=== PATIENT | female | born 1930 | race Caucasian/White ===

== ENCOUNTER 2018-03-14 04:51 | Emergency (ER) | payer OTHER ==
[2018-03-14 05:50] LABS: Absolute Lymphocytes (CBC) 1.5 K/uL (0.7-4.9); Absolute Monocytes 0.6 K/uL (0.1-1.3); Absolute Neutrophil 3.9 K/uL (1.8-8.0); Basophils % 1.1 % (0-1.3); Eosinophils % 6.4 % (0-4.4); Hematocrit 40.2 % (36.0-45.0); Lymphocytes % 23.8 % (15.3-44.8); MPV 7.3 fL (7.6-11.3); Monocytes % 8.5 % (3.3-12.3); RBC Red Blood Cell Count 4.14 M/uL (3.86-4.86)
[2018-03-14] MEDS ORDERED: NA CHLORIDE 0.9% 1,000 ML ONE (05:54)
[2018-03-14 06:04] LABS: Potassium 4.2 mEq/L (3.6-5.0)
[2018-03-14 06:11] LABS: Urine Blood NEGATIVE (NEG); Urine Glucose NEGATIVE (NEG); Urine Protein NEGATIVE (NEG)
[2018-03-14 06:12] LABS: Urine Bacteria LOADED /HPF (<20); Urine Culture Reflex Order NOT NEEDED; Urine RBC NONE SEEN /HPF (NONE SEEN)
--- NOTE | 2018-03-14 06:31 | EDPHYS ---
Physician Documentation [facility] Name: Shanon Han Age: 87 yrs Sex: Female : 1930 Arrival Date: 03/14/2018 Time: 04:54 Bed 18 Private MD: ED Physician Pietro Dillard HPI: 03/14 06:27 This 87 yrs old Female presents to ER via EMS with complaints of AMS, not rn talking. 06:27 The patient presents with decreased responsiveness. Onset: The symptoms/episode rn began/occurred this morning. Possible causes: unknown. Current symptoms: In the emergency department the patient's symptoms have improved. The patient has experienced similar episodes in the past. The patient has not recently seen a physician. Report fine yesterday, this morning not wanting to talk, is following commands, moves everything, just not talking. No fever. NO trauma.. Historical: - Allergies: 05:06 No Known Allergies; ea - Home Meds: 05:06 acetaminophen 500 mg Oral tab 2 tabs every 6 hours [Active]; aspirin 81 mg Oral TbEC 1 ea tab once daily [Active]; bumetanide 0.5 mg Oral tab 1 tab once daily [Active]; carbidopa-levodopa 25-250 mg Oral tab 1 tab 4 times per day [Active]; Durezol 0.05 % ophthalmic drop 1 drop ONCE WEEKLY [Active]; levothyroxine 150 mcg tab 1 tab once daily [Active]; losartan 100 mg Oral tab 1 tab once daily [Active]; meloxicam 7.5 mg Oral tab 1 tab once daily [Active]; midodrine 2.5 mg oral tab 1 tab bid [Active]; paroxetine HCl 20 mg Oral tab 1.5 tab once daily [Active]; Restasis 0.05 % ophthalmic dpet 1 drop 2 times per day [Active]; rivastigmine 9.5 mg/24 hr transdermal pt24 [Active]; venlafaxine 37.5 mg oral tab 1 tab 3 times per day [Active]; meclizine 12.5 mg Oral tab 1 tabs every 12 hours [Active]; - PMHx: 05:06 Anxiety; Depression; Hypertension; Hypothyroidism; Parkinsons; ea - PSHx: 05:06 Tubal ligation; Appendectomy; ea - Immunization history:: Adult Immunizations unknown. - Social history:: Smoking status: unknown. - Ebola Screening: : No symptoms or risks identified at this time. - Family history:: not pertinent. - Hospitalizations: : No recent hospitalization is reported. ROS: 06:27 Unable to obtain ROS due to patient being uncooperative. rn Exam: 06:27 Constitutional: This is a well developed, well nourished patient who is awake, alert, rn and in no acute distress. Head/Face: Normocephalic, atraumatic. Eyes: Pupils equal round and reactive to light, extra-ocular motions intact. Lids and lashes normal. Conjunctiva and sclera are non-icteric and not injected. Cornea within normal limits. Periorbital areas with no swelling, redness, or edema. Neck: Trachea midline, no thyromegaly or masses palpated, and no cervical lymphadenopathy. Supple, full range of motion without nuchal rigidity, or vertebral point tenderness. No Meningismus. Cardiovascular: Regular rate and rhythm with a normal S1 and S2. No gallops, murmurs, or rubs. Normal PMI, no JVD. No pulse deficits. Respiratory: Lungs have equal breath sounds bilaterally, clear to auscultation and percussion. No rales, rhonchi or wheezes noted. No increased work of breathing, no retractions or nasal flaring. Abdomen/GI: Soft, non-tender, with normal bowel sounds. No distension or tympany. No guarding or rebound. No evidence of tenderness throughout. MS/ Extremity: Pulses equal, no cyanosis. Neurovascular intact. Full, normal range of motion. Equal circumference. Neuro: Awake and alert, moves all 4 extremities, answers by shaking head, doesn't want to talk Vital Signs: 04:50 BP 167 / 80; Pulse 70; Resp 18; Temp 97.7; Pulse Ox 99% on R/A; Weight 77.11 kg; Height ea 5 ft. 5 in. (165.10 cm); Pain 0/10; 06:00 BP 180 / 65; Pulse 77; Resp 18; Pulse Ox 99% on R/A; Pain 0/10; ea 04:50 Body Mass Index 28.29 (77.11 kg, 165.10 cm) ea MDM: 04:54 Patient medically screened. rn 06:27 Differential Diagnosis: CVA, electrolyte abnormality, hypoglycemia, pneumonia, UTI, rn volume depletion. Data reviewed: vital signs, nurses notes, lab test result(s), EKG, radiologic studies, CT scan, and as a result, I will discharge patient. Counseling: I had a detailed discussion with the patient and/or guardian regarding: the historical points, exam findings, and any diagnostic results supporting the discharge/admit diagnosis, lab results, radiology results, the need for outpatient follow up, to return to the emergency department if symptoms worsen or persist or if there are any questions or concerns that arise at home. Response to treatment: the patient's condition has returned to base line. Special discussion: I discussed with the patient/guardian in detail that at this point there is no indication for admission to the hospital. It is understood, however, that if the symptoms persist or worsen the patient needs to return immediately for re-evaluation. ED course: Daughter here, states this happens when doesn't eat or has UTI, very comfortable if she goes home with abx for UTI.. 03/14 04:55 Order name: CBC with Diff; Complete Time: 06:23 rn 03/14 04:55 Order name: Basic Metabolic Panel; Complete Time: 06: rn 03/14 04:55 Order name: Urine Microscopic Only; Complete Time: 06:23 rn 03/14 04:55 Order name: Urine Culture rn 03/14 04:55 Order name: Blood Culture Adult (2) rn 03/14 04:55 Order name: Procalcitonin; Complete Time: 06:27 rn 03/14 04:55 Order name: IV Start; Complete Time: 05:57 rn 03/14 04:55 Order name: CT Head Brain wo Cont rn 03/14 04:55 Order name: Urine Dipstick-Ancillary (obtain specimen); Complete Time: 05:57 rn 03/14 04:55 Order name: EKG - Nurse/Tech; Complete Time: 06:29 03/14 04:56 Order name: EKG; Complete Time: 04:56 rn 03/14 05:54 Order name: Urine Dipstick--Ancillary (enter results); Complete Time: 06:23 rg2 Administered Medications: 05:55 Drug: NS 0.9% 500 ml Route: IV; Rate: bolus; Site: right forearm; ea 06:55 Follow up: Response: No adverse reaction; IV Status: Completed infusion ea 06:40 Drug: Rocephin - (cefTRIAXone) 1 grams Route: IVPB; Infused Over: 30 mins; Site: right ea antecubital; 06:55 Follow up: Response: No adverse reaction; IV Status: Completed infusion ea Disposition: 03/14/18 06:31 Discharged to Home. Impression: Urinary tract infection, site not specified, Delirium due to known physiological condition. - Condition is Stable. - Discharge Instructions: Confusion, Urinary Tract Infection. - Prescriptions for cefpodoxime 100 mg Oral Tablet - take 2 tablet by ORAL route every 12 hours for 10 days take with food; 40 tablet. - Medication Reconciliation Form, Thank You Letter, Antibiotic Education, Prescription Opioid Use form. - Follow up: Private Physician; When: As needed; Reason: Recheck today's complaints, Re-evaluation by your physician. - Problem is new. - Symptoms have improved. Signatures: Dispatcher [employer] EDPietro Rouse MD MD rn Antunez, Elena, RN RN ea Corrections: (The following items were deleted from the chart) 07:02 06:31 03/14/2018 06:31 Discharged to Home. Impression: Urinary tract infection, site ea not specified; Delirium due to known physiological condition. Condition is Stable. Forms are Medication Reconciliation Form, Thank You Letter, Antibiotic Education, Prescription Opioid Use. Follow up: Private Physician; When: As needed; Reason: Recheck today's complaints, Re-evaluation by your physician. Problem is new. Symptoms have improved. rn
--- NOTE | 2018-03-14 06:31 | ER ---
Nurse's Notes [facility] Name: Shanon Han Age: 87 yrs Sex: Female : 1930 Arrival Date: 03/14/2018 Time: 04:54 Bed 18 Private MD: Diagnosis: Urinary tract infection, site not specified;Delirium due to known physiological condition Presentation: 03/14 04:50 Presenting complaint: EMS states: Called to [facility], Staff reported pt was ea unresponsive, upon arrival pt was clonic, non verbal and responded to painful stimuli. Transition of care: [facility]. Onset of symptoms was March 14, 2018. Risk Assessment: Do you want to hurt yourself or someone else? Patient reports no desire to harm self or others. Initial Sepsis Screen: Does the patient meet any 2 criteria? No. Patient's initial sepsis screen is negative. Does the patient have a suspected source of infection? No. Patient's initial sepsis screen is negative. Care prior to arrival: None. 04:50 Method Of Arrival: EMS: [facility] ea 04:50 Acuity: HEMANT 3 ea 05:01 Care prior to arrival: BGL 103. ea Triage Assessment: 04:50 General: Appears in no apparent distress. Behavior is calm, cooperative, appropriate ea for age. Pain: Unable to use pain scale. Pt able to follow some commands, pt answers some questions by nodding head. EENT: No deficits noted. Neuro: Level of Consciousness is awake, alert, obeys commands. Cardiovascular: Heart tones S1 S2 present Patient's skin is warm and dry. Respiratory: Airway is patent Respiratory effort is even, unlabored, Respiratory pattern is regular, symmetrical, Breath sounds are clear bilaterally. GI: Abdomen is non-distended, Bowel sounds present X 4 quads. : No signs and/or symptoms were reported regarding the genitourinary system. Derm: Skin is pink, warm \T\ dry. Historical: - Allergies: 05:06 No Known Allergies; ea - Home Meds: 05:06 acetaminophen 500 mg Oral tab 2 tabs every 6 hours [Active]; aspirin 81 mg Oral TbEC 1 ea tab once daily [Active]; bumetanide 0.5 mg Oral tab 1 tab once daily [Active]; carbidopa-levodopa 25-250 mg Oral tab 1 tab 4 times per day [Active]; Durezol 0.05 % ophthalmic drop 1 drop ONCE WEEKLY [Active]; levothyroxine 150 mcg tab 1 tab once daily [Active]; losartan 100 mg Oral tab 1 tab once daily [Active]; meloxicam 7.5 mg Oral tab 1 tab once daily [Active]; midodrine 2.5 mg oral tab 1 tab bid [Active]; paroxetine HCl 20 mg Oral tab 1.5 tab once daily [Active]; Restasis 0.05 % ophthalmic dpet 1 drop 2 times per day [Active]; rivastigmine 9.5 mg/24 hr transdermal pt24 [Active]; venlafaxine 37.5 mg oral tab 1 tab 3 times per day [Active]; meclizine 12.5 mg Oral tab 1 tabs every 12 hours [Active]; - PMHx: 05:06 Anxiety; Depression; Hypertension; Hypothyroidism; Parkinsons; ea - PSHx: 05:06 Tubal ligation; Appendectomy; ea - Immunization history:: Adult Immunizations unknown. - Social history:: Smoking status: unknown. - Ebola Screening: : No symptoms or risks identified at this time. - Family history:: not pertinent. - Hospitalizations: : No recent hospitalization is reported. Screenin:07 Abuse screen: Denies threats or abuse. Nutritional screening: No deficits noted. ea Tuberculosis screening: No symptoms or risk factors identified. Fall Risk Mental Status-. Assessment: 06:14 Reassessment: Patient and/or family updated on plan of care and expected duration. Pain ea level reassessed. Pt verbalized need to daughter, pt alert oriented to self. Respirations even and unlabored chest expansions even and symmetrical. No s/s of pain or discomfort noted at this time. Daughter remains at bedside. 06:40 Reassessment: Patient and/or family updated on plan of care and expected duration. Pain ea level reassessed. Patient is alert, oriented x 3, equal unlabored respirations, skin warm/dry/pink. Pts daughter at bedside. 06:45 Reassessment: Patient and/or family updated on plan of care and expected duration. Pain ea level reassessed. Patient is alert, oriented x 3, equal unlabored respirations, skin warm/dry/pink. Discharge instructions given to patient, verbalized the understanding of instruction. Vital Signs: 04:50 BP 167 / 80; Pulse 70; Resp 18; Temp 97.7; Pulse Ox 99% on R/A; Weight 77.11 kg; Height ea 5 ft. 5 in. (165.10 cm); Pain 0/10; 06:00 BP 180 / 65; Pulse 77; Resp 18; Pulse Ox 99% on R/A; Pain 0/10; ea 04:50 Body Mass Index 28.29 (77.11 kg, 165.10 cm) ea ED Course: 04:54 Patient arrived in ED. rn 04:57 Pietro Dillard MD is Attending Physician. rn 05:00 Triage completed. ea 05:13 Iesha Ruth, SAÚL is Primary Nurse. ea 05:13 Arm band placed on right wrist. ea 05:13 Patient has correct armband on for positive identification. Bed in low position. Call ea light in reach. Side rails up X2. Adult w/ patient. 05:59 CT Head Brain wo Cont In Process Unspecified. EDMS 06:07 CT completed. Patient tolerated procedure well. Patient moved to CT via stretcher. Patient moved back from CT. 06:25 Inserted saline lock: 22 gauge in right forearm, using aseptic technique. Blood ea collected. 06:43 No provider procedures requiring assistance completed. ea 06:59 IV discontinued, intact, bleeding controlled, No redness/swelling at site. Pressure ea dressing applied. Administered Medications: 05:55 Drug: NS 0.9% 500 ml Route: IV; Rate: bolus; Site: right forearm; ea 06:55 Follow up: Response: No adverse reaction; IV Status: Completed infusion ea 06:40 Drug: Rocephin - (cefTRIAXone) 1 grams Route: IVPB; Infused Over: 30 mins; Site: right ea antecubital; 06:55 Follow up: Response: No adverse reaction; IV Status: Completed infusion ea Outcome: 06:31 Discharge ordered by . rn 06:58 Discharged to home ambulatory. ea 06:58 Condition: improved 06:58 Discharge instructions given to patient, Instructed on discharge instructions, follow up and referral plans. medication usage, Demonstrated understanding of instructions, follow-up care, medications, Prescriptions given X 1. 07:02 Patient left the ED. ea Addendum: 03/17/2018 09:48 Addendum: Culture Results: Bacteria is resistant to, has intermediate sensitivity, or i w is not tested against prescribed antibiotics. Report given to ESAU for further evaluation and then to online content editor for follow up with patient. Phone call Attempt #1 pt requests that culture report be faxed to Dr. Guidry in [place], faxed to [phone]. 20:55 Addendum: Other Daughter Maricarmen Hurtado [phone] called to state that the patient f c did not understand her phone call from this am. I explained results and she is requesting that rx be called to [facility] in [place]. This was done. Maricarmen also understand that pt must follow up with Dr Guidry in 2 weeks for f/u urine. Signatures: Dispatcher [employer] Yovany Finnegan Felicia, RN Tammy Shaffer RN RN iw Nieto, Roman, MD MD rn Antunez, Elena, RN RN ea
[2018-03-14] MEDS ORDERED: CEFTRIAXONE/SWI 1gm 1 GM/10 ML SYR ONE (06:34)
[2018-03-14 07:08] VITALS: BP 180/65; O2SAT 99
--- NOTE | 2018-03-14 09:09 | EKG ---
Test Date: 2018-03-14 Test Time: 06:25:26 [employer]: THERESA MEASUREMENT RESULTS: Intervals: Rate: 86 SC: 162 QRSD: 74 QT: 380 QTc: 454 [place]: P: 70 SC: 162 QRS: 22 T: 74 INTERPRETIVE STATEMENTS: Sinus rhythm with premature atrial complexes with aberrant conduction Possible Left atrial enlargement Nonspecific T wave abnormality Abnormal ECG Compared to ECG 07/23/2017 17:35:53 Atrial premature complex(es) now present Aberrant conduction of supraventricular beat(s) now present T-wave abnormality now present Left ventricular hypertrophy no longer present Electronically Signed On 03-14-18 09:08:22 CDT by Mohit Sue
--- NOTE | 2018-03-14 11:34 | RAD REPORT ---
EXAM DESCRIPTION: CT - Head Brain Wo Cont - 03/14/2018 7:09 am CLINICAL HISTORY: Alteration of consciousness/ unresponsive COMPARISON: October 2017 TECHNIQUE: Computed axial tomography of the head was obtained. IV contrast was not requested.A preli minary report was generated by [facility] and reviewed prior to this dictation All CT scans are performed using dose optimization technique as appropriate and may include automated exposure control or mA/KV adjustment according to patient size. FINDINGS: An intracranial bleed is not seen . The ventricles are normal in caliber. No extra-axial fluid collection is noted. Fluid within the sinuses/ mastoids is not seen. IMPRESSION: No acute intracranial abnormality is seen. If patient's symptoms persist MRI of the bra in would be recommended.
== END 2018-03-14 07:02 | disposition home or self-care (01) ==
LOC: ER 04:51
DX: N39.0 Urinary tract infection, site not specified (principal); I10 Essential (primary) hypertension; E03.9 Hypothyroidism, unspecified; G20 Parkinson's disease
CPT/HCPCS: 36415; 70450; 80048; 84145; 85025; 87040; 87077; 87086; 87088; 87186; 93005; 96361; 96374; 99284; J0696; J7030; 81003; 81015

== ENCOUNTER 2018-07-29 12:13 | Emergency (ER) | payer OTHER ==
--- NOTE | 2018-07-29 12:41 | RAD REPORT ---
EXAM DESCRIPTION: CT - Head Brain Wo Cont - 07/29/2018 12:29 pm CLINICAL HISTORY: TRAUMA Head injury. COMPARISON: Head Brain Wo Cont dated 03/14/2018; Head Brain Wo Cont dated 10/07/2017 TECHNIQUE: All CT scans are performed using dose optimization technique as appropriate and may inclu de automated exposure control or mA/KV adjustment according to patient size. FINDINGS: No intracranial hemorrhage, hydrocephalus or extra-axial fluid collection.No areas of brai n edema or evidence of midline shift. The paranasal sinuses and mastoids are clear. The calvarium is intact. IMPRESSION: No acute intracranial abnormality.
--- NOTE | 2018-07-29 13:44 | ER ---
Nurse's Notes [facility] Name: Shanon Han Age: 87 yrs Sex: Female : 1930 Arrival Date: 07/29/2018 Time: 12:14 Bed 14 Private MD: Diagnosis: Superficial injury of head Presentation: 07/29 12:09 Mechanism of Injury: Fall from standing position. Trauma event details: Injury occurred tw2 in the [facility]. 12:15 Presenting complaint: EMS states: pt had an unwitnessed fall , lives at [facility], she tw2 has some bruising and swelling noted to the left eyebrow and on the left occiptal area , hx parkinsons and depression. Transition of care: patient was received from another setting of care (long-term care facility), [facility]. Onset of symptoms was July 29, 2018. Risk Assessment: Do you want to hurt yourself or someone else? Patient reports no desire to harm self or others. Initial Sepsis Screen: Does the patient meet any 2 criteria? No. Patient's initial sepsis screen is negative. Does the patient have a suspected source of infection? No. Patient's initial sepsis screen is negative. Care prior to arrival: None. 12:15 Method Of Arrival: EMS: [facility] tw2 12:15 Acuity: HEMANT 3 tw2 Trauma Activation: Alert Physician: ED Physician; Name: ; Notified At: ; Arrived At: Physician: General Surgeon; Name: ; Notified At: ; Arrived At: Physician: Radiology; Name: ; Notified At: ; Arrived At: Physician: Respiratory; Name: ; Notified At: ; Arrived At: Physician: Lab; Name: ; Notified At: ; Arrived At: Historical: - Allergies: 12:24 No Known Allergies; ph - Home Meds: 12:24 aspirin 81 mg Oral TbEC 1 tab once daily [Active]; bumetanide 0.5 mg Oral tab 1 tab ph once daily [Active]; carbidopa-levodopa 25-250 mg Oral tab 1 tab 4 times per day [Active]; 13:37 acetaminophen 500 mg Oral tab 2 tabs every 6 hours [Active]; Durezol 0.05 % ophthalmic ph drop 1 drop ONCE WEEKLY [Active]; levothyroxine 150 mcg tab 1 tab once daily [Active]; losartan 100 mg Oral tab 1 tab once daily [Active]; meclizine 12.5 mg Oral tab 1 tabs every 12 hours [Active]; meloxicam 7.5 mg Oral tab 1 tab once daily [Active]; midodrine 2.5 mg Oral tab 1 tab BID [Active]; paroxetine HCl 20 mg Oral tab 1.5 tab once daily [Active]; Restasis 0.05 % ophthalmic dpet 1 drop 2 times per day [Active]; rivastigmine 9.5 mg/24 hr transdermal pt24 [Active]; venlafaxine 37.5 mg Oral tab 1 tab 3 times per day [Active]; - PMHx: 13:37 Anxiety; Depression; Hypertension; Hypothyroidism; Parkinsons; ph - PSHx: 13:37 Tubal ligation; Appendectomy; ph - Immunization history:: Adult Immunizations up to date. - Immunization history: Last tetanus immunization: unknown. - Family history:: not pertinent. - Social history:: Smoking status: Patient/guardian denies using tobacco. - Ebola Screening: : No symptoms or risks identified at this time. - Hospitalizations: : No recent hospitalization is reported. Screenin:22 Abuse screen: Denies threats or abuse. Denies injuries from another. Nutritional ph screening: No deficits noted. Tuberculosis screening: No symptoms or risk factors identified. Fall Risk Fall in past 12 months (25 points). No secondary diagnosis (0 pts). No IV (0 pts). Ambulatory Aid- None/Bed Rest/Nurse Assist (0 pts). Gait- Weak (10 pts.). Mental Status- Oriented to own ability (0 pts). Total Lafleur Fall Scale indicates Low Risk Score (25-44 pts). Fall prevention measures have been instituted. Side Rails Up X 2 Placed close to Nursing Station Frequent Obs/Assesments occuring As available Patient and Family Educated on Fall Prevention Program and strategies. Primary Survey: 12:15 A: Airway: patent, No supplemental oxygen in use on arrival. Oral cavity: clear, ph Trachea midline. Breathing/Chest: Respiratory pattern: regular, Respiratory effort: spontaneous, unlabored, Breath sounds: clear, bilaterally. Chest inspection: symmetrical rise and fall of the chest. Circulation: Skin color: pink, Skin temperature: warm, dry. Disability Alert. 13:25 Reassessment Breathing/Chest Respiratory pattern Regular Respiratory effort Spontaneous ph Unlabored Circulation Color [place] Temperature Warm Dry Disability Alert. Assessment: 12:15 General: Appears in no apparent distress. comfortable, Behavior is calm, cooperative, ph appropriate for age. Pain: Complains of pain in left rastafarian. Neuro: Level of Consciousness is awake, alert, obeys commands, Oriented to person, place, situation. Cardiovascular: Denies chest pain, nausea, vomiting. Respiratory: Airway is patent Trachea midline Respiratory effort is even, unlabored, Respiratory pattern is regular, symmetrical. Derm: Skin is intact, is healthy with good turgor, Skin is pink, warm \T\ dry. Bruising that is dark purple, on outer aspect of left eyebrow. Musculoskeletal: Circulation, motion, and sensation intact. Range of motion: limited in all extremities. 13:00 Reassessment: Patient appears in no apparent distress at this time. Patient and/or ph family updated on plan of care and expected duration. Pain level reassessed. Pt d/c home w/ son-in-law. 13:12 Reassessment: Report called to [facility]. ph Vital Signs: 12:16 BP 170 / 71; Pulse 76; Resp 17; Pulse Ox 95% on R/A; Pain 0/10; tw2 13:15 BP 164 / 68; Pulse 74; Resp 18; Temp 97.8; Pulse Ox 96% on R/A; ph Ahmet Coma Score: 12:20 Eye Response: spontaneous(4). Verbal Response: oriented(5). Motor Response: obeys ph commands(6). Total: 15. 13:15 Eye Response: spontaneous(4). Verbal Response: oriented(5). Motor Response: obeys ph commands(6). Total: 15. Trauma Score (Adult): 12:20 Eye Response: spontaneous(1); Verbal Response: oriented(1); Motor Response: obeys ph commands(2); Systolic BP: > 89 mm Hg(4); Respiratory Rate: 10 to 29 per min(4); Ahmet Score: 15; Trauma Score: 12 13:15 Eye Response: spontaneous(1); Verbal Response: oriented(1); Motor Response: obeys ph commands(2); Systolic BP: > 89 mm Hg(4); Respiratory Rate: 10 to 29 per min(4); Ahmet Score: 15; Trauma Score: 12 ED Course: 12:14 Patient arrived in ED. tw2 12:15 Patient maintains SpO2 saturation greater than 95% on room air. Thermoregulation: warm ph blanket given to patient. 12:16 Triage completed. tw2 12:16 Pietro Dillard MD is Attending Physician. rn 12:16 Arm band placed on. tw2 12:19 Celeste Mark, RN is Primary Nurse. ph 12:29 Head Brain Wo Cont In Process Unspecified. EDMS 12:30 Patient has correct armband on for positive identification. Bed in low position. Call ph light in reach. Side rails up X 1. Pulse ox on. NIBP on. Warm blanket given. 12:53 EKG done, by electro mechanical technician. reviewed by Pietro Dillard MD. at1 13:31 No provider procedures requiring assistance completed. Patient did not have IV access ph during this emergency room visit. Administered Medications: No medications were administered Intake: 12:20 PO: 0ml; Total: 0ml. ph 13:15 PO: 0ml; Total: 0ml. ph Output: 12:20 Urine: 0ml; Total: 0ml. ph 13:15 Urine: 0ml; Total: 0ml. ph Outcome: 12:57 Discharge ordered by . rn 13:32 Discharged to [facility]. Report called to [facility] Pt d/c to [facility] w/ ph son-in-law 13:32 Condition: good 13:32 Discharge instructions given to patient, family, Instructed on discharge instructions, follow up and referral plans. Demonstrated understanding of instructions, follow-up care. 13:35 Patient's length of stay was not longer than 2 hours. ph 13:39 Patient left the ED. ph Signatures: Dispatcher [employer] EDMS Pietro Dillard MD MD rn Sil Yeung, bobbin trucker EKG Tat1 Celeste Mark, RN RN Citlali Farrell RN RN tw2 Corrections: (The following items were deleted from the chart) 13:38 12:20 BP 164 / 68; Pulse 74bpm; Resp 18bpm; Pulse Ox 96% RA; Temp 97.8F; ph ph 13:38 12:20 [place] Score=15, Trauma Score=12, ph ph 13:38 12:20 GCS: 15, ph ph 13:38 12:20 PO 0, Urine 0, ph ph
--- NOTE | 2018-07-29 13:44 | EDPHYS ---
Physician Documentation [facility] Name: Shanon Han Age: 87 yrs Sex: Female : 1930 Arrival Date: 07/29/2018 Time: 12:14 Bed 14 Private MD: ED Physician Pietro Dillard HPI: 07/29 12:43 This 87 yrs old Female presents to ER via EMS with complaints of Fall Injury. rn 12:43 Details of fall: The patient fell from an upright position, while standing. Onset: The rn symptoms/episode began/occurred just prior to arrival. Associated injuries: The patient sustained injury to the head. Severity of symptoms: At their worst the symptoms were mild, in the emergency department the symptoms are unchanged. The patient has experienced similar episodes in the past. Reports fall, unknown if passed out but reports frequent syncope and falls due to parkinsons, hit head, denies pain but sent because has bump to head, not on blood thinners. Does not want anything other than ct head head. Refuses blood work or other studies. . Historical: - Allergies: 12:24 No Known Allergies; ph - Home Meds: 12:24 aspirin 81 mg Oral TbEC 1 tab once daily [Active]; bumetanide 0.5 mg Oral tab 1 tab ph once daily [Active]; carbidopa-levodopa 25-250 mg Oral tab 1 tab 4 times per day [Active]; 13:37 acetaminophen 500 mg Oral tab 2 tabs every 6 hours [Active]; Durezol 0.05 % ophthalmic ph drop 1 drop ONCE WEEKLY [Active]; levothyroxine 150 mcg tab 1 tab once daily [Active]; losartan 100 mg Oral tab 1 tab once daily [Active]; meclizine 12.5 mg Oral tab 1 tabs every 12 hours [Active]; meloxicam 7.5 mg Oral tab 1 tab once daily [Active]; midodrine 2.5 mg Oral tab 1 tab BID [Active]; paroxetine HCl 20 mg Oral tab 1.5 tab once daily [Active]; Restasis 0.05 % ophthalmic dpet 1 drop 2 times per day [Active]; rivastigmine 9.5 mg/24 hr transdermal pt24 [Active]; venlafaxine 37.5 mg Oral tab 1 tab 3 times per day [Active]; - PMHx: 13:37 Anxiety; Depression; Hypertension; Hypothyroidism; Parkinsons; ph - PSHx: 13:37 Tubal ligation; Appendectomy; ph - Immunization history:: Adult Immunizations up to date. - Immunization history: Last tetanus immunization: unknown. - Family history:: not pertinent. - Social history:: Smoking status: Patient/guardian denies using tobacco. - Ebola Screening: : No symptoms or risks identified at this time. - Hospitalizations: : No recent hospitalization is reported. ROS: 12:43 Constitutional: Negative for fever, chills, and weight loss, Eyes: Negative for injury, rn pain, redness, and discharge, Neck: Negative for injury, pain, and swelling, Cardiovascular: Negative for chest pain, palpitations, and edema, Respiratory: Negative for shortness of breath, cough, wheezing, and pleuritic chest pain, Abdomen/GI: Negative for abdominal pain, nausea, vomiting, diarrhea, and constipation, MS/Extremity: Negative for injury and deformity, Skin: Negative for injury, rash, and discoloration, Neuro: Negative for headache, weakness, numbness, tingling, and seizure. Exam: 12:43 Constitutional: This is a well developed, well nourished patient who is awake, alert, rn and in no acute distress. Head/Face: Normocephalic, small abrasion over right eyebrow, + small hematoma left parietal region, no depression, no crepitus Eyes: Lids and lashes normal. Conjunctiva and sclera are non-icteric and not injected. Cornea within normal limits. ENT: No oral trauma Neck: NO midline tenderness Cardiovascular: Regular rate and rhythm with a normal S1 and S2. No pulse deficits. Respiratory: Lungs have equal breath sounds bilaterally, clear to auscultation Abdomen/GI: soft, non-tender MS/ Extremity: Pulses equal, no cyanosis. Neurovascular intact. Full, normal range of motion. Equal circumference. Neuro: Awake and alert, GCS 15, oriented to person, place, time, and situation. Cranial nerves II-XII grossly intact. Motor strength 5/5 in all extremities. Sensory grossly intact. Cerebellar exam normal. Vital Signs: 12:16 BP 170 / 71; Pulse 76; Resp 17; Pulse Ox 95% on R/A; Pain 0/10; tw2 13:15 BP 164 / 68; Pulse 74; Resp 18; Temp 97.8; Pulse Ox 96% on R/A; ph Ahmet Coma Score: 12:20 Eye Response: spontaneous(4). Verbal Response: oriented(5). Motor Response: obeys ph commands(6). Total: 15. 13:15 Eye Response: spontaneous(4). Verbal Response: oriented(5). Motor Response: obeys ph commands(6). Total: 15. Trauma Score (Adult): 12:20 Eye Response: spontaneous(1); Verbal Response: oriented(1); Motor Response: obeys ph commands(2); Systolic BP: > 89 mm Hg(4); Respiratory Rate: 10 to 29 per min(4); Chemult Score: 15; Trauma Score: 12 13:15 Eye Response: spontaneous(1); Verbal Response: oriented(1); Motor Response: obeys ph commands(2); Systolic BP: > 89 mm Hg(4); Respiratory Rate: 10 to 29 per min(4); Ahmet Score: 15; Trauma Score: 12 MDM: 12:16 Patient medically screened. rn 12:55 Differential diagnosis: abrasion, closed head injury, contusion, fracture. Data rn reviewed: vital signs, nurses notes, radiologic studies, CT scan, and as a result, I will discharge patient. Counseling: I had a detailed discussion with the patient and/or guardian regarding: the historical points, exam findings, and any diagnostic results supporting the discharge/admit diagnosis, radiology results, the need for outpatient follow up, to return to the emergency department if symptoms worsen or persist or if there are any questions or concerns that arise at home. Special discussion: Based on the patient's history, exam and DX evaluation, there is no indication for emergent intervention or inpatient TX. It is understood by the patient/guardian that if the SXs persist or worsen they need to return immediately for re-evaluation. I discussed with the patient/guardian in detail that at this point there is no indication for admission to the hospital. It is understood, however, that if the symptoms persist or worsen the patient needs to return immediately for re-evaluation. 07/29 12:27 Order name: Head Brain Wo Cont; Complete Time: 12:55 EDMS 07/29 12:16 Order name: EKG; Complete Time: 13:37 rn 07/29 12:16 Order name: EKG - Nurse/Tech; Complete Time: 13:02 rn Administered Medications: No medications were administered Disposition: 07/29/18 12:57 Discharged to Home. Impression: Superficial injury of head. - Condition is Stable. - Discharge Instructions: Head Injury, Adult, Hematoma. - Medication Reconciliation Form, Thank You Letter, Antibiotic Education, Prescription Opioid Use form. - Follow up: Private Physician; When: As needed; Reason: Recheck today's complaints, Re-evaluation by your physician. - Problem is new. - Symptoms have improved. Signatures: Dispatcher [employer] EDMS Pietro Dillard MD MD rn Celeste Mark RN RN ph Corrections: (The following items were deleted from the chart) 13:39 12:57 07/29/2018 12:57 Discharged to Home. Impression: Superficial injury of head. ph Condition is Stable. Forms are Medication Reconciliation Form, Thank You Letter, Antibiotic Education, Prescription Opioid Use. Follow up: Private Physician; When: As needed; Reason: Recheck today's complaints, Re-evaluation by your physician. Problem is new. Symptoms have improved. rn
[2018-07-29 14:28] VITALS: BP 164/68; TEMP 97.8; O2SAT 96
--- NOTE | 2018-07-30 07:31 | EKG ---
Test Date: 2018-07-29 Test Time: 12:50:51 Flying Shear Operator: MANDEEP MEASUREMENT RESULTS: Intervals: Rate: 77 CA: 166 QRSD: 82 QT: 398 QTc: 450 [place]: P: 79 CA: 166 QRS: 43 T: 74 INTERPRETIVE STATEMENTS: Normal sinus rhythm Possible Left atrial enlargement Nonspecific ST and T wave abnormality Abnormal ECG Compared to ECG 03/14/2018 06:25:26 ST (T wave) deviation now present Atrial premature complex(es) no longer present Aberrant conduction of supraventricular beat(s) no longer present T-wave abnormality no longer present Electronically Signed On 07-30-18 07:27:54 CDT by Mohit Sue
== END 2018-07-29 13:39 | disposition home or self-care (01) ==
LOC: ER 12:13
DX: S00.90XA Unspecified superficial injury of unspecified part of head, initial encounter (principal); W18.39XA Other fall on same level, initial encounter; Y93.89 Activity, other specified; Y92.9 Unspecified place or not applicable; Z79.82 Long term (current) use of aspirin; I10 Essential (primary) hypertension; E03.9 Hypothyroidism, unspecified; G20 Parkinson's disease; F32.9 Major depressive disorder, single episode, unspecified; F41.9 Anxiety disorder, unspecified
CPT/HCPCS: 70450; 93005; 99284

== ENCOUNTER 2018-08-01 11:39 | Emergency (ER) | payer OTHER ==
[2018-08-01 12:14] LABS: Absolute Lymphocytes (CBC) 0.9 K/uL (0.7-4.9); Absolute Monocytes 0.5 K/uL (0.1-1.3); Absolute Neutrophil 4.1 K/uL (1.8-8.0); Basophils % 0.7 % (0-1.3); Eosinophils % 5.3 % (0-4.4); Hematocrit 32.2 % (36.0-45.0); MCH 29.4 pg (27.0-35.0); MCV 90.2 fL (80-100); MPV 7.7 fL (7.6-11.3); Monocytes % 7.8 % (3.3-12.3); RBC Red Blood Cell Count 3.57 M/uL (3.86-4.86)
[2018-08-01 12:20] LABS: Protime INR 1.08
[2018-08-01 12:30] LABS: ALT/SGPT 11 U/L (12-78); AST/SGOT 13 U/L (15-37); Albumin 3.5 g/dL (3.4-5.0); Alkaline Phosphatase 101 U/L (45-117); BUN Blood Urea Nitrogen 25 mg/dL (7-18); Bicarbonate 26 mmol/L (21-32); Bilirubin Direct 0.1 mg/dL (0-0.2); Bilirubin Total 0.3 mg/dL (0.2-1.0); Glucose Level 92 mg/dL (74-106); NT PRO-BNP 311 pg/mL (<450); Potassium 4.5 mmol/L (3.5-5.1); Protein, Total 7.4 g/dL (6.4-8.2); Sodium Level 139 mmol/L (136-145); Troponin (Emerg Dept Use Only) < 0.02 ng/mL (0.0-0.045)
--- NOTE | 2018-08-01 12:59 | RAD REPORT ---
EXAM DESCRIPTION: RAD - Chest Single View - 08/01/2018 12:07 pm CLINICAL HISTORY: Altered mental status, shortness of breath COMPARISON: July 2017, November 2016 TECHNIQUE: AP portable chest image was obtained 1154 hour . FINDINGS: Interstitial lung disease is evident similar in appearance to prior imaging. No focal mass or consolidation. Failure and volume overload are not suspected. No measurable pleural effusion and no pneumothorax. No acute bone findings seen. Progressive degenerative change present at the right sh oulder joint. No acute aortic findings suspected. IMPRESSION: Chronic interstitial lung disease similar to comparison. No acute cardiopulmonary finding.
--- NOTE | 2018-08-01 13:03 | RAD REPORT ---
EXAM DESCRIPTION: CT - CTHCSPWOC - 08/01/2018 12:46 pm CLINICAL HISTORY: Head and neck injury, headache, neck pain COMPARISON: CT imaging July 2017 TECHNIQUE: Axial 5 mm thick images of the head were obtained. Axial 2 mm thick images of the cervic al spine were obtained with sagittal and coronal reconstruction images generated and reviewed. All CT scans are performed using dose optimization technique as appropriate and may include automated exposure control or mA/KV adjustment according to patient size. FINDINGS: No intracranial hemorrhage, mass, edema or acute intracranial finding. No suspicion for acute infarct ion. Moderate atrophy and chronic ischemic changes are present. Ventricular size is in proportion to volume loss. Arterial and physiologic calcifications are present. Mastoid air cells and paranasal sin uses are clear. No globe or orbit abnormality seen. Intracranial findings are similar to comparison. Cervical body height and alignment are normal. C4-5, C5-6 and C6-7 disc space narrowing present simil ar to comparison. Endplate spurring changes are present. Bony foraminal encroachment at C6-7. No frac ture or acute bony abnormality. No pathologic bone process. Normal variant left cervical rib. No sign ificant change from July 2017. No paraspinal mass or hematoma. IMPRESSION: Negative CT head examination for acute or significant finding. Stable moderate severity atrophy and chronic ischemic changes are present. Negative CT cervical spine examination for acute finding. Degenerative changes detailed above are si milar to July 2017.
[2018-08-01 13:25] LABS: Urine Blood NEGATIVE (NEG); Urine Glucose NEGATIVE (NEG); Urine Protein NEGATIVE (NEG); Urine pH 5.5 (5.0-7.0)
[2018-08-01 13:40] LABS: Urine Bacteria LOADED /HPF (<20); Urine Culture Reflex Order REFLEXED; Urine RBC NONE SEEN /HPF (NONE SEEN)
[2018-08-01] MEDS ORDERED: CEFTRIAXONE/SWI 1gm 1 GM/10 ML SYR ONE (13:57)
--- NOTE | 2018-08-01 14:22 | EDPHYS ---
Physician Documentation [facility] Name: Shanon Han Age: 87 yrs Sex: Female : 1930 Arrival Date: 08/01/2018 Time: 11:46 Bed 5 Private MD: ED Physician Prabhu Hunter HPI: 08/01 14:10 This 87 yrs old Female presents to ER via EMS with complaints of Altered gs Mental Status. 14:10 The patient presents with confusion. Onset: The symptoms/episode began/occurred gs acutely, just prior to arrival. Possible causes: unknown. Associated signs and symptoms: Pertinent negatives: chest pain, combativeness. Current symptoms: In the emergency department the patient's symptoms have resolved. The patient has experienced similar episodes in the past, several times. Historical: - Allergies: 11:49 No Known Allergies; la1 - PMHx: 11:49 Anxiety; Depression; Hypertension; Hypothyroidism; Parkinsons; la1 - Immunization history:: Adult Immunizations up to date. - Social history:: Smoking status: Patient/guardian denies using tobacco. - Ebola Screening: : No symptoms or risks identified at this time. ROS: 14:10 All other systems are negative. gs Exam: 14:10 Head/Face: Normocephalic, atraumatic. Eyes: Pupils equal round and reactive to light, gs extra-ocular motions intact. Lids and lashes normal. Conjunctiva and sclera are non-icteric and not injected. Cornea within normal limits. Periorbital areas with no swelling, redness, or edema. ENT: Nares patent. No nasal discharge, no septal abnormalities noted. Tympanic membranes are normal and external auditory canals are clear. Oropharynx with no redness, swelling, or masses, exudates, or evidence of obstruction, uvula midline. Mucous membranes moist. Neck: Trachea midline, no thyromegaly or masses palpated, and no cervical lymphadenopathy. Supple, full range of motion without nuchal rigidity, or vertebral point tenderness. No Meningismus. Chest/axilla: Normal chest wall appearance and motion. Nontender with no deformity. No lesions are appreciated. Cardiovascular: Regular rate and rhythm with a normal S1 and S2. No gallops, murmurs, or rubs. Normal PMI, no JVD. No pulse deficits. Respiratory: Lungs have equal breath sounds bilaterally, clear to auscultation and percussion. No rales, rhonchi or wheezes noted. No increased work of breathing, no retractions or nasal flaring. Abdomen/GI: Soft, non-tender, with normal bowel sounds. No distension or tympany. No guarding or rebound. No evidence of tenderness throughout. Back: No spinal tenderness. No costovertebral tenderness. Full range of motion. Skin: Warm, dry with normal turgor. Normal color with no rashes, no lesions, and no evidence of cellulitis. MS/ Extremity: Pulses equal, no cyanosis. Neurovascular intact. Full, normal range of motion. 14:10 Constitutional: The patient appears alert, awake. 14:10 Neuro: Exam negative for acute changes, Motor: moves all fours, Sensation: no obvious gross deficits, no acute changes. 14:10 Head/face: Noted is contusion, that is superficial, of the left sikhism. Vital Signs: 11:49 BP 159 / 69; Pulse 78; Resp 16; Temp 97.2; Pulse Ox 100% on R/A; la1 13:25 BP 165 / 79; Pulse 74; Resp 16; Pulse Ox 98% on R/A; la1 14:48 BP 166 / 74; Pulse 74; Resp 16; Temp 98.2; Pulse Ox 98% on R/A; la1 MDM: 11:51 Patient medically screened. 14:10 Differential Diagnosis: CVA, intracranial bleed, UTI. Data reviewed: vital signs, nurses notes. Counseling: I had a detailed discussion with the patient and/or guardian regarding: the historical points, exam findings, and any diagnostic results supporting the discharge/admit diagnosis, lab results, radiology results. Response to treatment: the patient's symptoms have markedly improved after treatment, and as a result, I will discharge patient. 08/01 11:52 Order name: Basic Metabolic Panel; Complete Time: 13: 08/01 11:52 Order name: CBC with Diff; Complete Time: 13: 08/01 11:52 Order name: LFT's; Complete Time: 13: 08/01 11:52 Order name: NT PRO-BNP; Complete Time: 13: 08/01 11:52 Order name: PT-INR; Complete Time: 13: 08/01 11:52 Order name: Troponin (emerg Dept Use Only); Complete Time: 13:07 08/01 11:52 Order name: XRAY Chest (1 view); Complete Time: 13:07 08/01 11:52 Order name: EKG; Complete Time: 11:52 08/01 11:52 Order name: Cardiac monitoring; Complete Time: 11:59 08/01 11:52 Order name: Urine Microscopic Only 08/01 12:20 Order name: CT Head C Spine; Complete Time: 13:07 08/01 13:20 Order name: Urine Dipstick--Ancillary (enter results) 08/01 13:41 Order name: Urine Culture [facility] 08/01 11:52 Order name: EKG - Nurse/Tech; Complete Time: 11:59 08/01 11:52 Order name: IV Saline Lock; Complete Time: 11:59 08/01 11:52 Order name: Labs collected and sent; Complete Time: 11:59 08/01 11:52 Order name: O2 Per Protocol; Complete Time: 11:59 08/01 11:52 Order name: O2 Sat Monitoring; Complete Time: 11:59 08/01 11:52 Order name: Urine Dipstick-Ancillary (obtain specimen); Complete Time: 13:16 gs Administered Medications: 13:55 Drug: Rocephin 1 grams Route: IV; Rate: calculated rate; Site: right antecubital; la1 14:48 Follow up: IV Status: Completed infusion la1 Disposition: 08/01/18 14:21 Discharged to Home. Impression: Cystitis. - Condition is Stable. - Discharge Instructions: Urinary Tract Infection, Adult. - Prescriptions for Cipro 500 mg Oral Tablet - take 1 tablet by ORAL route every 12 hours for 7 days; 14 tablet. - Medication Reconciliation Form, Thank You Letter, Antibiotic Education, Prescription Opioid Use form. - Follow up: Private Physician; When: 1 - 2 days; Reason: Re-evaluation by your physician. Signatures: Dispatcher [employer] EDAbdriashid Iyer RN RN la1 Prabhu Hunter MD MD gs Corrections: (The following items were deleted from the chart) 14:49 14:21 08/01/2018 14:21 Discharged to Home. Impression: Cystitis. Condition is Stable. la1 Forms are Medication Reconciliation Form, Thank You Letter, Antibiotic Education, Prescription Opioid Use. Follow up: Private Physician; When: 1 - 2 days; Reason: Re-evaluation by your physician. gs
--- NOTE | 2018-08-01 14:22 | ER ---
Nurse's Notes [facility] Name: Shanon Han Age: 87 yrs Sex: Female : 1930 Arrival Date: 08/01/2018 Time: 11:46 Bed 5 Private MD: Diagnosis: Cystitis Presentation: 08/01 11:46 Presenting complaint: EMS states: PT was at [facility] and walked in to the lobby and la1 claimed she wanted to leave. Pt then sat in a chair and would no longer speak to anyone. Pt eyes are closed and will not respond verbally until painful stimulus is applied, pt then responds appropriately. Pt does not present with any acute neurological deficits. Transition of care: patient was not received from another setting of care. Onset of symptoms was August 01, 2018 at 11:00. Risk Assessment: Do you want to hurt yourself or someone else? Patient reports no desire to harm self or others. Initial Sepsis Screen: Does the patient meet any 2 criteria? Altered Mental Status. Does the patient have a suspected source of infection? No. Patient's initial sepsis screen is negative. Care prior to arrival: None. 11:46 Method Of Arrival: EMS: [facility] la1 11:46 Acuity: HEMANT 2 la1 Historical: - Allergies: 11:49 No Known Allergies; la1 - PMHx: 11:49 Anxiety; Depression; Hypertension; Hypothyroidism; Parkinsons; la1 - Immunization history:: Adult Immunizations up to date. - Social history:: Smoking status: Patient/guardian denies using tobacco. - Ebola Screening: : No symptoms or risks identified at this time. Screenin:07 Abuse screen: Denies threats or abuse. Nutritional screening: No deficits noted. la1 Tuberculosis screening: No symptoms or risk factors identified. Fall Risk Fall in past 12 months (25 points). Secondary diagnosis (15 points) IV access (20 points). Gait- Weak (10 pts.). Mental Status- Overestimates/Forgets Limitations (15 pts.). Total Lafleur Fall Scale indicates High Risk Score (45 or more points). Side Rails Up X 2 Family Present and informed to notify staff if the need to leave the bedside As available patient and family educated on Fall Prevention Program and Strategies. Assessment: 11:50 General: Appears well groomed, Behavior is calm, cooperative. Pain: Denies pain. Neuro: la1 Level of Consciousness is Pt is laying in bed with eyes closed, will not respond to verbal stimulus unless painful stimulus is applied but then will answer appropriately. Pt able to sit up in stretcher and hole herself up without assistance.. Cardiovascular: Heart tones S1 S2 present. Respiratory: Airway is patent Respiratory effort is even, unlabored, Respiratory pattern is regular, symmetrical, Breath sounds are clear bilaterally. GI: No signs and/or symptoms were reported involving the gastrointestinal system. : No signs and/or symptoms were reported regarding the genitourinary system. 12:48 Reassessment: Patient states symptoms have improved. Pt now back at baseline per la1 daughter, awake, asking for food and drink. 13:45 Reassessment: Patient appears in no apparent distress at this time. No changes from la1 previously documented assessment. Patient and/or family updated on plan of care and expected duration. Pain level reassessed. Patient is alert, oriented x 3, equal unlabored respirations, skin warm/dry/pink. Vital Signs: 11:49 BP 159 / 69; Pulse 78; Resp 16; Temp 97.2; Pulse Ox 100% on R/A; la1 13:25 BP 165 / 79; Pulse 74; Resp 16; Pulse Ox 98% on R/A; la1 14:48 BP 166 / 74; Pulse 74; Resp 16; Temp 98.2; Pulse Ox 98% on R/A; la1 ED Course: 11:46 Patient arrived in ED. la1 11:46 Prabhu Hunter MD is Attending Physician. gs 11:48 Triage completed. la1 11:50 Arm band placed on right wrist. la1 11:50 EKG done, by ED staff, reviewed by Prabhu Hunter MD. jb1 11:59 Initial lab(s) drawn, by id, sent to lab. Inserted saline lock: 22 gauge in right jb1 antecubital area, using aseptic technique. Blood collected. 12:03 Abdirashid Pryor, SAÚL is Primary Nurse. la1 12:05 X-ray completed. Portable x-ray completed in exam room. Patient tolerated procedure ag1 well. 12:06 XRAY Chest (1 view) In Process Unspecified. EDMS 12:08 Bed in low position. Call light in reach. la1 12:45 CT completed. Patient moved to CT via stretcher. Patient moved back from CT. cw1 12:46 CT Head C Spine In Process Unspecified. EDMS 13:16 Urine collected: straight cath specimen, cloudy, radha colored. jb1 14:48 No provider procedures requiring assistance completed. IV discontinued, intact, la1 bleeding controlled, No redness/swelling at site. Pressure dressing applied. Administered Medications: 13:55 Drug: Rocephin 1 grams Route: IV; Rate: calculated rate; Site: right antecubital; la1 14:48 Follow up: IV Status: Completed infusion la1 Outcome: 14:21 Discharge ordered by . gs 14:48 Discharged to [facility]. la1 14:48 Condition: stable 14:48 Discharge instructions given to family, Instructed on discharge instructions, follow up and referral plans. medication usage, Demonstrated understanding of instructions, follow-up care, medications, Prescriptions given X 1. 14:49 Patient left the ED. la1 Addendum: 08/04/2018 07:13 Addendum: Culture Results: Positive urine culture. No further action required. Bacteria i w sensitive to prescribed antibiotic. Signatures: Dispatcher [employer] EDMS Reid Maynard jb1 Tammy Shi, RN Trish Snell cw1 Abdirashid Pryor RN RN la1 Gallaway, Ashley agPrabhu Jacinto MD MD
[2018-08-01 14:58] VITALS: O2SAT 98
[2018-08-01 14:59] VITALS: BP 166/74; TEMP 98.2
--- NOTE | 2018-08-02 07:04 | EKG ---
Test Date: 2018-08-01 Test Time: 11:49:53 Barge Worker: DAVID MEASUREMENT RESULTS: Intervals: Rate: 84 AK: 154 QRSD: 76 QT: 384 QTc: 453 [place]: P: 57 AK: 154 QRS: -2 T: 20 INTERPRETIVE STATEMENTS: Sinus rhythm with occasional premature ventricular complexes Minimal voltage criteria for LVH, may be normal variant Nonspecific T wave abnormality Abnormal ECG Compared to ECG 07/29/2018 12:50:51 Ventricular premature complex(es) now present Left ventricular hypertrophy now present T-wave abnormality now present ST (T wave) deviation no longer present Electronically Signed On 08-02-18 07:04:10 CDT by Gilbert Stokes
== END 2018-08-01 14:49 | disposition home or self-care (01) ==
LOC: ER 11:39
DX: N30.90 Cystitis, unspecified without hematuria (principal); I10 Essential (primary) hypertension; G20 Parkinson's disease
CPT/HCPCS: 36415; 70450; 71045; 72125; 80048; 80076; 83880; 84484; 85025; 85610; 87077; 87086; 87088; 87186; 93005; 96365; 99284; J0696; 81003; 81015

== ENCOUNTER 2018-08-17 20:35 | Emergency (ER) | payer OTHER ==
--- NOTE | 2018-08-17 21:24 | RAD REPORT ---
EXAM DESCRIPTION: CT - CTHCSPWOC - 08/17/2018 9:08 pm CLINICAL HISTORY: Trauma, head and neck injury. SWELLING COMPARISON: Head C Spine Mpr Wo Con dated 08/01/2018; Head C Spine Mpr Wo Con dated 08/03/2017; Head C Spine Mpr Wo Con dated 07/23/2017; Head C Spine Mpr Wo Con dated 11/18/2016 TECHNIQUE: Axial 5 mm thick images of the head were obtained. Axial 2 mm thick images of the cervical spine were obtained with sagittal and coronal reconstruction images generated and reviewed. All CT scans are performed using dose optimization technique as appropriate and may include automated exposure control or mA/KV adjustment according to patient size. FINDINGS: CT HEAD WITHOUT CONTRAST: No acute hemorrhage, hydrocephalus or extra-axial collection is identified.Mild generalized brain atr ophy is present with mild periventricular and deep white matter chronic microvascular ischemic change s.No areas of brain edema or midline shift. The paranasal sinuses and mastoids are clear.The calvarium is intact. CT CERVICAL SPINE WITHOUT CONTRAST: No fracture or subluxation.Mild lower cervical degenerative changes are present. A left cervical rib is seen. No prevertebral soft tissues swelling is identified. 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 IMPRESSION: No acute intracranial or cervical spine findings.
--- NOTE | 2018-08-17 21:32 | ER ---
Nurse's Notes [facility] Name: Shanon Han Age: 87 yrs Sex: Female : 1930 Arrival Date: 08/17/2018 Time: 20:37 Bed 24 Private MD: Diagnosis: Contusion of other part of head Presentation: 08/17 20:45 Presenting complaint: EMS states: "SHE IS AT THE DOOR OF THE BATHROOM. SHE WAS TRYING rv TO REACH SOMETHING ON THE FLOOR AND BEND OVER THEN FELL AT AROUND 2000H. NO LOSS OF CONSCIOUSNESS AND PATIENT IS NOT ON BLOOD THINNERS.". Transition of care: patient was not received from another setting of care. Onset of symptoms was August 17, 2018 at 20:00. Risk Assessment: Do you want to hurt yourself or someone else? Patient reports no desire to harm self or others. Initial Sepsis Screen: Does the patient meet any 2 criteria? No. Patient's initial sepsis screen is negative. Does the patient have a suspected source of infection? No. Patient's initial sepsis screen is negative. Care prior to arrival: None. 20:45 Method Of Arrival: EMS: [facility] rv 20:45 Acuity: HEMANT 3 rv Historical: - Allergies: 20:49 No Known Allergies; rv - Home Meds: 20:49 acetaminophen 500 mg Oral tab 2 tabs every 6 hours [Active]; aspirin 81 mg Oral TbEC 1 rv tab once daily [Active]; bumetanide 0.5 mg Oral tab 1 tab once daily [Active]; carbidopa-levodopa 25-250 mg Oral tab 1 tab 4 times per day [Active]; Durezol 0.05 % ophthalmic drop 1 drop ONCE WEEKLY [Active]; levothyroxine 150 mcg tab 1 tab once daily [Active]; losartan 100 mg Oral tab 1 tab once daily [Active]; meclizine 12.5 mg Oral tab 1 tabs every 12 hours [Active]; meloxicam 7.5 mg Oral tab 1 tab once daily [Active]; midodrine 2.5 mg Oral tab 1 tab BID [Active]; paroxetine HCl 20 mg Oral tab 1.5 tab once daily [Active]; Restasis 0.05 % ophthalmic dpet 1 drop 2 times per day [Active]; rivastigmine 9.5 mg/24 hr transdermal pt24 [Active]; venlafaxine 37.5 mg Oral tab 1 tab 3 times per day [Active]; - PMHx: 20:49 Anxiety; Depression; Hypertension; Hypothyroidism; Parkinsons; rv - PSHx: 20:49 Unable to obtain; rv - Immunization history:: Adult Immunizations up to date. - Social history:: Smoking status: unknown. - Ebola Screening: : Patient negative for fever greater than or equal to 101.5 degrees Fahrenheit, and additional compatible Ebola Virus Disease symptoms Patient denies exposure to infectious person Patient denies travel to an Ebola-affected area in the 21 days before illness onset. Screenin:52 Abuse screen: Denies threats or abuse. Denies injuries from another. Nutritional rv screening: No deficits noted. Tuberculosis screening: No symptoms or risk factors identified. Fall Risk Fall in past 12 months (25 points). Secondary diagnosis (15 points) PARKIINSON'S DISEASE. No IV (0 pts). Ambulatory Aid- None/Bed Rest/Nurse Assist (0 pts). Gait- Impaired (20 pts.). Mental Status- Oriented to own ability (0 pts). Total Lafleur Fall Scale indicates High Risk Score (45 or more points). Fall prevention measures have been instituted. Side Rails Up X 2 Placed Close to Nursing Station Frequent Obs/Assessments Occuring. Assessment: 20:52 General: Appears in no apparent distress. comfortable, Behavior is calm, cooperative. rv Pain: Denies pain. Neuro: Level of Consciousness is awake, alert, obeys commands, Oriented to person, place, time, situation. Cardiovascular: Capillary refill < 3 seconds. Respiratory: Airway is patent. GI: No signs and/or symptoms were reported involving the gastrointestinal system. : No signs and/or symptoms were reported regarding the genitourinary system. EENT: No signs and/or symptoms were reported regarding the EENT system. Derm: Skin is intact. Musculoskeletal: Swelling present in HEAD. 22:03 Reassessment: Patient appears in no apparent distress at this time. Patient and/or rv family updated on plan of care and expected duration. Pain level reassessed. Patient is alert, oriented x 3, equal unlabored respirations, skin warm/dry/pink. 22:53 Reassessment: Patient appears in no apparent distress at this time. Patient and/or rv family updated on plan of care and expected duration. Pain level reassessed. Patient is alert, oriented x 3, equal unlabored respirations, skin warm/dry/pink. awaiting transport from [facility]. Vital Signs: 20:55 BP 148 / 58; Pulse 83; Resp 17; Temp 98.2; Pulse Ox 99% on R/A; rv 22:52 BP 149 / 67; Pulse 83; Resp 18; Pulse Ox 99% on R/A; rv 23:43 BP 157 / 73; Pulse 84; Resp 18; Pulse Ox 99% on R/A; rv Ahmet Coma Score: 21:26 Eye Response: spontaneous(4). Verbal Response: oriented(5). Motor Response: obeys gs commands(6). Total: 15. ED Course: 20:37 Patient arrived in ED. al2 20:46 Triage completed. rv 20:46 Prabhu Hunter MD is Attending Physician. gs 20:55 Arm band placed on right wrist. rv 20:55 Patient has correct armband on for positive identification. Bed in low position. Call rv light in reach. Side rails up X2. Pulse ox on. NIBP on. 20:[address] vr 21:10 CT Head C Spine In Process Unspecified. EDMS 23:44 No provider procedures requiring assistance completed. Patient did not have IV access rv during this emergency room visit. Administered Medications: No medications were administered Outcome: 21:31 Discharge ordered by . 23:[address] Report called to [facility] Transfer form completed. Valuables rv list done. 23:44 Condition: good 23:44 Discharge instructions given to jail, Instructed on discharge instructions, follow up and referral plans. Demonstrated understanding of instructions, follow-up care. 23:45 Patient left the ED. rv Signatures: Dispatcher [employer] EDAZ Misty Ortiz vr Prabhu Hunter MD MD gs Love, Angelica al Stephen Mora RN RN rv
--- NOTE | 2018-08-17 21:32 | EDPHYS ---
Physician Documentation [facility] Name: Shanon Han Age: 87 yrs Sex: Female : 1930 Arrival Date: 08/17/2018 Time: 20:37 Bed 24 Private MD: ED Physician Prabhu Hunter HPI: 08/17 21:26 This 87 yrs old Female presents to ER via EMS with unknown complaint. gs 21:26 The patient or guardian reports injury, pain, swelling, tenderness. The complaints gs affect the right occipital area. Context of injury: The problem was sustained at home, resulted from a fall, from a standing position. Onset: The symptoms/episode began/occurred acutely, just prior to arrival. Associated signs and symptoms: Pertinent positives: headache. Severity of symptoms: At their worst the symptoms were moderate, in the emergency department the symptoms are unchanged. It is unknown whether or not the patient has had similar symptoms in the past. Historical: - Allergies: 20:49 No Known Allergies; rv - Home Meds: 20:49 acetaminophen 500 mg Oral tab 2 tabs every 6 hours [Active]; aspirin 81 mg Oral TbEC 1 rv tab once daily [Active]; bumetanide 0.5 mg Oral tab 1 tab once daily [Active]; carbidopa-levodopa 25-250 mg Oral tab 1 tab 4 times per day [Active]; Durezol 0.05 % ophthalmic drop 1 drop ONCE WEEKLY [Active]; levothyroxine 150 mcg tab 1 tab once daily [Active]; losartan 100 mg Oral tab 1 tab once daily [Active]; meclizine 12.5 mg Oral tab 1 tabs every 12 hours [Active]; meloxicam 7.5 mg Oral tab 1 tab once daily [Active]; midodrine 2.5 mg Oral tab 1 tab BID [Active]; paroxetine HCl 20 mg Oral tab 1.5 tab once daily [Active]; Restasis 0.05 % ophthalmic dpet 1 drop 2 times per day [Active]; rivastigmine 9.5 mg/24 hr transdermal pt24 [Active]; venlafaxine 37.5 mg Oral tab 1 tab 3 times per day [Active]; - PMHx: 20:49 Anxiety; Depression; Hypertension; Hypothyroidism; Parkinsons; rv - PSHx: 20:49 Unable to obtain; rv - Immunization history:: Adult Immunizations up to date. - Social history:: Smoking status: unknown. - Ebola Screening: : Patient negative for fever greater than or equal to 101.5 degrees Fahrenheit, and additional compatible Ebola Virus Disease symptoms Patient denies exposure to infectious person Patient denies travel to an Ebola-affected area in the 21 days before illness onset. ROS: 21:26 All other systems are negative. gs Exam: 21:26 Eyes: Pupils equal round and reactive to light, extra-ocular motions intact. Lids and gs lashes normal. Conjunctiva and sclera are non-icteric and not injected. Cornea within normal limits. Periorbital areas with no swelling, redness, or edema. ENT: Nares patent. No nasal discharge, no septal abnormalities noted. Tympanic membranes are normal and external auditory canals are clear. Oropharynx with no redness, swelling, or masses, exudates, or evidence of obstruction, uvula midline. Mucous membranes moist. Neck: Trachea midline, no thyromegaly or masses palpated, and no cervical lymphadenopathy. Supple, full range of motion without nuchal rigidity, or vertebral point tenderness. No Meningismus. Chest/axilla: Normal chest wall appearance and motion. Nontender with no deformity. No lesions are appreciated. Cardiovascular: Regular rate and rhythm with a normal S1 and S2. No gallops, murmurs, or rubs. Normal PMI, no JVD. No pulse deficits. Respiratory: Lungs have equal breath sounds bilaterally, clear to auscultation and percussion. No rales, rhonchi or wheezes noted. No increased work of breathing, no retractions or nasal flaring. Abdomen/GI: Soft, non-tender, with normal bowel sounds. No distension or tympany. No guarding or rebound. No evidence of tenderness throughout. Back: No spinal tenderness. No costovertebral tenderness. Full range of motion. Skin: Warm, dry with normal turgor. Normal color with no rashes, no lesions, and no evidence of cellulitis. MS/ Extremity: Pulses equal, no cyanosis. Neurovascular intact. Full, normal range of motion. Neuro: Awake and alert, GCS 15, oriented to person, place, time, and situation. Cranial nerves II-XII grossly intact. Motor strength 5/5 in all extremities. Sensory grossly intact. Cerebellar exam normal. Normal gait. 21:26 Constitutional: The patient appears alert, awake. 21:26 Head/face: Noted is contusion, that is superficial, of the right occipital area. 21:26 ECG was reviewed by the Attending Physician. Vital Signs: 20:55 BP 148 / 58; Pulse 83; Resp 17; Temp 98.2; Pulse Ox 99% on R/A; rv 22:52 BP 149 / 67; Pulse 83; Resp 18; Pulse Ox 99% on R/A; rv 23:43 BP 157 / 73; Pulse 84; Resp 18; Pulse Ox 99% on R/A; rv [place] Coma Score: 21:26 Eye Response: spontaneous(4). Verbal Response: oriented(5). Motor Response: obeys commands(6). Total: 15. MDM: 20:51 Patient medically screened. 21:26 Differential diagnosis: Hematoma on Intracranial bleed- Concussion. Data reviewed: vital signs, nurses notes. Counseling: I had a detailed discussion with the patient and/or guardian regarding: the historical points, exam findings, and any diagnostic results supporting the discharge/admit diagnosis, radiology results. 21:26 ED course: pt is in no distress only complains of bump on head. 08/17 20:54 Order name: CT Head C Spine; Complete Time: 21:26 08/17 20:54 Order name: EKG; Complete Time: 20:55 08/17 20:54 Order name: EKG - Nurse/Tech; Complete Time: 22:55 EC:26 Rate is 84 beats/min. Rhythm is regular. QRS [place] is Normal. TN interval is normal. T gs waves are Flattened. Clinical impression: NSR w/ Non-specific ST/T Changes. Interpreted by me. Administered Medications: No medications were administered Disposition: 08/17/18 21:31 Discharged to Home. Impression: Contusion of other part of head. - Condition is Stable. - Discharge Instructions: Head Injury, Adult. - Medication Reconciliation Form, Thank You Letter, Antibiotic Education, Prescription Opioid Use form. - Follow up: Private Physician; When: 2 - 3 days; Reason: Re-evaluation by your physician. Signatures: Dispatcher [employer] EDMS Prabhu Hunter MD MD Stephen Mora RN RN rv Corrections: (The following items were deleted from the chart) 23:45 21:31 08/17/2018 21:31 Discharged to Home. Impression: Contusion of other part of head. rv Condition is Stable. Forms are Medication Reconciliation Form, Thank You Letter, Antibiotic Education, Prescription Opioid Use. Follow up: Private Physician; When: 2 - 3 days; Reason: Re-evaluation by your physician. gs
[2018-08-18 01:59] VITALS: TEMP 98.2; O2SAT 99
[2018-08-18 02:01] VITALS: BP 157/73
--- NOTE | 2018-08-18 10:09 | EKG ---
Test Date: 2018-08-17 Test Time: 21:20:21 Cargo Supervisor: MEASUREMENT RESULTS: Intervals: Rate: 84 MI: 164 QRSD: 84 QT: 394 QTc: 465 [place]: P: 78 MI: 164 QRS: 49 T: 84 INTERPRETIVE STATEMENTS: Normal sinus rhythm Possible Left atrial enlargement Left ventricular hypertrophy with repolarization abnormality Abnormal ECG Compared to ECG 08/01/2018 11:49:53 Early repolarization now present Ventricular premature complex(es) no longer present T-wave abnormality no longer present Electronically Signed On 08-18-18 10:09:01 CHAINSTITCH SEWING MACHINE OPERATOR by Gilbert Stokes
== END 2018-08-17 23:45 | disposition home or self-care (01) ==
LOC: ER 20:35
DX: S00.83XA Contusion of other part of head, initial encounter (principal); W18.39XA Other fall on same level, initial encounter; Y92.009 Unspecified place in unspecified non-institutional (private) residence as the place of occurrence of the external cause; I51.7 Cardiomegaly; R94.31 Abnormal electrocardiogram [ECG] [EKG]; E03.9 Hypothyroidism, unspecified; G20 Parkinson's disease; I10 Essential (primary) hypertension; F32.9 Major depressive disorder, single episode, unspecified; F41.9 Anxiety disorder, unspecified; Z79.82 Long term (current) use of aspirin; Z79.1 Long term (current) use of non-steroidal anti-inflammatories (NSAID); Z79.899 Other long term (current) drug therapy
CPT/HCPCS: 70450; 72125; 93005; 99284

== ENCOUNTER 2018-08-30 20:43 | Inpatient (IN) | payer OTHER ==
--- NOTE | 2018-08-30 21:18 | RAD REPORT ---
EXAM DESCRIPTION: CT - [id number] - 08/30/2018 9:05 pm CLINICAL HISTORY: Fall, head neck injury COMPARISON: CT head and cervical August 17 TECHNIQUE: Axial 5 mm thick images of the head were obtained. Axial 2 mm thick images of the cervic al spine were obtained with sagittal and coronal reconstruction images generated and reviewed. All CT scans are performed using dose optimization technique as appropriate and may include automated exposure control or mA/KV adjustment according to patient size. FINDINGS: No intracranial hemorrhage, mass, edema or acute intracranial finding. No suspicion for ac [place] infarction. Atrophy chronic ischemic change match prior study. Mastoid air cells and paranasal si nuses are clear. No globe or orbit abnormality seen. Cervical body height and alignment are normal. C4-5 and C6-7 disc space narrowing again noted. Bony f oraminal encroachment changes are present at these levels as well as on the left at C5-6. No fracture or acute bony abnormality. No paraspinal mass or hematoma. Patient does have a large fluid bolus in the upper most cervical esophagus with a small amount of homer d material along the posterior lower pharynx near the valleculae and pyriform sinuses. This is in natasha se proximity to the airway and considered aspiration risk. IMPRESSION: No hemorrhage or acute intracranial finding. No changes since August 17. Stable cervical spine degenerative change. No acute finding. Large fluid bolus is present in the upper most cervical esophagus with food along the posterior phary ngeal wall at the valleculae and pyriform sinuses. This is an aspiration risk.
[2018-08-30 21:58] LABS: Absolute Lymphocytes (CBC) 0.8 K/uL (0.7-4.9); Absolute Monocytes 0.5 K/uL (0.1-1.3); Basophils % 0.5 % (0-1.3); Eosinophils % 3.9 % (0-4.4); Hematocrit 30.2 % (36.0-45.0); Lymphocytes % 11.6 % (15.3-44.8); MCH 29.1 pg (27.0-35.0); MCV 88.9 fL (80-100); Monocytes % 7.9 % (3.3-12.3); RBC Red Blood Cell Count 3.39 M/uL (3.86-4.86)
[2018-08-30 21:59] LABS: Protime INR 1.08
[2018-08-30 22:08] LABS: Potassium 4.2 mmol/L (3.5-5.1)
--- NOTE | 2018-08-30 22:08 | RAD REPORT ---
EXAM DESCRIPTION: RAD - Hip Left 2 View - 08/30/2018 9:41 pm CLINICAL HISTORY: Fall, hip pain COMPARISON: None. FINDINGS: AP and cross-table lateral views were obtained. Comminuted intertrochanteric fracture is p resent. Fracture extends into the lesser tuberosity. Pathologic etiology is not suspected. Lateral ma rgin of the fracture is at the neck greater trochanteric junction. No dislocation of the femoral head . No focal femoral head abnormality. No significant soft tissue mass or hematoma seen. IMPRESSION: Left femur intertrochanteric fracture as detailed.
--- NOTE | 2018-08-30 22:09 | RAD REPORT ---
EXAM DESCRIPTION: RAD - Chest Single View - 08/30/2018 9:41 pm CLINICAL HISTORY: Preop chest, hip fracture COMPARISON: August 01 TECHNIQUE: AP portable chest image was obtained 2109 hours . FINDINGS: Prominent interstitial pattern matches prior imaging. No focal infiltrate, mass or failure . Heart and vasculature are normal. No measurable pleural effusion and no pneumothorax. No acute bony abnormality seen. No acute aortic findings suspected. IMPRESSION: Chronic interstitial lung disease similar to comparison. No acute findings seen.
--- NOTE | 2018-08-30 22:11 | ER ---
Nurse's Notes [facility] Name: Shanon Han Age: 87 yrs Sex: Female : 1930 Arrival Date: 08/30/2018 Time: 20:47 Bed 3 Private MD: Diagnosis: Displaced intertrochanteric fracture of left femur Presentation: 08/30 20:56 Presenting complaint: EMS states: Pt reports falling from standing, fell backwards and tl2 landed on left hip. Did not hit head, denies LOC. Shortening and rotation of left leg noted. Pt denies pain at this time. Transition of care: patient was received from another setting of care (long-term care [facility]. Onset of symptoms was August 30, 2018 at 20:00. Risk Assessment: Do you want to hurt yourself or someone else? Patient reports no desire to harm self or others. Initial Sepsis Screen: Does the patient meet any 2 criteria? No. Patient's initial sepsis screen is negative. Does the patient have a suspected source of infection? No. Patient's initial sepsis screen is negative. Care prior to arrival: Placed on backboard. 20:56 Method Of Arrival: EMS: [facility] tl2 20:56 Acuity: HEMANT 3 tl2 20:56 Care prior to arrival: Glucose check: 111. tl2 Triage Assessment: 21:02 General: Appears in no apparent distress. comfortable, Behavior is calm, cooperative, tl2 appropriate for age. Pain: Denies pain. Neuro: Level of Consciousness is awake, alert, obeys commands, Oriented to person, place, time, situation. Cardiovascular: Denies chest pain. Respiratory: Airway is patent Respiratory effort is even, unlabored, Respiratory pattern is regular, symmetrical. GI: No signs and/or symptoms were reported involving the gastrointestinal system. : No signs and/or symptoms were reported regarding the genitourinary system. Derm: Skin is pink, warm \T\ dry. Musculoskeletal: Circulation, motion, and sensation intact. Range of motion: limited in left hip shortening and rotation of left leg noted. Historical: - Allergies: 21:02 No Known Allergies; tl2 - Home Meds: 21:02 acetaminophen 500 mg Oral tab 2 tabs every 6 hours [Active]; aspirin 81 mg Oral TbEC 1 tl2 tab once daily [Active]; bumetanide 0.5 mg Oral tab 1 tab once daily [Active]; carbidopa-levodopa 25-250 mg Oral tab 1 tab 4 times per day [Active]; cetirizine 10 mg oral tab 1 tab once daily [Active]; Durezol 0.05 % ophthalmic drop 1 drop ONCE WEEKLY [Active]; levothyroxine 150 mcg tab 1 tab once daily [Active]; losartan 100 mg Oral tab 1 tab once daily [Active]; meloxicam 7.5 mg Oral tab 1 tab once daily [Active]; midodrine 2.5 mg Oral tab 1 tab BID [Active]; paroxetine HCl 20 mg Oral tab 1.5 tab once daily [Active]; Restasis 0.05 % ophthalmic dpet 1 drop 2 times per day [Active]; rivastigmine 9.5 mg/24 hr transdermal pt24 [Active]; venlafaxine 37.5 mg Oral tab 1 tab 3 times per day [Active]; topiramate 25 mg oral CSpX 1 cap once daily [Active]; - PMHx: 21:02 Anxiety; Depression; Hypertension; Hypothyroidism; Parkinsons; tl2 - Immunization history:: Adult Immunizations up to date. - Social history:: Smoking status: Patient/guardian denies using tobacco. - Ebola Screening: : No symptoms or risks identified at this time. Screenin:04 Abuse screen: Denies threats or abuse. Nutritional screening: No deficits noted. tl2 Tuberculosis screening: No symptoms or risk factors identified. Fall Risk Fall in past 12 months (25 points). Gait- Impaired (20 pts.). Assessment: 21:02 General: see triage assessment. tl2 21:56 Reassessment: Patient appears in no apparent distress at this time. Patient and/or tl2 family updated on plan of care and expected duration. Pain level reassessed. Patient is alert, oriented x 3, equal unlabored respirations, skin warm/dry/pink. Pt resting comfortably. Pt denied pain medication at this time. MD at bedside discussing plan of care. 23:10 Reassessment: Patient appears in no apparent distress at this time. Patient and/or tl2 family updated on plan of care and expected duration. Pain level reassessed. Inserted patrick per hospitalist orders, See charting in [facility]. 08/31 00:12 Reassessment: Pt stable and ready for transport to floor. tl2 Vital Signs: 08/30 21:02 BP 155 / 72; Pulse 88; Resp 18; Temp 98.8(O); Pulse Ox 98% on R/A; Weight 81.65 kg; tl2 Height 5 ft. 4 in. (162.56 cm); Pain 0/10; 21:56 BP 154 / 60; Pulse 87; Resp 13; Pulse Ox 96% on R/A; tl2 22:37 BP 161 / 69; Pulse 88; Resp 11; Pulse Ox 90% on R/A; tl2 08/31 00:12 BP 133 / 67; Pulse 87; Resp 18; Pulse Ox 95% on R/A; tl2 08/30 21:02 Body Mass Index 30.90 (81.65 kg, 162.56 cm) tl2 ED Course: 08/30 20:47 Patient arrived in ED. em1 20:47 Prabhu Hunter MD is Attending Physician. gs 20:58 Triage completed. tl2 21:02 Arm band placed on right wrist. tl2 21:04 Patient has correct armband on for positive identification. Bed in low position. Call tl2 light in reach. Side rails up X2. Adult w/ patient. 21:07 CT Head C Spine In Process Unspecified. EDMS 21:41 XRAY Chest (1 view) In Process Unspecified. EDMS 21:41 Hip Left 2 View XRAY In Process Unspecified. EDMS 22:09 Flavio Ventura MD is Hospitalizing Provider. gs 23:12 No provider procedures requiring assistance completed. Patient admitted, IV remains in tl2 place. 08/31 00:11 Vernell Ortiz RN is Primary Nurse. tl2 Administered Medications: 08/30 22:32 Drug: fentaNYL (PF) 50 mcg Route: IVP; Site: left antecubital; tl2 23:00 Follow up: Response: No adverse reaction; Pain is decreased tl2 Outcome: 22:10 Decision to Hospitalize by Provider. gs 23:12 Admitted to Med/surg accompanied by tech, family with patient, via stretcher, room 201, tl2 with chart, Report called to SAÚL Godinez 23:12 Condition: stable 23:12 Discharge instructions given to family, Instructed on the need for admit. 08/31 00:14 Patient left the ED. tl2 Signatures: Dispatcher [employer] Praveen Morrison em1 Vernell Ortiz, RN RN tl2 Prabhu Hunter MD MD gs
--- NOTE | 2018-08-30 22:11 | EDPHYS ---
Physician Documentation [facility] Name: Shanon Han Age: 87 yrs Sex: Female : 1930 Arrival Date: 08/30/2018 Time: 20:47 Bed 3 Private MD: ED Physician Prabhu Hunter HPI: 08/30 21:56 This 87 yrs old Female presents to ER via EMS with complaints of Hip Injury. gs 21:56 The patient or guardian reports an injury, pain. that occurred at home, sustained from gs a fall, the left lower extremity is shortened, left leg is externally rotated, The patient is not able to ambulate. Patient is not able to bear weight. The complaints affect the left hip. Onset: The symptoms/episode began/occurred acutely, just prior to arrival. Modifying factors: The symptoms are alleviated by nothing, the symptoms are aggravated by any movement. Associated signs and symptoms: Pertinent negatives: incontinence. Severity of symptoms: At their worst the symptoms were severe, in the emergency department the symptoms are unchanged. The patient has not experienced similar symptoms in the past. The patient has not recently seen a physician. Historical: - Allergies: 21:02 No Known Allergies; tl2 - Home Meds: 21:02 acetaminophen 500 mg Oral tab 2 tabs every 6 hours [Active]; aspirin 81 mg Oral TbEC 1 tl2 tab once daily [Active]; bumetanide 0.5 mg Oral tab 1 tab once daily [Active]; carbidopa-levodopa 25-250 mg Oral tab 1 tab 4 times per day [Active]; cetirizine 10 mg oral tab 1 tab once daily [Active]; Durezol 0.05 % ophthalmic drop 1 drop ONCE WEEKLY [Active]; levothyroxine 150 mcg tab 1 tab once daily [Active]; losartan 100 mg Oral tab 1 tab once daily [Active]; meloxicam 7.5 mg Oral tab 1 tab once daily [Active]; midodrine 2.5 mg Oral tab 1 tab BID [Active]; paroxetine HCl 20 mg Oral tab 1.5 tab once daily [Active]; Restasis 0.05 % ophthalmic dpet 1 drop 2 times per day [Active]; rivastigmine 9.5 mg/24 hr transdermal pt24 [Active]; venlafaxine 37.5 mg Oral tab 1 tab 3 times per day [Active]; topiramate 25 mg oral CSpX 1 cap once daily [Active]; - PMHx: 21:02 Anxiety; Depression; Hypertension; Hypothyroidism; Parkinsons; tl2 - Immunization history:: Adult Immunizations up to date. - Social history:: Smoking status: Patient/guardian denies using tobacco. - Ebola Screening: : No symptoms or risks identified at this time. ROS: 21:56 All other systems are negative. gs Exam: 21:56 Head/Face: Normocephalic, atraumatic. Eyes: Pupils equal round and reactive to light, gs extra-ocular motions intact. Lids and lashes normal. Conjunctiva and sclera are non-icteric and not injected. Cornea within normal limits. Periorbital areas with no swelling, redness, or edema. ENT: Nares patent. No nasal discharge, no septal abnormalities noted. Tympanic membranes are normal and external auditory canals are clear. Oropharynx with no redness, swelling, or masses, exudates, or evidence of obstruction, uvula midline. Mucous membranes moist. Neck: Trachea midline, no thyromegaly or masses palpated, and no cervical lymphadenopathy. Supple, full range of motion without nuchal rigidity, or vertebral point tenderness. No Meningismus. Chest/axilla: Normal chest wall appearance and motion. Nontender with no deformity. No lesions are appreciated. Cardiovascular: Regular rate and rhythm with a normal S1 and S2. No gallops, murmurs, or rubs. Normal PMI, no JVD. No pulse deficits. Respiratory: Lungs have equal breath sounds bilaterally, clear to auscultation and percussion. No rales, rhonchi or wheezes noted. No increased work of breathing, no retractions or nasal flaring. Abdomen/GI: Soft, non-tender, with normal bowel sounds. No distension or tympany. No guarding or rebound. No evidence of tenderness throughout. Back: No spinal tenderness. No costovertebral tenderness. Full range of motion. Skin: Warm, dry with normal turgor. Normal color with no rashes, no lesions, and no evidence of cellulitis. 21:56 Constitutional: The patient appears alert, awake. 21:56 Musculoskeletal/extremity: Circulation is intact in all extremities. Joints: the left hip displays deformity, limited range of motion, pain at rest, painful range of motion, tenderness. 21:56 Neuro: Exam negative for acute changes. Vital Signs: 21:02 BP 155 / 72; Pulse 88; Resp 18; Temp 98.8(O); Pulse Ox 98% on R/A; Weight 81.65 kg; tl2 Height 5 ft. 4 in. (162.56 cm); Pain 0/10; 21:56 BP 154 / 60; Pulse 87; Resp 13; Pulse Ox 96% on R/A; tl2 22:37 BP 161 / 69; Pulse 88; Resp 11; Pulse Ox 90% on R/A; tl2 08/31 00:12 BP 133 / 67; Pulse 87; Resp 18; Pulse Ox 95% on R/A; tl2 08/30 21:02 Body Mass Index 30.90 (81.65 kg, 162.56 cm) tl2 MDM: 08/30 20:47 Patient medically screened. 21:56 Differential diagnosis: hip fracture, intertrochanteric fracture, femoral neck gs fracture, femoral shaft fracture. Differential diagnosis: head c spine injury. Data reviewed: vital signs, nurses notes. Counseling: I had a detailed discussion with the patient and/or guardian regarding: the historical points, exam findings, and any diagnostic results supporting the discharge/admit diagnosis, the need for further work-up and treatment in the hospital. Response to treatment: the patient's symptoms have mildly improved after treatment, and as a result, I will admit patient. 08/30 20:49 Order name: Basic Metabolic Panel; Complete Time: 22:12 08/30 20:49 Order name: CBC with Diff; Complete Time: 22:12 08/30 20:49 Order name: PT-INR; Complete Time: 22:12 08/30 20:49 Order name: XRAY Chest (1 view); Complete Time: 22:12 08/30 21:40 Order name: Type And Screen; Complete Time: 22:27 tl2 08/30 22:22 Order name: ABO/RH no charge; Complete Time: 22:27 EDMS 08/30 20:49 Order name: EKG; Complete Time: 20:49 08/30 20:49 Order name: Cardiac monitoring; Complete Time: 21:54 08/30 20:49 Order name: EKG - Nurse/Tech; Complete Time: 21:54 08/30 20:49 Order name: IV Saline Lock; Complete Time: 21:54 08/30 20:49 Order name: CT Head C Spine; Complete Time: 22:12 08/30 20:49 Order name: Hip Left 2 View XRAY; Complete Time: 22:12 08/30 23:41 Order name: CONS Physician Consult [facility] 08/30 20:49 Order name: Labs collected and sent; Complete Time: 21:54 08/30 20:49 Order name: O2 Per Protocol; Complete Time: 21:54 08/30 20:49 Order name: O2 Sat Monitoring; Complete Time: 21:54 Administered Medications: 22:32 Drug: fentaNYL (PF) 50 mcg Route: IVP; Site: left antecubital; tl2 23:00 Follow up: Response: No adverse reaction; Pain is decreased tl2 Disposition: 08/30/18 22:10 Hospitalization ordered by Flavio Ventura for Inpatient Admission. Preliminary diagnosis is Displaced intertrochanteric fracture of left femur. - Bed requested for Telemetry/MedSurg (Inpatient). - Status is Inpatient Admission. tl2 - Condition is Stable. - Problem is new. - Symptoms are unchanged. UTI on Admission? No Signatures: Dispatcher [employer] EDTN Praveen Goldberg em1 Debbie Alston RN RN cg Vernell Ortiz RN RN tl2 Prabhu Hunter MD MD Corrections: (The following items were deleted from the chart) 22:25 22:10 Hospitalization Ordered by Flavio Ventura MD for Inpatient Admission. Preliminary cg diagnosis is Displaced intertrochanteric fracture of left femur. Bed requested for Telemetry/MedSurg (Inpatient). Status is Inpatient Admission. Condition is Stable. Problem is new. Symptoms are unchanged. UTI on Admission? No. gs 23:18 22:25 08/30/2018 22:10 Hospitalization Ordered by Flavio Ventura MD for Inpatient em1 Admission. Preliminary diagnosis is Displaced intertrochanteric fracture of left femur. Bed requested for Telemetry/MedSurg (Inpatient). Status is Inpatient Admission. Condition is Stable. Problem is new. Symptoms are unchanged. UTI on Admission? No. cg 08/31 00:14 08/30 23:18 08/30/2018 22:10 Hospitalization Ordered by Flavio Ventura MD for Inpatient tl2 Admission. Preliminary diagnosis is Displaced intertrochanteric fracture of left femur. Bed requested for Telemetry/MedSurg (Inpatient). Status is Inpatient Admission. Condition is Stable. Problem is new. Symptoms are unchanged. UTI on Admission? No. em1
--- NOTE | 2018-08-30 22:30 | P.HP ---
Certification for Inpatient Patient admitted to: Inpatient With expected LOS: >2 Midnights Practitioner: I am a practitioner with admitting privileges, knowledge of patient current condition, hospital course, and medical plan of care. Services: Services provided to patient in accordance with Admission requirements found in Title 42 Section 412.3 of the Code of Federal Regulations Patient History Date of Service: 08/30/18 Reason for admission: hip fracture History of Present Illness: Ms Han is an 87 yeas old woman with history of Parkinson's disease, ambulatory with a walker, Anxiety, depression, Dementia, who lives in an assisted living facility. Today while she was walking, fell to the floor, landing over her left side. Immediately she was complaining of left hip pain, and was not able to bear weight on her left leg. The patient does not know how she fell. There is no obvious head injury, CT head/cervical neck showed no acute abnormalities. Left hip XR consistent with a comminuted intertrochanteric femoral fracture. Allergies No Known Allergies Allergy (Verified 07/11/15 22:28) Home medications list reviewed: Yes Home Medications: Acetaminophen [Pain Relief] 1 tab PO PRN PRN 07/11/15 Bumetanide 0.5 tab PO DAILY 07/11/15 Carbidopa/Levodopa [Carbidopa-Levodopa 25-100 Tab] 1 tab PO TID 07/11/15 Fludrocortisone [Florinef *] 1 tab PO M,W,F 07/11/15 Levothyroxine Sodium 1 tab PO DAILY 07/11/15 Losartan Potassium 1 tab PO DAILY 07/11/15 Meloxicam 1 tab PO DAILY 07/11/15 Multivitamin [Daily Multiple Vitamin] 1 tab PO DAILY 07/11/15 Paroxetine HCl 1.5 tab PO DAILY 07/11/15 Difluprednate [Durezol] 1 drop LEFT EYE EVERY 7TH DAY 07/15/15 Aspirin Chewable [Aspirin Chewable*] 81 mg PO DAILY #30 tab.chew 07/24/15 - Past Medical/Surgical History Diabetic: No -: HTN -: PARKINSONS -: ORTHOSTATIC HYPOTENSION -: DEPRESSION -: HYPOTHYROIDISM -: PERIPHERAL EDEMA -: PARKINSON'S DISEASE - Family History Father -: Other (see notes) Notes: dementia Mother -: Hypertension, Cancer Notes: breast cancer Brother -: Heart disease Notes: heart attact Sister -: Cancer Notes: kidney cancer - Social History Alcohol use: No CD- Drugs: No Caffeine use: Yes Place of Residence: [facility] Review of Systems 10-point ROS is otherwise unremarkable Physical Examination - Physical Exam General: Alert, In no apparent distress, Confused HEENT: Atraumatic, PERRLA, Mucous membr. moist/pink, EOMI, Sclerae nonicteric Neck: Supple, 2+ carotid pulse no bruit, No LAD, Without JVD or thyroid abnormality Respiratory: Clear to auscultation bilaterally, Normal air movement Cardiovascular: Normal S1 S2, No gallops Gastrointestinal: Normal bowel sounds, No tenderness Musculoskeletal: Tenderness (left hip) Integumentary: No rashes Neurological: Normal speech, Normal tone, Normal affect Lymphatics: No axilla or inguinal lymphadenopathy - Studies Laboratory Data (last 24 hrs) 08/30/18 21:40: PT 12.7 H, INR 1.08 08/30/18 21:40: WBC 6.6, Hgb 9.9 L, Hct 30.2 L, Plt Count 267 08/30/18 21:40: Sodium 139, Potassium 4.2, BUN 32 H, Creatinine 1.10, Glucose 122 H Assessment and Plan - Problems (Diagnosis) (1) Hip fracture Current Visit: Yes Status: Acute Qualifiers: Encounter type: initial encounter Fracture type: closed Laterality: left Qualified Code(s): S72.002A - Fracture of unspecified part of neck of left femur, initial encounter for closed fracture (2) Hypertension Onset Date: 07/17/15 Current Visit: No Status: Acute Qualifiers: Hypertension type: essential hypertension Qualified Code(s): I10 - Essential (primary) hypertension (3) Hypothyroidism Onset Date: 07/17/15 Current Visit: No Status: Acute Qualifiers: Hypothyroidism type: unspecified Qualified Code(s): E03.9 - Hypothyroidism , unspecified (4) Parkinsons Onset Date: 07/12/15 Current Visit: No Status: Acute - Plan The patient will be admitted to the hospital due to left hip fracture. Will order symptomatic medication. Keep her NPO for potential ORIF in the morning if family is agree. Will consult Dr Agarwal for evaluation and recommendations. - Advance Directives Does patient have a Living Will: Yes Does patient have a Durable POA for Healthcare: Yes - Code Status/Comfort Care Code Status Assessed: Yes Code Status: Full Code
[2018-08-30] MEDS ORDERED: FENTANYL CITR 100 MCG/2 ML ONE (22:37)
[2018-08-31] MEDS ORDERED: ONDANSETRON 4 MG/2 ML VIAL IV PRN (00:17)
[2018-08-31] MEDS ORDERED: ACETAMINOPHEN 500 MG TAB PO PRN (00:17)
[2018-08-31] MEDS: NA CHLORIDE 0.9% 1,000 ML IV SCH ×5 (00:43→18:29)
[2018-08-31 00:46] VITALS: BMI 27.6
[2018-08-31 01:52] LABS: Urine Appearance CLEAR; Urine Bilirubin NEGATIVE (NEG); Urine Blood NEGATIVE (NEG); Urine Color YELLOW; Urine Glucose NEGATIVE (NEG); Urine Protein NEGATIVE (NEG); Urine Specific Gravity 1.015 (1.005-1.030); Urine Urobilinogen 0.2 mg/dL (0.2-1.0)
[2018-08-31 01:56] LABS: Urine Microscopic Reflex ORDER UMIC
[2018-08-31 02:09] LABS: Urine Bacteria <20 /HPF (<20); Urine Culture Reflex Order REFLEXED; Urine RBC NONE SEEN /HPF (NONE SEEN)
[2018-08-31 05:58] LABS: Absolute Lymphocytes (CBC) 0.5 K/uL (0.7-4.9); Absolute Monocytes 0.6 K/uL (0.1-1.3); Absolute Neutrophil 8.6 K/uL (1.8-8.0); Basophils % 0.3 % (0-1.3); Eosinophils % 1.6 % (0-4.4); Hematocrit 27.9 % (36.0-45.0); Lymphocytes % 4.6 % (15.3-44.8); MCH 29.5 pg (27.0-35.0); MCV 87.3 fL (80-100); MPV 7.9 fL (7.6-11.3); Monocytes % 5.8 % (3.3-12.3); RBC Red Blood Cell Count 3.19 M/uL (3.86-4.86)
[2018-08-31 06:19] LABS: Magnesium 2.3 mg/dL (1.8-2.4); Potassium 3.8 mmol/L (3.5-5.1)
[2018-08-31] MEDS ORDERED: KCL 20 MEQ/100 mL IVPB 20 MEQ/100 ML BAG IV SCH (07:00)
[2018-08-31] MEDS ORDERED: SODIUM CHLORIDE 0.9% 10ML INJ IV PRN (07:51)
[2018-08-31] MEDS ORDERED: HYDRALAZINE HCL 20 MG/ML VIAL IV PRN (07:51)
[2018-08-31 08:49] LABS: Urine White Blood Cell Casts DIFF
[2018-08-31 08:50] LABS: Blood Morphology Comment NOT SEEN (NOT SEEN); Platelet Estimate ADEQ; Toxic Granulation 2+
[2018-08-31 08:58] LABS: Ferritin 12.4 ng/mL (8-388)
[2018-08-31] MEDS: VENLAFAXINE HCL XR 75 MG CAP PO SCH (09:00)
[2018-08-31] MEDS: CARBIDOPA/LEVODOPA 25/250 TAB PO SCH ×4 (09:00→21:00)
[2018-08-31] MEDS ORDERED: CEFTRIAXONE 1 GM/NS 50 ML 1 GM/50 ML BAG IV SCH (09:00)
[2018-08-31] MEDS: BUMETANIDE 1 MG TABLET PO SCH (09:00)
[2018-08-31] MEDS: PARoxetine HCl 10 MG TAB PO SCH (09:00)
[2018-08-31] MEDS: HOME MED 1 EA UNK (Cyclosporine [Restasis] 1 DROP) EACH EYE SCH ×2 (09:00→21:00)
[2018-08-31] MEDS: ASPIRIN 81 MG CHEWABLE TABLET PO SCH (09:00)
[2018-08-31] MEDS ORDERED: CEFTRIAXONE/SWI 1gm 1 GM/10 ML SYR IV SCH (09:00)
[2018-08-31] MEDS ORDERED: DIFLUPREDNATE OPHTHALMIC 5 ML BOT LEFT EYE SCH (09:00)
[2018-08-31] MEDS: PANTOPRAZOLE 40 MG INJ IVP SCH (09:22)
[2018-08-31] MEDS: RIVASTIGMINE 9.5 MG/24 HR PATCH TD SCH (09:22)
--- NOTE | 2018-08-31 12:11 | EKG ---
Test Date: 2018-08-30 Test Time: 21:49:34 [place]: SULY MEASUREMENT RESULTS: Intervals: Rate: 89 FL: 164 QRSD: 80 QT: 354 QTc: 430 [place]: P: 66 FL: 164 QRS: 22 T: 47 INTERPRETIVE STATEMENTS: Normal sinus rhythm Possible Left atrial enlargement Nonspecific T wave abnormality Abnormal ECG Compared to ECG 08/17/2018 21:20:21 T-wave abnormality now present Left ventricular hypertrophy no longer present Early repolarization no longer present Electronically Signed On 08-31-18 12:09:10 [employer] by Mohit Sue
[2018-08-31] MEDS ORDERED: TRANEXAMIC ACID 1,000 MG in NA CHLORIDE 0.9% 50 ML IV ONE (13:00)
[2018-08-31] MEDS ORDERED: CEFAZOLIN/SWI 1gm 1 GM/10 ML SYR ONE (13:03)
[2018-08-31] MEDS ORDERED: FENTANYL CITR 100 MCG/2 ML ONE (13:05)
[2018-08-31] MEDS ORDERED: LIDOCAINE 2% MPF 5 ML VIAL ONE (13:05)
[2018-08-31] MEDS ORDERED: PROPOFOL 200 MG/20 ML VIAL IV ONE (13:05)
[2018-08-31] MEDS: BUPIVACA 0.5%/EPI 0.0005%/PF 30 ML VIAL ONE ×2 (13:51→14:40)
--- NOTE | 2018-08-31 15:05 | P.PN ---
Subjective Date of Service: 08/31/18 Primary Care Provider: Dr. Guidry; Cardiology-Dr. Russell; Neurology-Dr. Lim Chief Complaint: hip fracture Subjective: Other (Patient doing well this time. Pain controlled.) Physical Examination - Vital Signs Temperature: 98.7 F Blood Pressure: 143/75 Pulse: 93 Respirations: 18 Pulse Ox (%): 91 - Physical Exam General: Alert, In no apparent distress, Cooperative, Demented (Patient appropriate dementia mild) HEENT: Atraumatic Neck: Supple Respiratory: Clear to auscultation bilaterally, Normal air movement Cardiovascular: Normal pulses, Regular rate/rhythm Gastrointestinal: Normal bowel sounds, Soft and benign, Non-distended Musculoskeletal: No erythema, No tenderness, No warmth Integumentary: No tenderness/swelling, No erythema, No warmth, No cyanosis Neurological: Normal speech, Normal strength at 5/5 x4 extr, Normal tone, Normal affect - Studies Laboratory Data (last 24 hrs) 08/30/18 21:40: PT 12.7 H, INR 1.08 08/30/18 21:40: WBC 6.6, Hgb 9.9 L, Hct 30.2 L, Plt Count 267 08/30/18 21:40: Sodium 139, Potassium 4.2, BUN 32 H, Creatinine 1.10, Glucose 122 H Medications List Reviewed: Yes Assessment & Plan Discharge Plan: Other (Skilled facility) Plan to discharge in: 72 Hours - Code Status/Comfort Care Code Status Assessed: Yes (Patient full code) Physician Review Additional Text: Impression: Fall leading to left intertrochanteric femur fracture Parkinson's with mild dementia Hypothyroidism Hypertension Depression Dysphagia GERD Anemia likely of chronic disease and malnutrition Acute renal insufficiency likely from dehydration Plan: Fall leading to left intertrochanteric femur fracture: Patient low risk for surgery. Case discussed with orthopedics. Patient is to be taken to the OR today for repair. Patient likely a candidate for skilled placement due to her Parkinson's with dementia. Will start DVT prophylaxis tomorrow. Will reassess tomorrow. Parkinson's with mild dementia: Will restart her medication. Will consult her neurologist to monitor her care. Patient with recent dysphagia. Will have modified barium swallow and speech evaluation done for the patient while in the hospital. Aspiration precaution in place.. Hypothyroidism: Will continue with her medication. Hypertension: Will review home medication. Will provide IV medication at this time since the patient is NPO in preparation for surgery. Depression: Will review and restart home medication. Dysphagia: Patient has had increase dysphagia with poor intake. Will have speech evaluate patient. Patient will likely require modified barium swallow to further assess. Aspiration precaution in place. If significantly abnormal patient may require PEG tube. Case discussed at length with patient and family. GERD: Will continue the PPI. Anemia likely of chronic disease and malnutrition: Will check iron and B12 studies. Patient with recent dysphagia likely affecting her anemia. Acute renal sufficiency likely from dehydration: Will continue with IV for Time Spent Managing Pts Care (In Minutes): 55
--- NOTE | 2018-08-31 15:14 | P.BOP ---
Preoperative diagnosis: LEFT INTERTROCH.PROX.FEMUR FRACTURE Postoperative diagnosis: LEFT INTERTROCH.PROX.FEMUR FRACTURE Primary procedure: IM NAIL FIXATION LEFT INTERTROCH.PROX.FEMUR FRACTURE Management Supervisor: Sundar Agarwal Estimated blood loss: 150 mL Specimen: NONE Anesthesia: General Complications: None Implants: AFFIXUS HIP NAIL 125*[id number];[id number];AR [id number]; [id number] Fluids & blood products: INJ 30 mL 0.25%MARCAINE IN INCISIONS Transferred to: Recovery Room Condition: Good
[2018-08-31] MEDS ORDERED: HYDROCODONE/APAP 7.5/325 MG TAB PO PRN (15:34)
[2018-08-31 15:47] LABS: Hematocrit 30.1 % (36.0-45.0)
[2018-08-31] MEDS: ENOXAPARIN 40 MG/0.4 ML SQ SCH (17:00)
[2018-08-31] MEDS: CEFAZOLIN/SWI 1gm 1 GM/10 ML SYR IVP SCH ×2 (18:29→23:36)
[2018-08-31] MEDS: QUETIAPINE 25 MG TAB PO SCH (21:00)
[2018-08-31] MEDS: TOPIRAMATE 25 MG TAB PO SCH (21:00)
--- NOTE | 2018-09-01 00:22 | CON ---
Reason For Consultation: The patient is seen at request of Dr. Flavio Gonzalez, hospitalist, caterina kennedy left hip fracture. History Of Present Illness: Shanon Han is an 87-year-old woman who has advanced Parkinson disea se, anxiety, depression, and dementia, living in an assisted living facility. She has been brought t o the hospital for fall-related injuries 4 times in the last 35 days. Just today, she was brought af ter falling at home with impact on her left lower extremity. She was not able to bear weight on her left leg after the fall. X-ray in the emergency department had shown a comminuted and angulated inte rtrochanteric proximal femoral fracture. Medications: Home medications were reviewed during consultation at 12:15, 08/31/2018. The patient h as been taking aspirin 81 mg tablets daily and meloxicam daily. Other medications related to treatme nts for hypertension, parkinsonism, orthostatic hypotension, depression, hypothyroidism, and peripher al edema. Family History: Noncontributory. Review of Systems: A 10-point review is otherwise unremarkable. Physical Examination: General: This patient was moderately sedated, in no distress. She would venture verbal communicatio n, but was unintelligible. She is in the holding area prior to surgery. HEENT: Atraumatic. Neck: Supple, nontender. Chest: Clear to auscultation. Heart: Has a regular rate and rhythm. Abdomen: Soft and nontender. Active bowel sounds are present. Genital and Rectal: Examinations are deferred. Extremities: On examination of the extremities, the left lower extremity has external rotation and s hortening deformity. Capillary refill is 3 seconds. Imaging Data: X-rays show a comminuted and varus angulation involving an intertrochanteric fracture. She has been cleared for surgery by Dr. Murrieta. Dr. Jorden Mcleod was asked to see the patient [facility] scan of the head, neck, chest, and pelvis revealed a bolus of food and fluid in the upper esoph cee that was considered possibly a risk for aspiration. The hemoglobin of 9.4 was also discussed, a nd Dr. Mcleod felt it was appropriate to go ahead and sleep the patient. After discussing risks and be nefits with the patient and family, the patient's son signed the consent for intramedullary nail fixa tion for this left hip intertrochanteric fracture that is markedly displaced and comminuted. MICKI/BHARATH Voice ID: [id number] Report ID: [id number]
--- NOTE | 2018-09-01 00:34 | CON ---
Date of Consultation: 08/31/2018 Reason For Consultation: Parkinson's, dysphagia. History Of Present Illness: An 87-year-old lady with a history of bradykinetic dominant Parkinson di christopher with gait dysfunction as well as dementia, who fell at the senior care, complained of left hip pain, brought to the emergency department, found to have a fracture to the left hip that has been re paired surgically today. As part of the workup, she had a CT head and cervical spine demonstrating n o evidence of hemorrhage or acute stroke. She does have known cervical spondylosis. There is a larg e amount of food in the upper cervical esophagus noted on scan. She is normally a patient in the off ice. Given all the aforementioned, neurologic consult was requested. There is no evidence of facial weakness or focal arm or leg weakness to suggest acute infarct as cause of the fall proper. Past Medical History: Parkinson's, hypothyroidism, headaches, and dementia. Allergies: NONE. Social History: The patient is normally in assisted living. Requires assistance with activities of daily living. Family History: Hypertension, dementia. Review of Systems: Not properly obtainable. The patient is postoperative as of this afternoon and is confused; but as n oted, there is no evidence of focal weakness or a seizure to generate the fall. There is left hip pa in and chronic confusion. Physical Examination: Vital Signs: Temperature 97.2, heart rate 96, respiratory rate 17, and blood pressure 153/65. General: Elderly lady, lying in bed, in no distress, awake, knows she is in the hospital, knows her name, is somewhat tangential with regard to the remainder of the history. HEENT: Pupils reactive. Ocular motion full. Blinks to threat. Face symmetric. Neck: Supple. Extremities: Greater than 4+ throughout. Left lower extremity limited secondary to pain. Bilateral cogwheeling and generalized bradykinesia, especially at the wrists and elbows. Sensation intact. R eflexes 1/4. Toes are neutral. Cannot test gait or cerebellar function. Pertinent Laboratory Data: White count 9.8, hemoglobin 9.7, and platelets 297. Electrolytes normal. Glucose 109. Iron 37, low. B12 normal at 253. Impression: Parkinson disease with dysphagia and dementia. Plan: I agree with Speech Therapy evaluation. Continue present antiparkinsonian medications. We wi ll re-evaluate tomorrow once the patient is a little more lucid. Thank you for the consult. We will continue to follow with you. ANGUS Voice ID: [id number] Report ID: [id number]
[2018-09-01] MEDS: MORPHINE 2 MG/ML SYR IV PRN (02:56)
[2018-09-01] MEDS: NA CHLORIDE 0.9% 1,000 ML IV SCH (05:24)
--- NOTE | 2018-09-01 05:35 | OP ---
Date of Procedure: 08/31/2018 Surgeon: Sundar Agarwal MD Preoperative Diagnosis: Left intertrochanteric proximal femur fracture, displaced and comminuted. Postoperative Diagnosis: Left intertrochanteric proximal femur fracture, displaced and comminuted. Procedure: Intramedullary nail fixation, left intertrochanteric proximal femur fracture. Indications: This 87-year-old female has had frequent falls bringing her to the operating room for t he fourth time in just barely over a month. She, with this fall suffered an intertrochanteric fractu re with displacement. She has been cleared medically and is being taken to surgery for intramedullar y nail fixation. All risks and benefits were discussed with the patient's family, her son has signed the permit and Dr. Tank Mcleod is the anesthesiologist who has evaluated the patient and deemed her suitable for anesthesia. Description Of Procedure: The patient was taken to the operating room. She was given a general anes thesia. She was placed on the fracture table with feet placed in the traction boot with appropriate wrap control using foam padding and Velcro straps. Traction was applied to the left lower extremity and the C-arm was moved into position for the reduction. The multiple adjustments were made to enhan ce the reduction of the left hip intertrochanteric fracture because of its comminution. Once the red uction was acceptable, the prepping and draping was carried out using a vertical isolation drape. A time-out was called and all pertinent facts were discussed and it was decided to proceed with the ope ration as planned. The incision was made 2 cm in length above the greater trochanter. Then [place] sci ssors were used to create a path to the greater trochanter, which was approached with a cannulated aw l and that was used to open the greater trochanter access into the intertrochanteric region of the pr oximal left femur. The trochanteric reamer was then utilized after a guidewire was passed through th e cannulated awl into the intramedullary canal down to the knee. The size 13 mm x 180 mm AFFIXUS hip nail with a 125 degree neck angle was passed and tapped into place with C-arm verification of approp riate position. The outrigger was in place and the approach to insert the lag screw was made with a longitudinal incision 2 cm in length. This allowed the guide to be placed up against the lateral re e of the femur and then drilling a guidewire required adjustments several times to appropriately posi tion the guidewire in the midportion of the femoral head, then reaming and insertion of the lag screw which was 10.5 mm x 95 mm. It was rotated into position, verified by C-arm to be appropriately thro ugh the intramedullary nail and calcar and centered basically in the femoral head. An anti-rotationa l screw 75 mm in length was placed just superior and parallel to the lag screw. Attention was then t urned to making the distal interlocking screw approach from the lateral aspect of the outrigger guide . The incision was 1 cm in length and this allowed the guide to be pressed against the lateral nithya x of the femoral shaft. Drilling and insertion of a 38 mm x 5 mm distal interlocking screw was accom plished. All fixation components were evaluated with the C-arm and felt to be appropriately position ed to secure this fracture. The wounds were irrigated profusely with normal saline and then closed w ith #1 Vicryl for fascial layers, 2-0 Vicryl for subcutaneous layers, and skin matt for skin. The incisions were covered with Aquacel bandages after 30 mL of 0.25% Marcaine with epinephrine was inje cted into these incisions. The patient was then taken from the fracture table and transferred to the recovery room having tolerated this procedure well. Estimated blood loss was 150 mL. MICKI/BHARATH Voice ID: [id number] Report ID: [id number]
[2018-09-01 06:14] LABS: Magnesium 2.3 mg/dL (1.8-2.4); Potassium 3.9 mmol/L (3.5-5.1)
[2018-09-01 06:15] LABS: Absolute Lymphocytes (CBC) 0.5 K/uL (0.7-4.9); Absolute Monocytes 0.7 K/uL (0.1-1.3); Absolute Neutrophil 5.7 K/uL (1.8-8.0); Basophils % 0.5 % (0-1.3); Eosinophils % 2.8 % (0-4.4); Hematocrit 21.9 % (36.0-45.0); Lymphocytes % 7.3 % (15.3-44.8); MCH 29.2 pg (27.0-35.0); MPV 7.7 fL (7.6-11.3); Monocytes % 9.4 % (3.3-12.3); RBC Red Blood Cell Count 2.49 M/uL (3.86-4.86)
[2018-09-01] MEDS: LEVOTHYROXINE SOD 0.075 MG TAB PO SCH (06:30)
[2018-09-01] MEDS ORDERED: KCL 20 MEQ/100 mL IVPB 20 MEQ/100 ML BAG IV SCH (07:00)
[2018-09-01] MEDS: PARoxetine HCl 10 MG TAB PO SCH (09:00)
[2018-09-01] MEDS: HOME MED 1 EA UNK (Cyclosporine [Restasis] 1 DROP) EACH EYE SCH ×2 (09:00→21:00)
[2018-09-01] MEDS: BUMETANIDE 1 MG TABLET PO SCH (09:00)
[2018-09-01] MEDS: VENLAFAXINE HCL XR 75 MG CAP PO SCH (09:00)
[2018-09-01] MEDS: CARBIDOPA/LEVODOPA 25/250 TAB PO SCH ×4 (09:00→21:00)
[2018-09-01] MEDS: PANTOPRAZOLE 40 MG INJ IVP SCH (09:00)
[2018-09-01] MEDS: ASPIRIN 81 MG CHEWABLE TABLET PO SCH (09:00)
[2018-09-01] MEDS: RIVASTIGMINE 9.5 MG/24 HR PATCH TD SCH (09:40)
[2018-09-01] MEDS: MIDODRINE HCL 5 MG TABLET PO SCH ×2 (10:30→21:00)
[2018-09-01] MEDS: LOSARTAN POTASSIUM 50 MG TABLET PO SCH (10:30)
--- NOTE | 2018-09-01 10:30 | RAD REPORT ---
EXAM DESCRIPTION: RAD - Hip In Or - 08/31/2018 9:39 pm FINDINGS: There were 8 portable C-arm views obtained during fluoroscopic assisted placement of fract ure fixation hardware. Images show no suspicious or unexpected finding. Fluoro time was 1.4 minutes.
[2018-09-01 12:31] LABS: Hematocrit 24.9 % (36.0-45.0)
--- NOTE | 2018-09-01 12:36 | RAD REPORT ---
EXAM DESCRIPTION: RAD - Barium Swallow Modified - 09/01/2018 11:06 am CLINICAL HISTORY: Difficulty swallowing, coughing and choking COMPARISON: CT head and cervical August 30 TECHNIQUE: The patient was given liquid, semi-solid and solid forms of barium. Lateral view fluorosc opic imaging was performed in conjunction with speech pathology service. Delete select FINDINGS: Aspiration with a triggered cough reflex noted on thin, nectar, honey and cure aid forms o f barium. There was significant residual contrast in the valleculae and piriform sinuses. Esophageal stasis observed. In the lower neck there was a 3 centimeter pouch like collection of contrast. This is the correlate t o the finding on the August 30 CT head and cervical imaging. At the time of the CT, this is thought to be stasis within the cervical esophagus. 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 Full as sessment of this region is limited when utilizing only modified barium exam and noncontrast CT imagin g. There were 30 cine loop acquisitions obtained. Fluoro time was 6 minutes 36 seconds. IMPRESSION: Multiple episodes of aspiration on varying forms of contrast. 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 Findings are detailed above and on speech pathology report.
--- NOTE | 2018-09-01 15:03 | P.PN ---
Subjective Date of Service: 09/01/18 Primary Care Provider: Dr. Guidry; Cardiology-Dr. Russell; Neurology-Dr. Lim Chief Complaint: hip fracture Subjective: Demented, Other (follow up commands) Physical Examination - Vital Signs Temperature: 97.0 F Blood Pressure: 125/58 Pulse: 92 Respirations: 18 Pulse Ox (%): 95 - Physical Exam General: Alert, In no apparent distress, Demented HEENT: Atraumatic Neck: Supple Respiratory: Clear to auscultation bilaterally, Normal air movement Cardiovascular: Normal pulses, Regular rate/rhythm Gastrointestinal: Normal bowel sounds, Soft and benign, Non-distended, No tenderness, No masses, No rebound, No guarding Musculoskeletal: No erythema, No tenderness, No warmth Integumentary: No tenderness/swelling, No erythema, No warmth, No cyanosis Neurological: Normal speech, Normal strength at 5/5 x4 extr, Normal tone, Normal affect - Studies Medications List Reviewed: Yes Assessment & Plan Discharge Plan: Longterm Plan to discharge in: Greater than 2 days Physician Review Additional Text: Impression: Fall leading to left intertrochanteric femur fracture status post IM nail fixation POD #1 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 Will have PT evaluate patient for SNF placement. Will start DVT prophylaxis. Will continue with pain control. Patient with Parkinsons/dementia so will likely only qualify for SNF instead of inpatient rehab.complicated with encephalopathy status post surgery Parkinson's disease with mild dementia : Will continue with her home medication. Will monitor for changes. Fall precautions in place. Neurology consult to monitor and address. Hypothyroidism: Will continue with her medication. Hypertension: Will provide medication. Will need to review her home medication and reconcile. Depression: Will continue with home medication. 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 Spoke to Surgery for consultation for PEG tube. Will need to discuss with family and concerning dobhoff placement to start nutrition and to discuss the need for PEG tube. Will keep NPO after midnight as she may have PEG tube placed tomorrow if family and agree. GERD: Will continue PPI. Anemia likely of chronic disease and moderate malnutrition with Iron/B12 deficiency: Will start IV iron and IM B12. Will need to monitor H/H. May need transfusion if Hemoglobin less than 7.0 Acute renal sufficiency likely from dehydration: Will adjust IV fluids. Time Spent Managing Pts Care (In Minutes): 55
[2018-09-01] MEDS: CYANOCOBALAMIN 1000MCG/ML INJ IM SCH ×2 (15:30→16:49)
[2018-09-01] MEDS: D5 0.45 NS 1,000 ML IV SCH (16:49)
[2018-09-01] MEDS: ENOXAPARIN 40 MG/0.4 ML SQ SCH (16:50)
--- NOTE | 2018-09-01 18:21 | P.PN ---
Date of Service: 09/01/18 (POD#1) S: THE PATIENT WAS ABLE TO WORK WITH PHYSICAL THERAPY THIS MORNING MOVING 12' WITH A ROLLING WALKER, BUT CITED HAVING GLOBAL WEAKNESS AND INABILITY TO FOLLOW INSTRUCTIONS. THIS AFTERNOON SHE WAS ASLEEP AND WOULD NOT AWAKEN WITH VERBAL STIMULATION. O: AFEBRILE, VSS, HGB 7.3 THIS AM DOWN FROM POST-OP 9.4. DISCUSSED LIKELY NEED FOR TRANSFUSION WITH THE FAMILY YESTERDAY HER LOW INITIAL HEMOGLOBIN COMBINED WITH DEHYDRATION USUALLY PRESENT AFTER HIP FRACTURE WITH DELAY OF TRANSFER TO THE HOSPITAL AND ED PROCESSING USUALLY DROPS WITH REHYDRATION. HGB 8.3 12:15 PM. BANDAGE CLEAN DRY AND INTACT. MORPHINE 2 MG GIVEN IV ONLY ONCE JUST BEFORE 3 AM. PAIN RECORD INDICATES 2/10 THE USUAL WHEN PATIENT ABLE TO RESPOND. A: POOR PROGNOSIS WITH PARKINSONISM, DEMENTIA, AND DYSPHAGIA. THE PATIENT HAS BEEN EXPERIENCING FREQUENT FALLS WITH FOR TRIPS TO THE EMERGENCY ROOM IN THE PAST MONTH DESPITE ALL PRECAUTIONS TAKEN AT HER FACILITY. P: PROCEED WITH MOBILIZATION POSSIBLE AND TOLERATED. DR. BAILEY DISCUSSING OPTIONS WITH FAMILY WHO WERE NOT PRESENT DURING MY VISIT.
[2018-09-01] MEDS: QUETIAPINE 25 MG TAB PO SCH (21:00)
[2018-09-01] MEDS: TOPIRAMATE 25 MG TAB PO SCH (21:00)
--- NOTE | 2018-09-02 02:56 | PN ---
Date of Progress Note: 09/01/2018 Time: 2100. Reason: Parkinson's, dysphagia. Interval History: The patient is not doing well. She has a postoperative delirium and then further complicating that is the results of her modified barium swallow demonstrating what appears to be a Ze nker's diverticula 3 mm with aspiration. Speech Pathology recommends n.p.o. and GI consult. Review of notes from Dietary, Speech, as well as Case Management reveal that the options given wore G-tube v ersus hospice. I think probably prudent to have opinions from ENT and GI. The patient's sensorium i s actually quite a bit clearer now than it was last night and so repeat modified barium swallow was a pparently scheduled for tomorrow as well as a GI consult. We will request an opinion from ENT as glenys bonds. The patient may require higher level of care as family whom I have known for years as the patient has been a long-term clinic patient is really not comfortable with either hospice or G-tube placemen t. Physical Examination: General: The patient is awake, alert, conversant, slightly tangential, and greatly improved from las t night. Ocular motion full. [place] full. Moderate generalized bradykinesia of parkinsonism is not excessively worse. Reflexes are symmetric. Extremities: Examination of the left lower extremity is limited secondary to the recent hip surgery. Impression: Parkinson's, dysphagia. Plan: GI and ENT evaluation regarding the dysphagia and apparent Zenker's diverticula. We will cont inue to follow with you. Time, 1 hour. ANGUS Voice ID: [id number] Report ID: [id number]
[2018-09-02] MEDS: LEVOTHYROXINE SOD 0.075 MG TAB PO SCH (05:54)
[2018-09-02] MEDS: D5 0.45 NS 1,000 ML IV SCH ×2 (05:59→17:40)
[2018-09-02 07:21] LABS: BUN Blood Urea Nitrogen 9 mg/dL (7-18); Bicarbonate 21 mmol/L (21-32); Glucose Level 130 mg/dL (74-106); Magnesium 2.1 mg/dL (1.8-2.4); Sodium Level 142 mmol/L (136-145)
[2018-09-02 08:02] LABS: Absolute Lymphocytes (CBC) 0.6 K/uL (0.7-4.9); Absolute Monocytes 0.8 K/uL (0.1-1.3); Absolute Neutrophil 6.3 K/uL (1.8-8.0); Basophils % 0.6 % (0-1.3); Hematocrit 20.5 % (36.0-45.0); MCH 29.8 pg (27.0-35.0); MCV 87.4 fL (80-100); MPV 8.3 fL (7.6-11.3); Monocytes % 9.5 % (3.3-12.3); RBC Red Blood Cell Count 2.35 M/uL (3.86-4.86)
[2018-09-02] MEDS: BUMETANIDE 1 MG TABLET PO SCH (09:00)
[2018-09-02] MEDS: ASPIRIN 81 MG CHEWABLE TABLET PO SCH (09:00)
[2018-09-02] MEDS: LOSARTAN POTASSIUM 50 MG TABLET PO SCH (09:00)
[2018-09-02] MEDS: HOME MED 1 EA UNK (Cyclosporine [Restasis] 1 DROP) EACH EYE SCH ×2 (09:00→21:00)
[2018-09-02] MEDS: MIDODRINE HCL 5 MG TABLET PO SCH ×2 (09:00→21:00)
[2018-09-02] MEDS: VENLAFAXINE HCL XR 75 MG CAP PO SCH (09:00)
[2018-09-02] MEDS: PARoxetine HCl 10 MG TAB PO SCH (09:00)
[2018-09-02] MEDS: CARBIDOPA/LEVODOPA 25/250 TAB PO SCH ×4 (09:00→21:00)
[2018-09-02] MEDS: SOD FERRIC GLUC COMPLX/SUCROSE 125 MG in NA CHLORIDE 0.9% 100 ML IV SCH (09:35)
[2018-09-02] MEDS: PANTOPRAZOLE 40 MG INJ IVP SCH (09:36)
[2018-09-02] MEDS: RIVASTIGMINE 9.5 MG/24 HR PATCH TD SCH (09:37)
[2018-09-02] MEDS: VANCOMYCIN 1.25 GM in NA CHLORIDE 0.9% 250 ML IVPB SCH (10:55)
[2018-09-02] MEDS ORDERED: NA CHLORIDE 0.9% 250 ML ONE (13:26)
--- NOTE | 2018-09-02 16:17 | P.PN ---
Subjective Date of Service: 09/02/18 Primary Care Provider: Dr. Guidry; Cardiology-Dr. Russell; Neurology-Dr. Lim Chief Complaint: hip fracture Subjective: Demented, Other (Patient was doing well this morning. She had some delirium towards the end of the day.) Physical Examination - Vital Signs Temperature: 98.3 F Blood Pressure: 140/63 Pulse: 91 Respirations: 17 Pulse Ox (%): 95 - Physical Exam General: Alert, In no apparent distress, Demented HEENT: Atraumatic Neck: Supple Respiratory: Clear to auscultation bilaterally, Normal air movement Cardiovascular: Normal pulses, Regular rate/rhythm Gastrointestinal: Normal bowel sounds, Soft and benign, Non-distended, No tenderness, No masses, No rebound, No guarding Musculoskeletal: No erythema, No tenderness, No warmth Integumentary: No tenderness/swelling, No erythema, No warmth, No cyanosis Neurological: Normal speech, Normal strength at 5/5 x4 extr, Normal tone, Dementia - Studies Medications List Reviewed: Yes Assessment & Plan Discharge Plan: Transfer Plan to discharge in: 24 Hours Physician Review Additional Text: Impression: Fall leading to left intertrochanteric femur fracture status post IM nail fixation POD #2 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 Postop delirium noted. Will continue physical therapy. Patient on DVT prophylaxis. Encourage incentive spirometer. Complications stated below. 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 Will continue monitor changes. Her encephalopathy has improved. Will discuss further with Neurology UTI with culture positive for methicillin-resistant Staph aureus: Patient found to have methicillin-resistant UTI. Will start vancomycin. Patient will need a course of 7 day treatment. PICC line will be placed. Will consult infectious disease for further recommendation. Acute on chronic Anemia likely of chronic disease and moderate malnutrition with Iron/B12 deficiency: Hemoglobin near 7. Will transfuse 2 units. Will need to continue with iron and B12 supplementation thereafter. Will need to monitor hemoglobin closely. 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 Case discussed at length with speech pathology. ENT/GI recommended. Case discussed with ENT. ENT will review films. Patient may require transfer to higher level of care center to further treat her diverticulum. Patient still may require PEG tube in the future. Will discuss with Neurology as well as he has seen the patient for a long time. Will hold off on placing dobhoff due to her diverticulum. Will start TPN. Dietary consulted to help with this. PICC line has been ordered. Hypothyroidism: Will continue with her medication. Hypertension: Will provide medication. Depression: Will continue with home medication. GERD: Will continue PPI. Acute renal sufficiency likely from dehydration: Will adjust IV fluids. Case discussed at length with family. Await further recommendations from ENT, infectious disease. Case discussed with surgery and GI as well. Time Spent Managing Pts Care (In Minutes): 55
[2018-09-02] MEDS: ENOXAPARIN 40 MG/0.4 ML SQ SCH (17:44)
[2018-09-02] MEDS: QUETIAPINE 25 MG TAB PO SCH (21:00)
--- NOTE | 2018-09-02 21:00 | CON ---
INFECTIOUS DISEASE CONSULT History Of Present Illness: This is an 87-year-old female. I was consulted for MRSA urinary tract i nfection. The patient is here for left hip fracture; for which, she had open ORIF done on 08/31. Th e patient denies any headache, nausea, vomiting, chest pain, abdominal pain, constipation, or diarrhe a. Somewhat confused as the patient is not able to answer properly. Most of the history was obtaine d through medical staff and medical records and family is by the bedside. Past Medical History: Includes hypertension, Parkinson's, orthostatic hypotension, depression, hypot hyroidism, and peripheral edema. Social History: Nonsmoker, nondrinker. Family History: Noncontributory. Medications: Vancomycin. See MARs for other medication. Allergies: NO KNOWN DRUG ALLERGIES. Review of Systems: A 10-point review was performed. Physical Examination: General: This is an 87-year-old female, lying in bed, not in any acute cardiopulmonary distress. Vital Signs: Temperature 98.3, pulse 91, respirations 17, and blood pressure 140/63. HEENT: Unremarkable. Neck: Supple. Lungs: Basal crackles. Heart: S1, S2. Regular. Abdomen: Soft, nontender. Bowel sounds positive. Extremities: Trace edema. Laboratory Data: Shows WBC 8, hemoglobin 7.1, platelets are 236. Chemistry shows sodium 142, potass ium 4, chloride 115, bicarb 21, BUN 9, creatinine 0.6, and glucose 130. Micro data shows the patient has MRSA in the urine, currently treated with vancomycin. Assessment And Plan: An 87-year-old female with recent left hip fracture, status post ORIF, now with MRSA urinary tract infection, Norman catheter in place. Continue vancomycin, total course of 10 days . Can be switched to oral replacement if the patient being discharged. We will follow the patient c sandovally. Thank you Dr. Murrieta for consult. NF/MODL Voice ID: [id number] Report ID: [id number]
[2018-09-02] MEDS: FUROSEMIDE 20 MG/ 2ML VIAL IV PRN (23:25)
--- NOTE | 2018-09-03 02:31 | PN ---
Date of Progress Note: 09/02/2018 Reason: Parkinson's. Interval History: The patient is generally stable, seen by the ENT, was able to discuss that with Dr Bruno Rees and that appreciated going to be transferred, to be evaluated for possible surgical interve ntion for the Zenker diverticulum. The patient less delirious than she was yesterday. Knows she is in the hospital, still slightly inappropriate at times. Physical Examination: Neurologic: She is awake, alert, conversant, follows commands. Pupils reactive. Ocular motion full . Diplopia on left gaze, resolves on far right gaze. Face symmetric. Bilateral cogwheeling and rig idity mild. Sensation intact. Reflexes symmetric. Impression: Parkinson disease, dysphagia, Zenker diverticulum. Plan: We will stop the topiramate. She has been taking that for chronic headaches. Decrease the Si nemet to 3 times daily on her DEC when they restart her medications, which may be up in [place]. She has primarily bradykinetic gait failure dominant type Parkinson's and she is not really ambulating. Significant dose of Sinemet may contribute to delirium if she restarts that dose after being off for several days. We will continue to follow with you. ANGUS Voice ID: [id number] Report ID: [id number]
[2018-09-03] MEDS: FUROSEMIDE 20 MG/ 2ML VIAL IV PRN (03:06)
[2018-09-03 04:56] LABS: Absolute Lymphocytes (CBC) 0.8 K/uL (0.7-4.9); Absolute Monocytes 0.8 K/uL (0.1-1.3); Absolute Neutrophil 6.6 K/uL (1.8-8.0); Basophils % 0.6 % (0-1.3); Eosinophils % 2.8 % (0-4.4); Hematocrit 30.2 % (36.0-45.0); Lymphocytes % 9.4 % (15.3-44.8); MCH 30.6 pg (27.0-35.0); MCV 88.2 fL (80-100); MPV 8.6 fL (7.6-11.3); Monocytes % 9.2 % (3.3-12.3); RBC Red Blood Cell Count 3.43 M/uL (3.86-4.86)
[2018-09-03 05:06] LABS: BUN Blood Urea Nitrogen 9 mg/dL (7-18); Bicarbonate 24 mmol/L (21-32); Glucose Level 105 mg/dL (74-106); Magnesium 1.9 mg/dL (1.8-2.4); Potassium 3.2 mmol/L (3.5-5.1); Sodium Level 142 mmol/L (136-145)
[2018-09-03] MEDS: LEVOTHYROXINE SOD 0.075 MG TAB PO SCH (05:22)
[2018-09-03] MEDS: D5 0.45 NS 1,000 ML IV SCH ×3 (05:54→20:12)
[2018-09-03] MEDS: KCL 20 MEQ/100 mL IVPB 20 MEQ/100 ML BAG IV SCH ×2 (07:52→09:33)
[2018-09-03] MEDS: ASPIRIN 81 MG CHEWABLE TABLET PO SCH (08:51)
[2018-09-03] MEDS: BUMETANIDE 1 MG TABLET PO SCH (08:51)
[2018-09-03] MEDS: VENLAFAXINE HCL XR 75 MG CAP PO SCH (08:53)
[2018-09-03] MEDS: HOME MED 1 EA UNK (Cyclosporine [Restasis] 1 DROP) EACH EYE SCH ×2 (08:53→20:13)
[2018-09-03] MEDS: LOSARTAN POTASSIUM 50 MG TABLET PO SCH (08:53)
[2018-09-03] MEDS: PARoxetine HCl 10 MG TAB PO SCH (08:54)
[2018-09-03] MEDS: MIDODRINE HCL 5 MG TABLET PO SCH ×2 (08:55→20:07)
[2018-09-03] MEDS: CARBIDOPA/LEVODOPA 25/250 TAB PO SCH ×3 (08:55→20:08)
[2018-09-03] MEDS ORDERED: VANCOMYCIN 1 GM in NA CHLORIDE 0.9% 500 ML IVPB SCH (09:00)
--- NOTE | 2018-09-03 09:15 | RAD REPORT ---
EXAM DESCRIPTION: RAD - Chest Single View - 09/03/2018 4:20 am CLINICAL HISTORY: Device placement PICC line placement COMPARISON: August 30, 2018 FINDINGS: A PICC line has been inserted with its tip in the caval atrium junction The lungs appear clear of acute infiltrate. The heart is borderline enlarged
[2018-09-03] MEDS: RIVASTIGMINE 9.5 MG/24 HR PATCH TD SCH (09:32)
[2018-09-03] MEDS: SOD FERRIC GLUC COMPLX/SUCROSE 125 MG in NA CHLORIDE 0.9% 100 ML IV SCH (09:32)
[2018-09-03] MEDS: PANTOPRAZOLE 40 MG INJ IVP SCH (09:33)
[2018-09-03] MEDS: VANCOMYCIN 1.25 GM in NA CHLORIDE 0.9% 250 ML IVPB SCH (09:33)
--- NOTE | 2018-09-03 09:57 | P.PN ---
Subjective Date of Service: 09/03/18 Primary Care Provider: Dr. Guidry; Cardiology-Dr. Russell; Neurology-Dr. Lim Chief Complaint: hip fracture Subjective: Demented, Other (Patient with mild delirium) Physical Examination - Vital Signs Temperature: 98.6 F Blood Pressure: 152/94 Pulse: 90 Respirations: 18 Pulse Ox (%): 99 - Physical Exam General: Alert, In no apparent distress, Demented, Other (Delirium noted) HEENT: Atraumatic Neck: Supple Respiratory: Clear to auscultation bilaterally, Normal air movement Cardiovascular: Normal pulses, Regular rate/rhythm Gastrointestinal: Normal bowel sounds, Soft and benign, Non-distended Musculoskeletal: No erythema, No tenderness, No warmth Integumentary: No erythema, No warmth, No cyanosis Neurological: Normal speech, Normal strength at 5/5 x4 extr, Normal tone, Dementia - Studies Medications List Reviewed: Yes Assessment & Plan Discharge Plan: Transfer Physician Review Additional Text: Impression: Fall leading to left intertrochanteric femur fracture status post IM nail fixation POD #3 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 Continue with physical therapy. Will continue with postoperative care. Continue with orthopedic recommendations. Patient on DVT prophylaxis. Encourage incentive spirometer. 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 Neurology has adjusted her medication. Topamax discontinued. Parkinson's medication has been decreased. UTI with culture positive for methicillin-resistant Staph aureus: Patient found to have methicillin-resistant UTI. Patient started on vancomycin. Patient will need a course of 7 day treatment. PICC line now in place. Will consult infectious disease for further recommendation. Acute on Chronic Anemia likely of chronic disease and moderate malnutrition with Iron/B12 deficiency: Patient received 2 units of blood. Anemia improved. Will continue monitor closely. Will continue with iron and B12 supplementation thereafter. Will need to monitor hemoglobin closely. 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 Case discussed at length with speech pathology and ENT yesterday. After long discussion with family and ENT, patient will be transferred to a specialist at [facility]-Dr. Adán Smith to further evaluate and treat the Zenker's diverticulum. Patient will likely have PEG tube placed at that time as well. Patient be transferred to [facility]. Currently awaiting bed. Patient has PICC line in place. Will start TPN. Aspiration precaution in place. Hypothyroidism: Will continue with her medication. Hypertension: Will provide medication. Depression: Will continue with home medication. GERD: Will continue PPI. Acute renal sufficiency likely from dehydration: Will adjust IV fluids. Time Spent Managing Pts Care (In Minutes): 55
[2018-09-03] MEDS: ENOXAPARIN 40 MG/0.4 ML SQ SCH (17:46)
[2018-09-03] MEDS: QUETIAPINE 25 MG TAB PO SCH (20:07)
--- NOTE | 2018-09-04 03:29 | P.PN ---
Date of Service: 09/02/18 S: SAW PATIENT~1 PM. WROTE NOTE, SOMEHOW NOT SAVED. RECREATING NOTE. PATIENT WAS TRYING TO REMOVE DOSS CATHETER. O: AFEBRILE, VSS, HGB 7.0, VERIFIED. TRANSFUSION TWO UNITS PLANNED. BANDAGE CLEAN DRY AND INTACT. PATIENT STILL NOT NEEDING PAIN MEDS. PT LIMITED BY DROP IN HGB, PATIENT WILLING TO MAKE EFFORT. . A: POOR PROGNOSIS WITH PARKINSONISM, DEMENTIA, AND DYSPHAGIA, ANEMIA, ZENKERS DIVERTICULUM. TRANSFER TO HIGHER LEVEL IN PLAY. P: PROCEED WITH MOBILIZATION POSSIBLE AND TOLERATED.
--- NOTE | 2018-09-04 03:37 | P.PN ---
Date of Service: 09/03/18 (POD#4) S: SAW PATIENT~7:30 AM. PATIENT RESPONDS TO QUERIES WITH SOME DELIRIUM. ADVISED SHE REMOVED BANDAGE LAST NIGHT AND IT WAS REPLACED. UTI WITH MRSA IS A CONCERN FOR CONTAMINATION. SOMEHOW NOT SAVED. RECREATING NOTE. PATIENT WAS TRYING TO REMOVE DOSS CATHETER. O: AFEBRILE, VSS, HGB 10.5 with 2 UNITS PRBCs. PATIENT ABLE TO WORK WITH PT, 15 WITH RW. BANDAGE CLEAN DRY AND INTACT. A: POOR PROGNOSIS WITH PARKINSONISM, DEMENTIA, AND DYSPHAGIA, ANEMIA, ZENKERS DIVERTICULUM. TRANSFER TO HIGHER LEVEL WHEN BED AVAILABLE. P: PROCEED WITH MOBILIZATION POSSIBLE AND TOLERATED.
[2018-09-04] MEDS: LEVOTHYROXINE SOD 0.075 MG TAB PO SCH (05:30)
[2018-09-04 05:40] LABS: BUN Blood Urea Nitrogen 10 mg/dL (7-18); Bicarbonate 25 mmol/L (21-32); Glucose Level 107 mg/dL (74-106); Sodium Level 142 mmol/L (136-145)
[2018-09-04] MEDS: KCL 20 MEQ/100 mL IVPB 20 MEQ/100 ML BAG IV SCH ×2 (07:44→09:53)
[2018-09-04] MEDS: ASPIRIN 81 MG CHEWABLE TABLET PO SCH (09:00)
[2018-09-04] MEDS: CARBIDOPA/LEVODOPA 25/250 TAB PO SCH ×3 (09:00→20:11)
[2018-09-04] MEDS: MIDODRINE HCL 5 MG TABLET PO SCH ×2 (09:00→21:00)
[2018-09-04] MEDS: VENLAFAXINE HCL XR 75 MG CAP PO SCH (09:00)
[2018-09-04] MEDS: BUMETANIDE 1 MG TABLET PO SCH (09:00)
[2018-09-04] MEDS: HOME MED 1 EA UNK (Cyclosporine [Restasis] 1 DROP) EACH EYE SCH ×2 (09:00→20:11)
[2018-09-04] MEDS: PARoxetine HCl 10 MG TAB PO SCH (09:00)
[2018-09-04] MEDS: RIVASTIGMINE 9.5 MG/24 HR PATCH TD SCH (09:00)
[2018-09-04] MEDS: LOSARTAN POTASSIUM 50 MG TABLET PO SCH (09:00)
[2018-09-04] MEDS: D5 0.45 NS 1,000 ML IV SCH (09:40)
[2018-09-04] MEDS: PANTOPRAZOLE 40 MG INJ IVP SCH (09:49)
[2018-09-04] MEDS: SOD FERRIC GLUC COMPLX/SUCROSE 125 MG in NA CHLORIDE 0.9% 100 ML IV SCH (09:49)
[2018-09-04] MEDS ORDERED: D50W 25 GM/50 ML SYRINGE IV PRN (10:06)
[2018-09-04] MEDS ORDERED: GLUCAGON 1 MG/VIAL IM PRN (10:06)
[2018-09-04] MEDS: VANCOMYCIN 1.25 GM in NA CHLORIDE 0.9% 250 ML IVPB SCH (10:57)
[2018-09-04] MEDS ORDERED: DEXTROSE 10%-WATER 500 ML IV SCH (11:00)
--- NOTE | 2018-09-04 11:17 | P.PN ---
Date of Service: 09/04/18 (POD#4(SAT.)) S: HAD OPPORTUNITY TO SEE PATIENT WORK WITH THERAPY. WAS LOOKING FORWARD TO REPORTS OF [facility] PARTICIPATION, BUT PATIENT TODAY WITH EYES REMAINING CLOSED THROUGHOUT ENCOUNTER WAS TOO SLEEPY TO BE LEFT SITTING. SHE DID STAND AND MOVE FORWARD A FEW STEPS, BUT WOULD NOT DO MORE. O: AFEBRILE, VSS, HGB 9.4. BANDAGE CLEAN DRY AND INTACT. STILL NO PAIN MEDS REQUIRED. A: POOR PROGNOSIS. TRANSFER PENDING TO HIGHER LEVEL WHEN BED AVAILABLE. P: PROCEED WITH MOBILIZATION POSSIBLE AND TOLERATED.
--- NOTE | 2018-09-04 11:17 | CON ---
Date of consultation: Sep 02, 2018 Reason For Consultation: aspiration and dysphagia. Chief Complaint: Difficulty swallowing. History Of Present Illness: Ms. Han is an 87-year-old woman with a history of Parkinson's, anxiety, depression, and dementia with multiple urinary infections and falls. She was admitted to the hospital on Thursday following a fall resulting in left hip pain and inability to bear weight on the left leg. She was found to have a comminuted intertrochanteric femoral fracture and was admitted to the hospital. She underwent surgery by Dr. Agarwal on August 31 including an IM nail fixation of her left hip. During her initial convalescence , she was also noted to have difficulty swallowing. In detailed discussion with the patient's daughters who were at the bedside, the patient had slowly progressive weight loss and complains of difficulty swallowing over the last year. The patient complained of the food at her assisted living starting approximately 6-7 months ago. The daughters have noted that while eating, the patient will occasionally cough into napkin and discretely put the napkin to the side, raising suspicion for coughing up of undigested foods. The patient is currently experiencing some degree of postoperative delirium, but is better oriented today according to the family, but it is difficult to obtain information directly from the patient at this time. The patient recently underwent a modified barium swallow during this hospitalization, which demonstrated a 3 cm Zenker's diverticulum as well as aspiration triggering the cough noted with thin nectar and honey and pureed forms of barium with significant residual within the vallecula and pyriform sinus as well as esophageal stasis. The family is concerned about the patient's weight loss, ability to tolerate oral diet, maintain her nutritional status, but are also mildly opposed to the patient being n.p.o. and getting a feeding tube. The nurses last night attempted to place a Dobbhoff tube as a temporizing measure, but likely due to the Zenker's were unable to pass the tube into the stomach. In addition with the patient's confusion, she did not tolerate the tube in the nose and removed it. Past Medical History: Parkinson's with dementia, hypothyroidism, peripheral edema, hypertension, depression. Family History: Dementia in her father. Breast cancer and hypertension in her mother. Brother with myocardial infarction. Sister with kidney cancer. Social History: No alcohol, tobacco, or drugs. The patient resides in a prison currently. Physical Examination: General: The patient is alert but mildly confused. She is not overly fidgety at the time of my exam. She is oriented to person and is able to identify her 2 daughters with mild amount of prompting. HEENT: Her head and Face are atraumatic. Her pupils are equal, round, and reactive. Her nares are patent. Her oral cavity is unremarkable. Imaging Data: Including her modified barium swallow is reviewed and confirms what appears to be a Zenker's diverticulum. A non-contrasted CT scan of the neck is also reviewed. There is a some abnormality on the left aspect posterior to the larynx, which is ill-defined without contrast, but would be consistent with a large Zenker's diverticulum with retained food particle or debris. A similar imaging from 2016 indicates similar finding though the pocket was slightly smaller at that time, approximately 17 x 26 mm. Assessment: Zenker's diverticulum and aspiration of all consistencies on modified barium swallow with a high risk for development of aspiration pneumonia with p.o. intake in the setting of an 87-year-old woman with recently repaired hip fracture and Parkinson's disease. I underwent a detailed discussion with the patient's daughters regarding her history, clinical findings , radiographic findings and treatment options. We discussed the need for nutritional support, particularly in light of her weight loss over the last year and her recent injury. She is a high risk for Dobbhoff tube placement due to the size of the Zenker's diverticulum and is unlikely to tolerate the Dobbhoff tube due to her confusion and resolving, but still present, delirium in the setting of existing dementia. We discussed the option of hospice, which is not of interest at this time. We discussed details of repair of a Zenker's diverticulum in conjunction with PEG tube placement. The rationale for this would be to repair the Zenker's and allow feeding access during the healing process with the potential to remove the PEG tube in 4-6 weeks once the Zenker' s is well healed and if the patient's repeat swallow study reveals no leakage and no aspiration or minimal aspiration controllable with dietary modifications. We discussed that the patient's underlying Parkinson's puts her at risk for dysphagia, swallowing problems including aspiration, even if the Zenker's is repaired. The family understands that if the patient is still aspirating after repair of Zenker's, then the feeding tube would be in place to allow continued nutritional support. The daughters are in favor of this approach. We discussed that the equipment necessary for endoscopic Zenker's repair is not available at this local [facility]. I spoke with Dr. Adán David at [facility] in the [facility] regarding the details of this patient's case. He is in agreement with the proposed plan for transfer to [facility] with ENT consultation for repair of the Zenker's and concurrent PEG tube placement. I spoke with the family as well as Dr. Murrieta and Dr. Lim regarding the proposed plan and all are in favor. All told, I spent more than 75 minutes with the patient and her family in direct discussion and in coordination of care and documentation. I am happy to assist in an additional way in the care of this patient and remain available on an as-needed basis. PERRY Voice ID: [id number] Report ID: [id number] BRITTON
[2018-09-04] MEDS: INSULIN -REGULAR HUMAN 50 UNIT/0.5 ML ML SQ SCH ×2 (12:00→18:00)
--- NOTE | 2018-09-04 12:43 | P.PN ---
Subjective Date of Service: 09/04/18 Primary Care Provider: Dr. Guidry; Cardiology-Dr. Russell; Neurology-Dr. Lim Chief Complaint: hip fracture Subjective: Demented (Patient still with mild delirium. Currently stable this time.) Physical Examination - Vital Signs Temperature: 97.6 F Blood Pressure: 189/85 Pulse: 78 Respirations: 18 Pulse Ox (%): 93 - Physical Exam General: Alert, In no apparent distress, Demented (Mild delirium noted) HEENT: Atraumatic Neck: Supple Respiratory: Clear to auscultation bilaterally, Normal air movement Cardiovascular: Normal pulses, Regular rate/rhythm Gastrointestinal: Normal bowel sounds, Soft and benign, Non-distended, No tenderness, No masses, No rebound, No guarding Musculoskeletal: No erythema, No tenderness, No warmth Integumentary: No tenderness/swelling, No erythema, No warmth, No cyanosis Neurological: Normal speech, Normal strength at 5/5 x4 extr, Normal tone, Dementia - Studies Medications List Reviewed: Yes Assessment & Plan Discharge Plan: Transfer Plan to discharge in: 24 Hours Physician Review Additional Text: Impression: Fall leading to left intertrochanteric femur fracture status post IM nail fixation POD #4 Parkinson's disease with mild dementia complicated with encephalopathy likely postsurgical delirium UTI with culture positive for methicillin-resistant Staph aureus Dysphagia with failed modified barium swallow showing possible large Zenker's diverticulum with high risk for aspiration Acute on chronic Anemia likely of chronic disease and moderate malnutrition with Iron/B12 deficiency Hypothyroidism Hypertension Depression GERD Acute renal insufficiency likely from dehydration Plan: Fall leading to left intertrochanteric femur fracture status post IM nail fixation POD #4: Patient stable from orthopedic standpoint. Will continue with physical therapy. Continue with orthopedic recommendations and follow up. Patient on DVT prophylaxis. Encourage it incentive spirometer. Currently awaiting bed to high-level of care facility to address dysphagia/large Zenker's diverticulum. 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 Mild delirium still noted. Neurology has adjusted her medication. Topamax discontinued. Parkinson' s medication has been decreased. UTI with culture positive for methicillin-resistant Staph aureus: Patient found to have methicillin-resistant UTI. Patient started on vancomycin. Patient will continue with 7 day treatment. PICC line now in place. Infectious disease consulted for further recommendation. Acute on Chronic Anemia likely of chronic disease and moderate malnutrition with Iron/B12 deficiency: Patient has received 2 units of blood. Anemia improved and stable. Will continue monitor closely. Will continue with iron and B12 supplementation thereafter. Will need to monitor hemoglobin closely. 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 Case discussed at length with speech pathology and ENT. Currently awaiting transfer to [facility]-Dr. Adán Smith to further evaluate and treat the Zenker's diverticulum. Patient will likely have PEG tube placed at that time as well. Patient to be transferred to [facility] when bed available. Patient to be started on TPN today. Case discussed with pharmacy to adjust medications and TPN. Hypothyroidism: Will continue with her medication. Hypertension: Will provide medication. Will provide IV medication as tolerated. Depression: Will continue with home medication. GERD: Will continue PPI. Acute renal sufficiency likely from dehydration: Will adjust IV fluids. Time Spent Managing Pts Care (In Minutes): 55
[2018-09-04] MEDS: ENOXAPARIN 40 MG/0.4 ML SQ SCH (17:20)
[2018-09-04] MEDS: AA 5%/D20W/ELECTROLYTES-TPN 2,000 ML, Lipids 20% 250 ML with MULTIVITAMINS INJ 10 ML IV SCH ×3 (17:20)
[2018-09-04] MEDS: QUETIAPINE 25 MG TAB PO SCH (20:11)
--- NOTE | 2018-09-05 01:18 | PN ---
Date of Progress Note: 09/04/2018 Time Seen: 15:00. Reason: Parkinson, dysphagia. Interval History: The patient is little drowsy today. She has not been sleeping well. She has not had any significant nutrition in several days, on IV vancomycin. Plan is for her to start TPN around this afternoon. Physical Examination: General: Patient is drowsy but arousable. HEENT: Pupils reactive and regular post surgical. Ocular motion full. Blinks to treat. Face symmetric. Extremities: Strength 4/5 left lower extremity. Evaluation limited secondary to recent fracture. Impression: Parkinson disease, dysphagia. Plan: Continue supportive care. We will continue to follow with you. ANGUS Voice ID: [id number] Report ID: [id number] BRITTON
[2018-09-05] MEDS: INSULIN -REGULAR HUMAN 50 UNIT/0.5 ML ML SQ SCH ×4 (05:29→18:00)
[2018-09-05] MEDS: LEVOTHYROXINE SOD 0.075 MG TAB PO SCH (05:29)
[2018-09-05] MEDS ORDERED: KCL 20 MEQ/100 mL IVPB 20 MEQ/100 ML BAG IV SCH (08:00)
[2018-09-05] MEDS: PANTOPRAZOLE 40 MG INJ IVP SCH (08:14)
[2018-09-05] MEDS: SOD FERRIC GLUC COMPLX/SUCROSE 125 MG in NA CHLORIDE 0.9% 100 ML IV SCH (08:14)
[2018-09-05] MEDS: VENLAFAXINE HCL XR 75 MG CAP PO SCH (09:00)
[2018-09-05] MEDS: LOSARTAN POTASSIUM 50 MG TABLET PO SCH (09:00)
[2018-09-05] MEDS: RIVASTIGMINE 9.5 MG/24 HR PATCH TD SCH (09:00)
[2018-09-05] MEDS: ASPIRIN 81 MG CHEWABLE TABLET PO SCH (09:00)
[2018-09-05] MEDS ORDERED: POTASSIUM CL SA 10 MEQ TAB PO ONE (09:00)
[2018-09-05] MEDS: PARoxetine HCl 10 MG TAB PO SCH (09:00)
[2018-09-05] MEDS: BUMETANIDE 1 MG TABLET PO SCH (09:00)
[2018-09-05] MEDS: HOME MED 1 EA UNK (Cyclosporine [Restasis] 1 DROP) EACH EYE SCH ×2 (09:00→20:13)
[2018-09-05] MEDS: CARBIDOPA/LEVODOPA 25/250 TAB PO SCH ×3 (09:00→20:14)
[2018-09-05 09:21] LABS: Absolute Lymphocytes (CBC) 0.8 K/uL (0.7-4.9); Absolute Monocytes 0.7 K/uL (0.1-1.3); Absolute Neutrophil 8.1 K/uL (1.8-8.0); Basophils % 0.5 % (0-1.3); Eosinophils % 5.1 % (0-4.4); Hematocrit 32.2 % (36.0-45.0); MCH 30.1 pg (27.0-35.0); MCV 88.6 fL (80-100); MPV 7.6 fL (7.6-11.3); Monocytes % 6.5 % (3.3-12.3); RBC Red Blood Cell Count 3.63 M/uL (3.86-4.86)
[2018-09-05 09:41] LABS: ALT/SGPT 11 U/L (12-78); AST/SGOT 11 U/L (15-37); Albumin 2.3 g/dL (3.4-5.0); Alkaline Phosphatase 80 U/L (45-117); BUN Blood Urea Nitrogen 10 mg/dL (7-18); Bicarbonate 26 mmol/L (21-32); Bilirubin Total 0.9 mg/dL (0.2-1.0); Glucose Level 116 mg/dL (74-106); Potassium 3.7 mmol/L (3.5-5.1); Protein, Total 6.3 g/dL (6.4-8.2); Sodium Level 143 mmol/L (136-145)
[2018-09-05] MEDS: VANCOMYCIN 1.25 GM in NA CHLORIDE 0.9% 250 ML IVPB SCH (10:00)
--- NOTE | 2018-09-05 10:20 | RAD REPORT ---
EXAM DESCRIPTION: RAD - Chest Single View - 09/05/2018 9:42 am CLINICAL HISTORY: Congestion, wheezing, cough COMPARISON: September 03 TECHNIQUE: AP portable chest image was obtained 0927 hours . FINDINGS: Chronic interstitial lung disease is evident. Interstitial pattern is slightly reduced fro m the comparison. No new infiltrate or mass. No vascular engorgement. Heart size is normal for portab le imaging appear left costophrenic angle blunting remains. Patient likely has a minimal left pleural effusion. No pneumothorax. No acute bony abnormality seen. No acute aortic findings suspected. Right upper extremity PICC line is in place in good position. IMPRESSION: Chronic interstitial lung disease is present. Interstitial pattern has diminished in pro minence.
[2018-09-05] MEDS: VANCOMYCIN 1.5 GM in NA CHLORIDE 0.9% 500 ML IVPB SCH (11:59)
--- NOTE | 2018-09-05 14:12 | P.PN ---
Subjective Date of Service: 09/05/18 Primary Care Provider: Dr. Guidry; Cardiology-Dr. Russell; Neurology-Dr. Lim Chief Complaint: hip fracture Subjective: Doing well, Demented Physical Examination - Vital Signs Temperature: 97.9 F Blood Pressure: 124/57 Pulse: 89 Respirations: 18 Pulse Ox (%): 94 - Physical Exam General: Alert, Cooperative, Demented HEENT: Atraumatic Neck: Supple Respiratory: Crackles/rales Cardiovascular: Normal pulses, Regular rate/rhythm Gastrointestinal: Normal bowel sounds, Soft and benign, Non-distended, No masses , No rebound, No guarding Musculoskeletal: No erythema, No tenderness, No warmth Integumentary: No tenderness/swelling, No erythema, No warmth, No cyanosis Neurological: Normal speech, Normal strength at 5/5 x4 extr, Normal tone, Dementia - Studies Medications List Reviewed: Yes Assessment & Plan Discharge Plan: Transfer Plan to discharge in: 24 Hours Physician Review Additional Text: Impression: Fall leading to left intertrochanteric femur fracture status post IM nail fixation POD #5 Parkinson's disease with mild dementia complicated with encephalopathy likely postsurgical delirium UTI with culture positive for methicillin-resistant Staph aureus Dysphagia with failed modified barium swallow showing possible large Zenker's diverticulum with high risk for aspiration Acute on chronic Anemia likely of chronic disease and moderate malnutrition with Iron/B12 deficiency Chronic interstitial lung disease Hypothyroidism Hypertension Depression GERD Acute renal insufficiency likely from dehydration Plan: Fall leading to left intertrochanteric femur fracture status post IM nail fixation POD #5: Patient stable from orthopedic standpoint. Will continue with physical therapy. Continue with orthopedic recommendations and follow up. Patient on DVT prophylaxis. Encourage incentive spirometer. Currently awaiting bed to high-level of care facility to address dysphagia/large Zenker's diverticulum. 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 Mild delirium still noted but mild an appropriate. Neurology has adjusted her medication. Topamax discontinued. Parkinson's medication has been decreased. UTI with culture positive for methicillin-resistant Staph aureus: Patient found to have methicillin-resistant UTI. Patient started on vancomycin. Patient will continue with 7 day treatment. PICC line now in place. Patient on TPN. Infectious disease consulted for further recommendation. Acute on Chronic Anemia likely of chronic disease and moderate malnutrition with Iron/B12 deficiency: Patient has received 2 units of blood. Anemia improved and stable. Will continue monitor closely. Will continue with iron and B12 supplementation thereafter. Will need to monitor hemoglobin closely. 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 Case discussed at length with speech pathology and ENT recently. ENT help arrange transfer to [facility]. Currently awaiting transfer to [facility]-Dr. Adán Smith to further evaluate and treat the Zenker's diverticulum. Patient will likely have PEG tube placed at that time as well. Patient to be transferred to [facility] when bed available. Continue with TPN. Dietary and pharmacy to adjust. Chronic interstitial lung disease: X-ray reviewed. Encourage incentive spirometer. Hypothyroidism: Will continue with her medication. Hypertension: Will provide medication. Will provide IV medication as tolerated. Depression: Will continue with home medication. GERD: Will continue PPI. Acute renal sufficiency likely from dehydration: Overall stable. Dc IV fluids. Time Spent Managing Pts Care (In Minutes): 55
--- NOTE | 2018-09-05 14:22 | P.PN ---
Date of Service: 09/05/18 S: PATIENT AWAKE, ALERT ASKING QUESTIONS ABOUT PENDING TRANSFER. ASKED ABOUT TODAYS DATE Sep.07 will be ANNIVERSARY. O: AFEBRILE, VSS, HGB UP AT 10.9; BANDAGE CLEAN DRY AND INTACT; NO COMPLAINTS OF PAIN. A: TRANSFER PENDING TO HIGHER LEVEL WHEN BED AVAILABLE. PATIENT AWARE OPERATION FOR THROAT PLANNED, HAS BEEN COUNTING DAYS WITHOUT FOOD. DISCUSSED TPN BAG HANGING. P: CONTINUE WITH MOBILIZATION POSSIBLE AND TOLERATED.
[2018-09-05] MEDS: MORPHINE 2 MG/ML SYR IV PRN (15:44)
[2018-09-05] MEDS: AA 5%/D20W/ELECTROLYTES-TPN 2,000 ML, Lipids 20% 250 ML with MULTIVITAMINS INJ 10 ML IV SCH ×6 (17:00→18:57)
[2018-09-05] MEDS: ENOXAPARIN 40 MG/0.4 ML SQ SCH (17:10)
[2018-09-05] MEDS: QUETIAPINE 25 MG TAB PO SCH (20:13)
--- NOTE | 2018-09-05 22:24 | PN ---
Date of Progress Note: 09/05/2018 Time Seen: 16:30. Reason: Parkinson, dysphagia. Interval History: The patient looks better today. More alert, more interactive. Should be transferr ing up to the [facility] either tonight or in the morning. Physical Examination: General: She is awake, alert, conversant, recognizes me and her daughters. HEENT: Ocular motion full. Bonilla full. Neuro: Upper extremity strength full. Moderate cogwheeling at the wrists and elbows. No resting tr emor. Lower extremities greater than 4+. She was able to ambulate today with Physical Therapy and s it in a chair for 4 hours. Impression: Parkinson disease. Plan: Continue supportive care. Going to be transferred up to the [facility] for potential surg ical intervention on the Zenker diverticula. We will continue to follow with you. ANGUS Voice ID: [id number] Report ID: [id number]
[2018-09-06] MEDS: LEVOTHYROXINE SOD 0.075 MG TAB PO SCH (05:17)
[2018-09-06] MEDS: INSULIN -REGULAR HUMAN 50 UNIT/0.5 ML ML SQ SCH ×5 (05:22→18:00)
[2018-09-06 05:48] LABS: Absolute Monocytes 0.6 K/uL (0.1-1.3); Basophils % 0.7 % (0-1.3); Eosinophils % 7.9 % (0-4.4); Hematocrit 30.4 % (36.0-45.0); Lymphocytes % 13.7 % (15.3-44.8); MCH 30.1 pg (27.0-35.0); MCV 89.5 fL (80-100); MPV 8.2 fL (7.6-11.3); Monocytes % 8.7 % (3.3-12.3)
[2018-09-06 06:09] LABS: BUN Blood Urea Nitrogen 14 mg/dL (7-18); Bicarbonate 26 mmol/L (21-32); Glucose Level 105 mg/dL (74-106); Magnesium 2.1 mg/dL (1.8-2.4); Potassium 3.6 mmol/L (3.5-5.1); Sodium Level 145 mmol/L (136-145)
[2018-09-06] MEDS ORDERED: KCL 20 MEQ/100 mL IVPB 20 MEQ/100 ML BAG IV SCH (08:00)
[2018-09-06] MEDS: RIVASTIGMINE 9.5 MG/24 HR PATCH TD SCH (08:08)
[2018-09-06] MEDS: PANTOPRAZOLE 40 MG INJ IVP SCH (08:09)
[2018-09-06] MEDS: VENLAFAXINE HCL XR 75 MG CAP PO SCH (09:00)
[2018-09-06] MEDS: HOME MED 1 EA UNK (Cyclosporine [Restasis] 1 DROP) EACH EYE SCH ×2 (09:00→20:35)
[2018-09-06] MEDS: PARoxetine HCl 10 MG TAB PO SCH (09:00)
[2018-09-06] MEDS: LOSARTAN POTASSIUM 50 MG TABLET PO SCH (09:00)
[2018-09-06] MEDS: ASPIRIN 81 MG CHEWABLE TABLET PO SCH (09:00)
[2018-09-06] MEDS: BUMETANIDE 1 MG TABLET PO SCH (09:00)
[2018-09-06] MEDS: CARBIDOPA/LEVODOPA 25/250 TAB PO SCH ×3 (09:00→20:37)
[2018-09-06] MEDS: SOD FERRIC GLUC COMPLX/SUCROSE 125 MG in NA CHLORIDE 0.9% 100 ML IV SCH (10:13)
[2018-09-06] MEDS: VANCOMYCIN 1.5 GM in NA CHLORIDE 0.9% 500 ML IVPB SCH (11:46)
[2018-09-06 15:10] VITALS: BP 134/60; TEMP 98.4
--- NOTE | 2018-09-06 16:28 | P.PN ---
Subjective Date of Service: 09/06/18 Primary Care Provider: Dr. Guidry; Cardiology-Dr. Russell; Neurology-Dr. Lim Chief Complaint: hip fracture Subjective: Tolerating diet, Improving, Working w/ PT, Doing well Review of Systems 10-point ROS is otherwise unremarkable Physical Examination - Vital Signs Temperature: 98.4 F Blood Pressure: 134/60 Pulse: 93 Respirations: 16 Pulse Ox (%): 98 - Physical Exam General: Alert, In no apparent distress HEENT: Atraumatic, PERRLA, EOMI Neck: Supple, JVD not distended Respiratory: Clear to auscultation bilaterally, Normal air movement Cardiovascular: Regular rate/rhythm, Normal S1 S2 Gastrointestinal: Normal bowel sounds, No tenderness Musculoskeletal: No tenderness Integumentary: No rashes Neurological: Normal speech, Normal tone, Normal affect Lymphatics: No axilla or inguinal lymphadenopathy - Studies Medications List Reviewed: Yes Assessment And Plan Discharge Plan: Other Plan to discharge in: 48 Hours - Code Status/Comfort Care Code Status Assessed: Yes Physician Review Additional Text: Impression: Fall leading to left intertrochanteric femur fracture status post IM nail fixation POD #5 Parkinson's disease with mild dementia complicated with encephalopathy likely postsurgical delirium UTI with culture positive for methicillin-resistant Staph aureus Dysphagia with failed modified barium swallow showing possible large Zenker's diverticulum with high risk for aspiration Acute on chronic Anemia likely of chronic disease and moderate malnutrition with Iron/B12 deficiency Chronic interstitial lung disease Hypothyroidism Hypertension Depression GERD Acute renal insufficiency likely from dehydration Plan: Fall leading to left intertrochanteric femur fracture status post IM nail fixation POD #5: Patient stable from orthopedic standpoint. Will continue with physical therapy. Continue with orthopedic recommendations and follow up. Patient on DVT prophylaxis. Encourage incentive spirometer. Currently awaiting bed to high-level of care facility to address dysphagia/large Zenker's diverticulum. 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 Mild delirium still noted but mild an appropriate. Neurology has adjusted her medication. Topamax discontinued. Parkinson's medication has been decreased. UTI with culture positive for methicillin-resistant Staph aureus: Patient found to have methicillin-resistant UTI. Patient started on vancomycin. Patient will continue with 7 day treatment. PICC line now in place. Patient on TPN. Infectious disease consulted for further recommendation. Acute on Chronic Anemia likely of chronic disease and moderate malnutrition with Iron/B12 deficiency: Patient has received 2 units of blood. Anemia improved and stable. Will continue monitor closely. Will continue with iron and B12 supplementation thereafter. Will need to monitor hemoglobin closely. 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 Case discussed at length with speech pathology and ENT recently. ENT help arrange transfer to [facility]. Currently awaiting transfer to [facility]-Dr. Adán Smith to further evaluate and treat the Zenker's diverticulum. Patient will likely have PEG tube placed at that time as well. Patient to be transferred to [facility] when bed available. Continue with TPN. Dietary and pharmacy to adjust. Chronic interstitial lung disease: X-ray reviewed. Encourage incentive spirometer. Hypothyroidism: Will continue with her medication. Hypertension: Will provide medication. Will provide IV medication as tolerated. Depression: Will continue with home medication. GERD: Will continue PPI. Acute renal sufficiency likely from dehydration: Overall stable. Dc IV fluids. Critical Care: No
[2018-09-06] MEDS: ENOXAPARIN 40 MG/0.4 ML SQ SCH (17:08)
[2018-09-06] MEDS: AA 5%/D20W/ELECTROLYTES-TPN 2,000 ML, Lipids 20% 250 ML with MULTIVITAMINS INJ 10 ML IV SCH ×3 (17:08)
[2018-09-06] MEDS: QUETIAPINE 25 MG TAB PO SCH (20:36)
[2018-09-06 21:14] VITALS: O2SAT 98
--- NOTE | 2018-09-07 20:04 | CON ---
Date of Consultation: 09/06/2018 Subjective: The patient is an 87-year-old female. I was consulted for urinary tract infection and M RSA infection. The patient has a significant history of Parkinson disease, ambulatory with a walker, depression and dementia, coming in with left-sided hip pain. CT scan showed hip fractures. A urine test done at admission showed WBC of 10 to 20, and the micro data was growing MRSA of 10:100,000. T he patient was during hospitalization treated with antibiotic vancomycin and discharged on oral antib iotic. The patient is not a good historian. Most of the history was obtained through medical record . Past Medical History: Dementia, depression, lives at assisted living, anxiety, Parkinson's, hypothyr oidism, hypertension. Social History: Nonsmoker and nondrinker. Family History: Noncontributory. Medications: Vancomycin. See MARs for other medication. Allergies: NO KNOWN DRUG ALLERGIES. Review of Systems: Unable to obtain. Physical Examination: General: This is an 87-year-old female, lying in bed, not in any acute cardiopulmonary distress. Vital Signs: Temperature 98, pulse 93, respirations 16, blood pressure 134/60. HEENT: Unremarkable. Neck: Supple. Lungs: Basal crackles. Heart: S1, S2. Regular. Abdomen: Soft and nontender. Bowel sounds positive. Extremities: Left hip discomfort. Laboratory Data: Shows WBC 7.2, hemoglobin 10.2, platelets are 314. Chemistry shows sodium 145, pot assium 3.6, chloride 113, bicarb 26, BUN 14, creatinine 0.2, glucose 105. Assessment And Plan: An 87-year-old female with recent hip fracture, coming in with incidental findi ng of urinary tract infection secondary to MRSA. Total course of 7 days antibiotic treatment. The p atient already got vancomycin. We will follow the patient as needed. Thank you Dr. Murrieta for consu lt. NF/MODL Voice ID: [id number] Report ID: [id number]
--- NOTE | 2018-09-08 18:26 | P.DS ---
Admission Date: 08/30/18 Discharge Date: 09/08/18 Primary Care Provider: Dr. Guidry; Cardiology-Dr. Russell; Neurology-Dr. Lim Disposition: TRANSFER TO [facility] Discharge Condition: FAIR Reason for Admission: hip fracture Consultations: Orthodepics - Stefano ENT - Cabrera Brief History of Present Illness: Ms Han is an 87 yeas old woman with history of Parkinson's disease, ambulatory with a walker, Anxiety, depression, Dementia, who lives in an assisted living facility. Today while she was walking, fell to the floor, landing over her left side. Immediately she was complaining of left hip pain, and was not able to bear weight on her left leg. The patient does not know how she fell. There is no obvious head injury, CT head/cervical neck showed no acute abnormalities. Left hip XR consistent with a comminuted intertrochanteric femoral fracture. Hospital Course: Discharge Diagnosis: Fall leading to left intertrochanteric femur fracture status post IM nail fixation Parkinson's disease with mild dementia complicated with encephalopathy likely postsurgical delirium UTI with culture positive for methicillin-resistant Staph aureus Dysphagia with failed modified barium swallow showing possible large Zenker's diverticulum with high risk for aspiration Acute on chronic Anemia likely of chronic disease and moderate malnutrition with Iron/B12 deficiency Chronic interstitial lung disease Hypothyroidism Hypertension Depression GERD Acute renal insufficiency likely from dehydration Hospital Course: Overall during the hospital stay patient remained stable Patient was initially admitted to the hospital status post fall and was found to have left intertrochanteric femur fracture. Orthopedic surgeon was consulted here in the hospital. Patient had intramedullary nail fixation done. Patient tolerated the procedure well and was doing well overall. Patient after the surgery and had a modified barium swallow done here for dysphagia. 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 ENT was consulted who recommended the patient to be transferred to [facility] [place] and the specialist for the surgery for Zenker's diverticulum. Patient was accepted at [facility] and thus was transferred there for further care. While here in the hospital patient was also found to have UTI with urine culture positive for MRSA. Patient was started on vancomycin and completed a 7 day dosage here in the hospital. Patient also had acute on chronic anemia most likely secondary to her vitamin B12 and iron deficiency. Patient did receive 2 units of blood while here in the hospital. No other complications were noted term anemia standpoint on other chronic conditions remained stable while here in the hospital Vital Signs/Physical Exam: Temp Pulse Resp BP Pulse Ox 98.4 F 93 H 16 134/60 98 09/06/18 16:28 09/06/18 16:28 09/06/18 16:28 09/06/18 16:28 09/06/18 16:28 General: Alert, In no apparent distress HEENT: Atraumatic, PERRLA, EOMI Neck: Supple, JVD not distended Respiratory: Clear to auscultation bilaterally, Normal air movement Cardiovascular: Regular rate/rhythm, Normal S1 S2 Gastrointestinal: Normal bowel sounds, No tenderness Musculoskeletal: No tenderness Integumentary: No rashes Neurological: Normal speech, Normal tone, Normal affect Lymphatics: No axilla or inguinal lymphadenopathy Laboratory Data at Discharge: WBC 7.2 K/uL (4.3-10.9) D 09/06/18 05:15 Hgb 10.2 g/dL (12.0-15.0) L 09/06/18 05:15 Hct 30.4 % (36.0-45.0) L 09/06/18 05:15 Plt Count 314 K/uL (152-406) 09/06/18 05:15 PT 12.7 SECONDS (9.5-12.5) H 08/30/18 21:40 INR 1.08 08/30/18 21:40 Sodium 145 mmol/L (136-145) 09/06/18 05:15 Potassium 3.6 mmol/L (3.5-5.1) 09/06/18 05:15 BUN 14 mg/dL (7-18) 09/06/18 05:15 Creatinine 0.60 mg/dL (0.55-1.3) 09/06/18 05:15 Glucose 105 mg/dL (74-106) 09/06/18 05:15 Magnesium 2.1 mg/dL (1.8-2.4) 09/06/18 05:15 Total Bilirubin 0.9 mg/dL (0.2-1.0) 09/05/18 09:13 AST 11 U/L (15-37) L 09/05/18 09:13 ALT 11 U/L (12-78) L 09/05/18 09:13 Alkaline Phosphatase 80 U/L (45-117) 09/05/18 09:13 Home Medications: Levothyroxine Sodium 150 mcg PO DAILY 07/11/15 Losartan Potassium 100 mg PO DAILY 07/11/15 Meloxicam 7.5 mg PO DAILY 07/11/15 Paroxetine HCl 1.5 tab PO DAILY 07/11/15 Difluprednate [Durezol] 1 drop LEFT EYE EVERY 7TH DAY 07/15/15 Aspirin Chewable [Aspirin Chewable*] 81 mg PO DAILY #30 tab.chew 07/24/15 Acetaminophen [Tylenol] 325 mg PO QIDP PRN 08/31/18 Bumetanide 0.5 mg PO DAILY 08/31/18 Carbidopa/Levodopa 25-250 [Sinemet 25-250] 1 tab PO QID 08/31/18 Cetirizine HCl 10 mg PO DAILY 08/31/18 Cyclosporine [Restasis] 1 drop EACH EYE BID 08/31/18 Midodrine HCl 2.5 mg PO BID 08/31/18 Quetiapine Fumarate [Seroquel] 0.5 tab PO BEDTIME 08/31/18 Rivastigmine Patch [Exelon 9.5 mg Patch] 9.5 mg TD DAILY 08/31/18 Topiramate [Topamax] 25 mg PO BEDTIME 08/31/18 Venlafaxine HCl [Venlafaxine HCl ER] 2 cap PO DAILY 08/31/18 Followup: Aman Stallworth MD [ACTIVE - CAN ADMIT] - Carolyn Rees MD [ACTIVE - CAN ADMIT] - Sundar Agarwal MD [ACTIVE - CAN ADMIT] -
== END 2018-09-06 21:15 | disposition short-term general hospital (02) | DRG 481 ==
LOC: ER 20:43 → 2ND 23:40
PROVIDERS: ADMIT Internal Medicine; ATTEND Family Medicine
PROC: 0QS706Z Reposition Left Upper Femur with Intramedullary Internal Fixation Device, Open Approach (ICD-10-PCS; principal; 2018-08-31 12:15)
PROC: 30233N1 Transfusion of Nonautologous Red Blood Cells into Peripheral Vein, Percutaneous Approach (ICD-10-PCS; 2018-09-02)
PROC: 02HV33Z Insertion of Infusion Device into Superior Vena Cava, Percutaneous Approach (ICD-10-PCS; 2018-09-02)
PROC: 3E0336Z Introduction of Nutritional Substance into Peripheral Vein, Percutaneous Approach (ICD-10-PCS; 2018-09-02)
DX: S72.142A Displaced intertrochanteric fracture of left femur, initial encounter for closed fracture (principal); N39.0 Urinary tract infection, site not specified; E44.1 Mild protein-calorie malnutrition; J84.9 Interstitial pulmonary disease, unspecified; G93.49 Other encephalopathy; W18.39XA Other fall on same level, initial encounter; Y93.01 Activity, walking, marching and hiking; Y92.128 Other place in nursing home as the place of occurrence of the external cause; I10 Essential (primary) hypertension; F32.9 Major depressive disorder, single episode, unspecified; F41.9 Anxiety disorder, unspecified; G20 Parkinson's disease; F02.80 Dementia in other diseases classified elsewhere, unspecified severity, without behavioral disturbance, psychotic disturbance, mood disturbance, and anxiety; B95.62 Methicillin resistant Staphylococcus aureus infection as the cause of diseases classified elsewhere; D53.9 Nutritional anemia, unspecified; R13.10 Dysphagia, unspecified; K22.5 Diverticulum of esophagus, acquired; E03.9 Hypothyroidism, unspecified; K21.9 Gastro-esophageal reflux disease without esophagitis; N28.9 Disorder of kidney and ureter, unspecified; E86.0 Dehydration; D51.9 Vitamin B12 deficiency anemia, unspecified; R60.9 Edema, unspecified; Z66 Do not resuscitate; M47.892 Other spondylosis, cervical region
CPT/HCPCS: 36415; 36430; 70450; 71045; 72125; 73530; 74230; 80048; 80053; 80202; 81003; 81015; 82607; 82728; 82962; 83540; 83735; 84132; 84466; 85014; 85018; 85025; 85610; 86850; 86900; 86901; 87077; 87086; 87088; 87186; 93005; 96374; 97163; 97530; 99285; C9113; J0360; J0690; J0696; J1650; J1940; J2270; J2704; J2916; J3010; J3420; J7030; P9016

== ENCOUNTER 2018-12-24 23:01 | Emergency (ER) | payer OTHER ==
--- OUTSIDE RECORDS SUMMARY | 2018-12-24 23:04 | XMS REPORT | Summary of Care ---
:1930 Author Organization [facility] Address [address] [place] [id number] Encounter HQ Hardeep_stephanie(SANTO) [id number] Date(s): 07/23/17 - 07/24/[address] Professional Services provided by [facility] [place] [address]- Discharge Diagnosis: Injury To Ligament Of Cervical Spine Discharge Disposition: Home or Self Care Attending Physician: Babs Lagos MD Admitting Physician: Cachorro Rob MD Vital Signs Most recent to oldest 1 2 3 [Reference Range]: Height 157.48 cm (07/23/17 10:58 PM) Temperature Oral 98.7 DegF 98.5 DegF 98 DegF [96.4-99.1 DegF] (07/24/17 4:53 PM) (07/24/17 8:05 AM) (07/24/17 6:19 AM) Blood Pressure 190/79 mmHg 184/83 mmHg 208/96 mmHg [90-140/60-90 mmHg] *HI* *HI* *HI* (07/24/17 4:53 PM) (07/24/17 3:00 PM) (07/24/17 1:36 PM) Respiratory Rate [14-20 14 BRMIN 13 BRMIN 16 BRMIN BRMIN] (07/24/17 11:30 AM) *LOW* (07/24/17 8:05 AM) (07/24/17 10:26 AM) Peripheral Pulse Rate 88 bpm [60-100 bpm] (07/23/17 10:58 PM) Weight 113.636 kg (07/23/17 10:58 PM) Body Mass Index 45.82 m2 (07/23/17 10:58 PM) Problem List Condition Effective Dates Status Health Status Informant HTN (hypertension)(Confirmed) Resolved Parkinson disease(Confirmed) Resolved Allergies, Adverse Reactions, Alerts Substance Reaction Severity Status NKDA Active Medications acetaminophen 650 mg, 2 tab, Route: PO, Drug form: TAB, ONCE, Dosing Weight 113.636, kg, PRN Pain Score 1-5, Priority: STAT, Start date: 07/24/17 5:02:00 CDT Notes: Do not exceed 4 gm/day. (Same as: Tylenol) Start Date: 07/24/17 Stop Date: 07/24/17 Status: CompletedAtivan 0.5 mg, Route: IV, ONCE, Dosing Weight 113.636, kg, Start date: 07/24/17 11:56: 00 CDT, Stop date: 07/24/17 11:56:00 CDT Start Date: 07/24/17 Stop Date: 07/24/17 Status: CompletedfentaNYL 50 microgram, Route: IVP, ONCE, Dosing Weight 113.636, kg, Priority: STAT, Start date: 07/23/17 23:41:00 CDT, Stop date: 07/23/17 23:41:00 CDT Start Date: 07/23/17 Stop Date: 07/23/17 Status: Discontinuedlisinopril 10 mg, 1 tab, Route: PO, Drug form: TAB, ONCE, Dosing Weight 113.636, kg, Priority: STAT, Start date: 07/24/17 13:56:00 CDT, Stop date: 07/24/17 13:56:00 CDT Notes: (Same as: Prinivil, Zestril) Start Date: 07/24/17 Stop Date: 07/24/17 Status: CompletedOmnipaque 350mg/ml 141 mL, Route: IVP, Drug Form: SOLN, Dosing Weight 113.636, kg, ONCALL, STAT, Start date: 07/24/17 2:49:00 CDT, Duration: 1 doses or times, Dose=2.2ml/kg, Max obsp=[id number] -- "To be infused by RadiologyStaff ONLY" Start Date: 07/24/17 Stop Date: 07/24/17 Status: CompletedRocephin 1 gm, Route: IVPB, Drug form: PDR/INJ, ONCE, Dosing Weight 113.636, kg, Priority : STAT, Start date: 07/24/17 0:22:00 CDT, Duration: 1 doses or times, Stop date : 07/24/17 0:22:00 CDT, ABX Indication: Urinary Tract Infection Start Date: 07/24/17 Stop Date: 07/24/17 Status: CompletedSaline Flush 0.9% 10 mL, Route: IVP, Drug Form: INJ, Dosing Weight 113.636, kg, PRN, PRN Line Flush, Start date: 07/23/17 23:41:00 CDT, Duration: 30 day, Stop date: 08/22/17 22:40:00 LOBSTER CATCHER Notes: Same as: BD Posiflush Sterile Start Date: 07/23/17 Stop Date: 07/25/17 Status: DiscontinuedZofran 4 mg, Route: IVP, Drug form: INJ, ONCE, Dosing Weight 113.636, kg, Priority: STAT, Start date: 07/24/17 5:02:00 CDT, Stop date: 07/24/17 5:02:00 CDT Start Date: 07/24/17 Stop Date: 07/24/17 Status: Completed Results BLOOD BANK RESULTS Most recent to oldest [Reference Range]: 1 ABO/Rh O NEG *Unknown* (07/23/17 11:41 PM) Antibody Scrn Negative (07/23/17 11:41 PM) ELECTROLYTES Most recent to oldest [Reference Range]: 1 Sodium Lvl [135-145 mEq/L] 140 mEq/L (07/23/17 11:41 PM) Potassium Lvl [3.5-5.1 mEq/L] 5.0 mEq/L (07/23/17 11:41 PM) Chloride Lvl [95-109 mEq/L] 106 mEq/L (07/23/17 11:41 PM) CO2 [24-32 mEq/L] 28 mEq/L (07/23/17 11:41 PM) AGAP [10.0-20.0 mEq/L] 11.0 mEq/L (07/23/17 11:41 PM) CHEM PANEL Most recent to oldest [Reference Range]: 1 Creatinine Lvl [0.50-1.40 mg/dL] 0.71 mg/dL (07/23/17 11:41 PM) eGFR 77 mL/min/1.73m2 1 *NA* (07/23/17 11:41 PM) BUN [7-22 mg/dL] 20 mg/dL (07/23/17 11:41 PM) Glucose Lvl [70-99 mg/dL] 111 mg/dL *HI* (07/23/17 11:41 PM) Calcium Lvl [8.5-10.5 mg/dL] 9.5 mg/dL (07/23/17 11:41 PM) Lactic Acid Lvl [0.5-2.2 mMol/L] 1.2 mMol/L (07/23/17 11:41 PM) 1Result Comment: The eGFR is calculated using the CKD-EPI formula. In most young , healthy individualsthe eGFR will be >90 mL/min/1.73m2. The eGFR declines with age. An eGFR of 60-89 may be normal in some populations, particularly the elderly, for whom the CKD-EPI formula has not been extensively validated. Use of the eGFR is not recommended in the following populations: Individuals with unstable creatinine concentrations, including patients and those with serious co-morbid conditions. Patients with extremes in muscle mass or diet. The data above are obtained from the National Kidney Disease Education Program ( NKDEP) which additionally recommends that when the eGFR is used in patients with extremes of body mass index for purposesof drug dosing, the eGFR should be multiplied by the estimated BMI.URINE AND STOOL Most recent to oldest [Reference Range]: 1 UA Turbidity [Clear] Clear (07/23/17 11:41 PM) UA Color [Yellow] Yellow *NA* (07/23/17 11:41 PM) UA pH [5.0-8.0] 5.5 (07/23/17 11:41 PM) UA Spec Grav [<=1.030] 1.015 (07/23/17 11:41 PM) UA Glucose [Negative] Negative (07/23/17 11:41 PM) UA Blood [Negative] Moderate *ABN* (07/23/17 11:41 PM) UA Ketones [Negative] Negative *NA* (07/23/17 11:41 PM) UA Protein [Negative] Negative (07/23/17 11:41 PM) UA Urobilinogen [0.1-1.0 EU/dL] 0.2 EU/dL (07/23/17 11:41 PM) UA Bili [Negative] Negative *NA* (07/23/17 11:41 PM) UA Leuk Est [Negative] Moderate *ABN* (07/23/17 11:41 PM) UA Nitrite [Negative] Negative (07/23/17 11:41 PM) UA WBC [None Seen /HPF] 51-100 /HPF *ABN* (07/23/17 11:41 PM) UA RBC [0-2 /HPF] 3-5 /HPF *ABN* (07/23/17 11:41 PM) UA Bacteria [None Seen /HPF] Few /HPF (07/23/17 11:41 PM) UA Sq Epi [Few /LPF] Few /LPF (07/23/17 11:41 PM) UA Mucus [None Seen /LPF] Few /LPF (07/23/17 11:41 PM) HEMATOLOGY Most recent to oldest [Reference Range]: 1 WBC [3.7-10.4 K/CMM] 10.2 K/CMM (07/23/17 11:41 PM) RBC [4.20-5.40 M/CMM] 4.19 M/CMM *LOW* (07/23/17 11:41 PM) Hgb [12.0-16.0 g/dL] 13.4 g/dL (07/23/17 11:41 PM) Hct [36.0-48.0 %] 40.9 % (07/23/17 11:41 PM) MCV [80.0-98.0 fL] 97.5 fL (07/23/17 11:41 PM) MCH [27.0-31.0 pg] 31.9 pg *HI* (07/23/17 11:41 PM) MCHC [32.0-36.0 g/dL] 32.7 g/dL (07/23/17 11:41 PM) RDW [11.5-14.5 %] 15.7 % *HI* (07/23/17 11:41 PM) Platelet [133-450 K/CMM] 264 K/CMM (07/23/17 11:41 PM) MPV [7.4-10.4 fL] 7.2 fL *LOW* (07/23/17 11:41 PM) Segs [45.0-75.0 %] 83.1 % *HI* (07/23/17:41 PM) Lymphocytes [20.0-40.0 %] 9.4 % *LOW* (07/23/17:41 PM) Monocytes [2.0-12.0 %] 6.5 % (07/23/17 11:41 PM) Eosinophils [0.0-4.0 %] 0.7 % (07/23/17:41 PM) Basophils [0.0-1.0 %] 0.3 % (07/23/17 11:41 PM) Segs-Bands # [1.5-8.1 K/CMM] 8.4 K/CMM *HI* (07/23/17:41 PM) Lymphocytes # [1.0-5.5 K/CMM] 1.0 K/CMM (07/23/17 11:41 PM) Monocytes # [0.0-0.8 K/CMM] 0.7 K/CMM (07/23/17:41 PM) Eosinophils # [0.0-0.5 K/CMM] 0.1 K/CMM (07/23/17 11:41 PM) ACT (TEG) Rapid [86-118 seconds] 97 seconds (07/23/17:41 PM) Split Point Rapid 0.4 minutes *NA* (07/23/17:41 PM) R-time Rapid [0.4-0.7 minutes] 0.5 minutes (07/23/17:41 PM) K-time Rapid [0.6-2.3 minutes] 0.8 minutes (07/23/17:41 PM) Angle Rapid [64-80 degrees] 80 degrees (07/23/17:41 PM) Max Amplitude Rapid [52-71 mm] 70 mm (07/23/17:41 PM) G-value Rapid [5.0-11.6 K d/sc] 11.4 K d/sc (07/23/17:41 PM) Estimated % Lysis Rapid [0.0-7.5 %] 0.0 % (07/23/17:41 PM) Immunizations No data available for this section Procedures Procedure Date Related Diagnosis Body Site Tubal ligation Social History Social History Type Response Smoking Status Never smoker; Exposure to Tobacco Smoke None; Cigarette Smoking Last 365 Days No; Reg Smoking Cessation Counseling No Assessment and Plan Extracted from: Title: ORS SPINE UPDATE NOTE Author: Killian Srivastava MD Date: 07/24/17 ORS SPINE UPDATE NOTE 86yo F s/p fall sustaining R sided OC widening with possible ligamentous injury. - Spinal Precautions: Maintain C spine precautions - [place] J Brace AAT, uprights stable - no ligamentous injury on CC MRI - Pain control - Incentive Spirometry - Pending ORS surgeries: None - SCDs/TEDs - MRI Craniocervical junction. - Dispo: -- Patient will need to follow up with Dr. Rob in clinic 3 weeks s/p discharge -- ORS Spine to sign off -- Recommend Calcium citrate 1200 mg and Vitamin D3 2000 IU QD for bone healing - please page [place], [phone] with any questions at any time, if there is an emergency past 7PM call [phone]-BONE Killian Viveros III, MD PGY-3 Orthopaedic Surgery Pager#: [phone] MSO#: [id number]
--- OUTSIDE RECORDS SUMMARY | 2018-12-24 23:04 | XMS REPORT | Continuity of Care Document ---
:1930 Author Organization Interface Problems Problem Status Onset Classification Date Comments Source Date Reported ZENKERS Active 09/06/20 [facility] DIVERTICULUM 18 Medical Center Discharge 07/24/20 07/27/2017 [facility] Diagnosis: 17 Medical Injury To Center Ligament Of Cervical Spine CERVICAL INJURY Active 07/23/[address] Center HTN (<span Resolved Problem 07/27/2017 [facility] ID="[id number] Medical ">Confirmed</spa Center n>) Parkinson Resolved Problem 07/27/2017 [facility] disease [facility] Medications Medication Details Route Status Patient Ordering Order Source Instructions Provider Date Lisinopril 10 mg, 1 Inactive [facility] tab, Route: 017 Medical PO, Drug Center form: TAB, ONCE, Dosing Weight 113.636, kg, Priority: STAT, Start date: 07/24/17 13:56:00 CDT, Stop date: 07/24/17 13:56:00 CDTNotes: (Same as: Prinivil, Zestril) Ativan 0.5 mg, Inactive [facility] Route: IV, 017 Medical ONCE, Dosing Center Weight 113.636, kg, Start date: 07/24/17 11:56:00 CDT, Stop date: 07/24/17 11:56:00 CDT Acetaminophen 650 mg, 2 Inactive [facility] tab, Route: 017 Medical PO, Drug Center form: TAB, ONCE, Dosing Weight 113.636, kg, PRN Pain Score 1-5, Priority: STAT, Start date: 07/24/17 5:02:00 CDTNotes: Do not exceed 4 gm/day. (Same as: Tylenol) Zofran 4 mg, Route: Inactive [facility] IVP, Drug 017 Medical form: INJ, Center ONCE, Dosing Weight 113.636, kg, Priority: STAT, Start date: 07/24/17 5:02:00 CDT, Stop date: 07/24/17 5:02:00 CDT Iohexol 141 mL, Inactive [facility] Route: IVP, 017 Medical Drug Form: Welcome SOLN, Dosing Weight 113.636, kg, ONCALL, STAT, Start date: 07/24/17 2:49:00 CDT, Duration: 1 doses or times, Dose=2.2ml/k g, Max ceqt=640cp -- "To be infused by Radiology Staff ONLY" Rocephin 1 gm, Route: Inactive [facility] IVPB, Drug 017 Medical form: Welcome PDR/INJ, ONCE, Dosing Weight 113.636, kg, Priority: STAT, Start date: 07/24/17 0:22:00 CDT, Duration: 1 doses or times, Stop date: 07/24/17 0:22:00 CDT, ABX Indication: Urinary Tract Infection Fentanyl 50 Inactive [facility] microgram, 017 Medical Route: IVP, Center ONCE, Dosing Weight 113.636, kg, Priority: STAT, Start date: 07/23/17 23:41:00 CDT, Stop date: 07/23/17 23:41:00 CDT Saline Flush 10 mL, No Longer [facility] 0.9% Route: IVP, Active 017 Medical Drug Form: Welcome INJ, Dosing Weight 113.636, kg, PRN, PRN Line Flush, Start date: 07/23/17 23:41:00 CDT, Duration: 30 day, Stop date: 08/22/17 22:40:00 CSTNotes: Same as: BD Posiflush Sterile Allergies, Adverse Reactions, Alerts Substance Category Reaction Severity Reaction Status Date Comments Source type Reported Immunizations Immunization Date Given Site Status Last Updated Comments Source Results Order Name Results Value Reference Date Interpretation Comments Source Range Chest 1view Chest 1view EXAM: XR CHEST 1 VIEW 09/12 - [facility] DX /2017 - [facility] DATE: 09/12/2018 9:11 AM CLERK OPERATOR Read by: Janusz Ferrer MD Dictated Date/time: 09/12/18 20:33 Electronically Signed by: Janusz Ferrer MD 09/12/18 20:34 FINAL REPORT INDICATION: - Confirm PICC line placement COMPARISON: September 05, 2018 TECHNIQUE: AP chest IMPRESSION: 1. Again seen is right upper extremity PICC with tip projects over the mid SVC. 2. Hyperinflation of both lungs/underlying COPD. Mild bibasilar subsegmental atelectatic changes. 3. Costophrenic sulci are sharp. 4. Cardiomediastinal silhouette is mildly enlarged. Aortic atherosclerotic disease. 5. Osseous structures are stable. Barium Barium EXAM: FLUOROSCOPY MODIFIED BARIUM SWALLOW 09/07 - [facility] swallow DX swallow /2017 - Medical EXAM: BARIUM ESOPHAGRAM WITH SINGLE CONTRAST. This report was dictated by a Stator Winder/Fellow/Physician Food Service Agent. I have personally Center reviewed the images as well as the interpretation and agree with the findings. Read by: Gilson Ellington MD Resident/Fellow/ Physician Food Service Agent: Gilson Ellington MD Dictated Date/time: 09/07/18 14:40 DATE: 09/07/2018 7:26 AM CLERK OPERATOR Electronically Signed by: Eduar Doll MD 09/07/18 15:18 FINAL REPORT INDICATION: - Zenker's diverticulum. COMPARISON: None. TECHNIQUE: Oral barium contrast of differing consistencies was given to the patient to assess swallowing mechanism. The study was performed in conjunction with speech pathology. FLUOROSCOPY TIME: 1 minute 7 seconds DISCUSSION: The patient was given barium contrast of different consistencies. No aspiration was seen with thin, nectar, or pudding. The oral pharyngeal phase of swallowing was abnormal with a delay in initiation of swallow. There was slight oral incontinence with leakage of contrast into the pharynx. There was pooling in the valleculae and contrast was seen entering a upper esophageal diverticulum. Contrast reflu xed out of the diverticulum and brief shallow penetration was observed. During the esophagram the patient was positioned onto the examination table at 15 degrees as she was unable to stand due to a left femoral neck fracture. The patient complained of significant pain and h ad difficulty swallowing from a recumbent position. Oral contrast was given via cup and a diverticulum located in the upper esophagus and measuring approximately 2.5 cm x 2.7 cm was seen. The diverticul um extends towards the left and contrast freely refluxed from it. There were no strictures in the upper, mid, or distal esophagus and contrast easily passed through the lower esophageal sphincter and into the stomach. IMPRESSION: 1. 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 No esophageal strictures are seen. 2. No aspiration, however there was reflux from the diverticulum and shallow penetration of thin and pudding consistency barium. 3. Please also see detailed chart note by speech pathology. Esophagus Esophagus BA EXAM: FLUOROSCOPY MODIFIED BARIUM SWALLOW 09/07 - [facility] BA swallow swallow /2017 - Medical function function EXAM: BARIUM ESOPHAGRAM WITH SINGLE CONTRAST. This report was dictated by a Stator Winder/Fellow/Physician Food Service Agent. I have personally Center video DX video DX reviewed the images as well as the interpretation and agree with the findings. Read by: Gilson Ellington MD Resident/Fellow/ Physician Food Service Agent: Gilson Ellington MD Dictated Date/time: 09/07/18 14:40 DATE: 09/07/2018 7:26 AM CLERK OPERATOR Electronically Signed by: Eduar Doll MD 09/07/18 15:18 FINAL REPORT INDICATION: - Zenker's diverticulum. COMPARISON: None. TECHNIQUE: Oral barium contrast of differing consistencies was given to the patient to assess swallowing mechanism. The study was performed in conjunction with speech pathology. FLUOROSCOPY TIME: 1 minute 7 seconds DISCUSSION: The patient was given barium contrast of different consistencies. No aspiration was seen with thin, nectar, or pudding. The oral pharyngeal phase of swallowing was abnormal with a delay in initiation of swallow. There was slight oral incontinence with leakage of contrast into the pharynx. There was pooling in the valleculae and contrast was seen entering a upper esophageal diverticulum. Contrast reflu xed out of the diverticulum and brief shallow penetration was observed. During the esophagram the patient was positioned onto the examination table at 15 degrees as she was unable to stand due to a left femoral neck fracture. The patient complained of significant pain and h ad difficulty swallowing from a recumbent position. Oral contrast was given via cup and a diverticulum located in the upper esophagus and measuring approximately 2.5 cm x 2.7 cm was seen. The diverticul um extends towards the left and contrast freely refluxed from it. There were no strictures in the upper, mid, or distal esophagus and contrast easily passed through the lower esophageal sphincter and into the stomach. IMPRESSION: 1. 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 No esophageal strictures are seen. 2. No aspiration, however there was reflux from the diverticulum and shallow penetration of thin and pudding consistency barium. 3. Please also see detailed chart note by speech pathology. Spine Spine EXAM: MRI CRANIOCERVICAL JUNCTION WITHOUT CONTRAST 07/24 - [facility] Cranio-junc Cranio-juncti /2017 - Medical tion wo on wo This report was dictated by a Stator Winder/ Fellow. I have personally reviewed the images as Center contrast contrast MRI well as the Resident's interpretation and agree with the findings. MRI DATE: 07/24/2017 at 12:03 PM Read by: Kirby Rios MD Resident: Kirby Rios MD Dictated Date/time: 07/24/17 14:17 Electronically Signed by: Marco Dill MD 07/24/17 15:50 FINAL REPORT INDICATION: Evaluate for craniocervical junction injury ADDITIONAL INFORMATION: None COMPARISON: Cervical spine radiograph 07/24/2017, C-spine CT 07/23/2017 TECHNIQUE: Dedicated, high-resolution thin section images of the craniocervical junction were acquired with T2 weighting in the axial and coronal planes. IV contrast: None. FINDINGS: Image quality is degraded by patient motion. On the comparison C-spine MRI, sagittal images show a small volume of fluid at the occipital odontoid junction, which is also seen on the present study, which may indicate an injury to the apical ligame nt. No prevertebral hematoma is identified. No other evidence of ligamentous injury is identified. IMPRESSION: Motion-limited examination. Trace fluid at the occipital odontoid interval may indicate the presence of an injury to the apical ligament. Spine Spine EXAM: XR CERVICAL SPINE 4 VIEWS 07/24 [facility] cervical 2 cervical 2 or - Medical or 3 view 3 view DX This report was dictated by a Stator Winder/ Fellow. I have personally reviewed the images as Center DX well as the Resident's interpretation and agree with the findings. DATE: 07/24/2017 4:48AM CDT Read by: Forrest John MD Resident: Forrest John MD Dictated Date/time: 07/24/17 05:19 Electronically Signed by: Sil Womack MD 07/24/17 06:33 FINAL REPORT INDICATION: - include craniocervical junction. UPRIGHTS ONLY with GULKANA J COMPARISON: None. TECHNIQUE: AP, open-mouth odontoid, swimmer's and lateral views of the cervical spine are obtained with a collar applied. FINDINGS: The cervical spine is visualized from base of occiput through the level of C7-T1. The chin is elevated. Vertebral body heights, disc heights and alignment are overall preserved. The occiput-C1 articulation is not well seen in 2 planes on the images provided. Previously identified asymmetric widening of the articulation between right occipital condyle and right lateral mass of C1 is not visua lized on this study. Mild multilevel degenerative disc disease is seen in the cervical spine at C4-C7. The maxillary teeth are missing. Multiple carious cavities and dental fillings are seen in the remaining mandibular teeth. No prevertebral or paraspinous soft tissue abnormality is identified. IMPRESSION: 1. A cervical collar is applied with the head slightly extended. 2. The previously identified asymmetry at the articulation of right occipital condyle with lateral mass of C1 is not documented in 2 planes in this radiographic series. 3. Multilevel mild cervical spondylosis at C4-C7. 4. Diffuse osteopenia. [place] SECTION: BLOOD BANK Antibody Scrn Negative 07/24 [facility] RESULTS [facility] (07/23/17 11:41 PM) [facility] BLOOD BANK ABO/Rh O NEG 07/24 [facility] /2016 [facility] CHEM PANEL Lactic Acid 1.2 mMol/L 0.5 - 2.2 07/24 [facility] Lvl /2016 [facility] ELECTROLYTE AGAP 11.0 meq/L 10.0 - 07/24 [facility] S 20.0 [facility] ELECTROLYTE Calcium Lvl 9.5 mg/dL 8.5 - 10.5 07/24 [facility] S /2016 [facility] ELECTROLYTE CO2 28 meq/L 24 - 32 07/24 [facility] S /2016 [facility] ELECTROLYTE eGFR 77 07/24 Result Comment: The eGFR is calculated using the CKD-EPI formula. In most young, healthy individuals the eGFR will be >90 mL/ min/1.73m2. The eGFR declines with age. An eGFR of 60-89 may be normal in [facility] mL/min/1. /2016 some populations, particularly the elderly, for whom the CKD-EPI formula has not been extensively validated. Use of the eGFR is not recommended in the following populations: [place] [address] Center Individuals with unstable creatinine concentrations, including patients and those with serious co-morbid conditions. Patients with extremes in muscle mass or diet. The data above are obtained from the National Kidney Disease Education Program (NKDEP) which additionally recommends that when the eGFR is used in patients with extremes of body mass index for purposes of drug dosing, the eGFR should be multiplied by the estimated BMI. ELECTROLYTE Glucose Lvl 111 mg/dL 70 - 99 07/24 [facility] ELECTROLYTE Creatinine 0.71 mg/dL 0.50 - 07/24 [facility] S Lvl 1.40 [facility] ELECTROLYTE Sodium Lvl 140 meq/L 135 - 145 07/24 [facility] ELECTROLYTE BUN 20 mg/dL 7 - 22 07/24 [facility] [address] ELECTROLYTE Chloride Lvl 106 meq/L 95 - 109 07/24 [facility]2016 [facility] ELECTROLYTE Potassium Lvl 5.0 meq/L 3.5 - 5.1 07/24 [facility] 2016 [facility] HEMATOLOGY Segs-Bands # 8.4 K/CMM 1.5 - 8.1 07/[address] HEMATOLOGY Lymphocytes # 1.0 K/CMM 1.0 - 5.5 07/[address] [place] [address] HEMATOLOGY Monocytes # 0.7 K/CMM 0.0 - 0.8 07/[address] [place] [address] HEMATOLOGY Lymphocytes 9.4 % 20.0 - 07/24 [facility] 40.0 [facility] HEMATOLOGY Eosinophils # 0.1 K/CMM 0.0 - 0.5 07/[address] HEMATOLOGY Basophils 0.3 % 0.0 - 1.0 07/[address] HEMATOLOGY Monocytes 6.5 % 2.0 - 12.0 07/24 [facility] HEMATOLOGY Eosinophils 0.7 % 0.0 - 4.0 07/[address] HEMATOLOGY Segs 83.1 % 45.0 - 07/24 [place] 75.0 [facility] HEMATOLOGY WBC 10.2 K/CMM 3.7 - 10.4 07/24 [facility]2016 [facility] HEMATOLOGY MPV 7.2 fL 7.4 - 10.4 07/[address] HEMATOLOGY MCHC 32.7 g/dL 32.0 - 07/24 [facility] 36.0 [facility] HEMATOLOGY Platelet 264 K/CMM 133 - 450 07/[address] HEMATOLOGY Hct 40.9 % 36.0 - 10/20 [place] 48.0 [facility] HEMATOLOGY RDW 15.7 % 11.5 - 07/24 14.5 [facility] HEMATOLOGY MCH 31.9 pg 27.0 - 07/24 31.0 [facility] HEMATOLOGY MCV 97.5 fL 80.0 - 07/24 [place] 98.0 [facility] HEMATOLOGY Hgb 13.4 g/dL 12.0 - 07/24 [place] 16.0 [facility] HEMATOLOGY RBC 4.19 M/CMM 4.20 - 07/24 [place] 5.40 [facility] HEMATOLOGY G-value Rapid 11.4 K 5.0 - 11.6 07/24 [facility] d/ [facility] HEMATOLOGY ACT (TEG) 97 s 86 - 118 07/24 [facility] HEMATOLOGY [place] 0.4 min 07/24 [facility] HEMATOLOGY Estimated % 0.0 % 0.0 - 7.5 07/24 [facility] Lysis [facility] HEMATOLOGY Angle Rapid 80 degrees 64 - 80 07/24 [facility] HEMATOLOGY Max Amplitude 70 mm 52 - 71 07/24 [facility] HEMATOLOGY R-time Rapid 0.5 min 0.4 - 0.7 07/24 [facility] HEMATOLOGY K-time Rapid 0.8 min 0.6 - 2.3 07/24 [facility] URINE AND UA Turbidity Clear Clear 07/24 [facility] (07/23/17 11:41 PM) [facility] URINE AND UA Color Yellow Yellow 07/24 [facility] Medical *NA* [facility] (07/23/17 11:41 PM) URINE AND UA pH 5.5 5.0 - 8.0 07/24 [facility] URINE AND UA Spec Grav 1.015 <=1.030 07/24 [facility] URINE AND UA Protein Negative Negative 07/24 [facility] (07/23/17 11:41 PM) [place] URINE AND UA Bili Negative Negative 07/24 [facility] *NA* [facility] (07/23/17 11:41 PM) URINE AND UA Blood Moderate Negative 07/24 [facility] *ABN* Center (07/23/17 11:41 PM) URINE AND UA 0.2 EU/dL 0.1 - 1.0 07/24 [facility] Urobilinogen /2016 [facility] URINE AND UA Nitrite Negative Negative 07/24 [facility] (07/23/17 11:41 PM) [facility] URINE AND UA Ketones Negative Negative 07/24 [facility] *NA* [facility] (07/23/17 11:41 PM) URINE AND UA Glucose Negative Negative 07/24 [facility] (07/23/17 11:41 PM) [facility] URINE AND UA Leuk Est Moderate Negative 07/24 [facility] *ABN* [facility] (07/23/17 11:41 PM) URINE AND UA RBC 3-5 /HPF 0 - 2 07/24 [facility] URINE AND UA Bacteria Few /HPF None Seen 07/24 [facility] STOOL /HPF [facility] URINE AND UA Mucus Few /LPF None Seen 07/24 [facility] /LPF [facility] URINE AND UA WBC 51-100 None Seen 07/24 [facility] /HPF /HPF [facility] URINE AND UA Sq Epi Few /LPF Few /LPF 07/24 [facility] [address] [place] [address] Chest/Abdom Chest/Abdomen EXAM: CT CHEST WITH CONTRAST 07/24 - [facility] en/Pelvis w /Pelvis w IV - [facility] IV contrast contrast CT EXAM: CT ABDOMEN AND PELVIS WITH CONTRAST This report was dictated by a Stator Winder/Fellow. I have personally reviewed the images as Center CT well as the Resident's interpretation and agree with the findings. Read by: Forrest John MD Resident: Forrest John MD Dictated Date/time: 07/24/17 03:52 DATE: 07/24/2017 2:43 AM CDT Electronically Signed by: Sil Womack MD 07/24/17 11:09 FINAL REPORT INDICATION: - T, L-spine COMPARISON: None TECHNIQUE: Volumetric CT acquisition of the chest, abdomen and pelvis following intravenous administration of contrast. Delayed imaging was then performed through the abdomen and pelvis, using a radiati on reduction technique. Axial, coronal and sagittal reformats. Contrast phases: Venous and delayed IV contrast: Oral contrast: None. DLP: mGy-cm [place] SECTION: ER FINDINGS: Lines and tubes: None. Lower Neck: Supraclavicular soft tissues are unremarkable. Thoracic Aorta and Mediastinum: No mediastinal hematoma or thoracic aortic injury. Normal heart and pericardium. Lungs, Pleura, Diaphragm: No pulmonary contusions. There is mosaic attenuation of the lung parenchyma, with hypoattenuating part demonstrating a paucity of vessels. This overall pattern can be seen with small airway disease, bronchiolitis or distal air trapping. A 5 mm peripheral pulmonary nodule is present in the right upper lobe at image 20 series 7. A 2.4 mm nodule is seen at the lateral segment of the right middle lobe at image 27 series 7. There is also a calcified granuloma at the posterior aspect of the left upper lobe. No pleural effusion or pneumothorax. No diaphragmatic injury. Liver and biliary tree: Normal. No injury. No biliary abnormality. Gallbladder: Normal. No CT evidence of gallstones. No injury. Pancreas: Normal. No injury. Spleen: Normal. No injury. Adrenals: Normal. No injury. Kidneys and ureters: Normal. No injury. Bladder: Decompressed around Norman catheter. No injury. Reproductive organs: Uterus and adnexa are not visualized. Gastrointestinal tract: Normal. No bowel injury. Normal appendix. Small hiatal hernia is present. Peritoneum and retroperitoneum: No fluid collections or free air. Lymph nodes: Normal. Vasculature: No vascular injury. Scattered aortoiliac atherosclerosis without flow-limiting stenosis. Spine/ Bones: The bones are osteopenic. No acute abnormality of the spine. No other bony injury. A cervical rib is present on the left at C7. Multilevel thoracic and lumbar spondylosis is noted with ass ociated vacuum disc phenomena, bridging osteophytes and Schmorl's nodes. There is posterior disc protrusion at L4-L5 and L5-S1 with associated grade 1 retrolisthesis of L4 over L5 and L5 over S1. Soft tissues: Normal. IMPRESSION: 1. No acute traumatic abnormality in the chest, abdomen or pelvis. 2. No acute fracture or malalignment. 3. Mosaic attenuation of the lung parenchyma. This pattern can be seen with small airway disease, bronchiolitis and and/or distal air trapping. Recommend clinical correlation. 4. 5 mm pulmonary nodule in the periphery of right upper lobe as well as 2.4 mm pulmonary nodule in right middle lobe. These should be followed according to Fleischner criteria provided below. 5. Multilevel degenerative disease in the thoracic and lumbar spine with posterior disc herniation at L4 and L5 and L5-S1 and associated spondylolisthesis. 6. Scattered atherosclerosis in an aorto- iliac and iliofemoral distribution. Nodule Follow Up for Low\\S\\ Follow Up for High Size* Risk Patients Risk Patients <4mm No follow up needed 12 mo; if unchanged, no f/u 4-6mm 12 mo; if unchanged, no f/u 6-12 mo., then 18 to 24 mo 6-8mm 6-12 mo., then 18-24 mo. 3-6 mo., then 18 to 24 mo >8mm 3,9,24 mo. consider 3,9,[address]/PET/Bx CT/PET/ Bx *Newly detected indeterminate nodule in persons > 35 years. Pts <35: consider single low-dose f/u CT in 6-12 months \\S\\Low risk=minimal or absent history of smoking and of other known risk factors Reference: Guidelines for Management of Small Pulmonary Nodules Dectected on CT: A Statement from the Fleischner Society. Radiol 2005: 237; [phone] Brain-Outsi Brain-Outside EXAM: CT FACIAL BONES WITHOUT CONTRAST, outside film interpretation 07/24 [facility] Consult Consult CT /2017 - [facility] CT Center DATE: 07/24/2017 12:43 AM CDT Read by: Sil Womack MD Dictated Date/time: 07/24/17 01:59 Electronically Signed by: Sil Womack MD 07/24/17 03:56 FINAL REPORT INDICATION: Following trauma transfer for higher level of care request for outside film interpretation of CT face without contrast performed on 07/23/2017 at 1551 hours from [facility] COMPARISON: None TECHNIQUE: Volumetric CT acquisition of the facial bones without contrast. Axial, coronal and sagittal reconstructions. IV contrast: None. DLP: 1535.8 mGy.cm DISCUSSION: Bones: Significant streak artifact is present in the oral cavity due to dental bridge. The maxillary teeth are absent. There is significant bone resorption of the maxillary alveolar ridge. No fracture or other acute bony abnormality is identified. The mandible is intact, and the temporomandibular joints are well-aligned. Sinuses: The paranasal sinuses are clear. Mastoid air cells are clear.. Soft tissues: No soft tissue abnormality or radiopaque foreign body is identified. Orbits: No abnormality of the globes is seen. There is no intraconal hematoma. Scleral calcifications are present. IMPRESSION: 1. There is no acute abnormality of the face identified. 2. The maxillary teeth are absent and there is secondary increased bone resorption of the maxillary alveolar ridge. Brain-Outsi Brain-Outside EXAM: CT BRAIN WITHOUT CONTRAST 07/24 [facility] de Consult Consult CT - [facility] CT [facility] DATE: 07/24/2017 12:43 AM CDT Read by: Rolly Zimmerman Dictated Date/time: 07/24/17 08:32 Electronically Signed by: Rolly Zimmerman 07/24/17 08:36 FINAL REPORT INDICATION: - outside study COMPARISON: Not available TECHNIQUE: Routine axial CT images of the brain were obtained IV contrast: None. FINDINGS: The sulci and the ventricles are prominent consistent with age-related volume loss. Patchy hypodensities are seen in the periventricular deep white matter related to chronic microvascular ischemic changes. No mass or mass effect is seen. No herniations are present. No intracranial hemorrhage is identified. IMPRESSION: No acute intracranial abnormality. Volume loss age related along with chronic microvascular ischemic changes. Agree with the outside report. Spine-Outsi Spine-Outside EXAM: CT CERVICAL SPINE WITHOUT CONTRAST 07/24 [facility] de Consult Consult CT - [facility] DATE: 07/24/2017 12:43 AM CDT Read by: Sil Womack MD Dictated Date/time: 07/24/17 01:43 Electronically Signed by: Sil Womack MD 07/24/17 01:58 FINAL REPORT INDICATION: Following trauma transfer for higher level of care request for outside film interpretation of CT cervical spine without contrast performed at 1551 hours from [facility] COMPARISON: None TECHNIQUE: Volumetric acquisition of the cervical spine without contrast. Axial, sagittal and coronal reconstructions. IV contrast: None. DLP: 1535.8 mGy.cm DISCUSSION: The spine is imaged from the skull base to the level of T1-T2. There is asymmetric widening at the anterior aspect of the articulation between right occipital condyle and the right lateral mass of C1. On the left the articulation between left occipital condyle and left lateral mass of C1 is congruent. The cervical elements appear intact. Marginal sclerosis and narrowing is present at the predental region of C1- 2. Also, there is narrowing of intervertebral disc spaces at C4-T1. Small calcified posterior disc osteophyte complexes are performed at C5-6 and C6-7. Facet arthropathy is present at C2-C5 greater on the left. Prevertebral soft tissues are normal. Paraspinal soft tissues are normal. A cervical rib is present on the left at C7. This rib is partially fused to the anterior lateral aspect of the left T1 rib. IMPRESSION: 1. Asymmetric widening at the anterior aspect of the articulation between right occipital condyle and right lateral mass of C1. This can be seen in the presence of ligamentous injury. Recommend MRI cervical spine for further evaluation. 2.. 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 Vital Signs Vital Sign Value Date Comments Source Temperature Oral (F) 98.7 F 07/24/2017 [facility] Systolic (mm Hg) 190 07/24/2017 [facility] Diastolic (mm Hg) 79 07/24/2017 [facility] Systolic (mm Hg) 184 07/24/2017 [facility] Diastolic (mm Hg) 83 07/24/2017 [facility] Systolic (mm Hg) 208 07/24/2017 [facility] Diastolic (mm Hg) 96 07/24/2017 [facility] Respitory Rate 14 07/24/2017 [facility] Respitory Rate 13 07/24/2017 [facility] Temperature Oral (F) 98.5 F 07/24/2017 [facility] Respitory Rate 16 07/24/2017 [facility] Temperature Oral (F) 98 F 07/24/2017 [facility] Height 157.48 cm 07/24/2017 [facility] BMI Calculated 45.82 07/24/2017 [facility] Weight 113.636 07/24/2017 [facility] Heart Rate 88 07/24/2017 [facility] Encounters Location Location Encounter Encounter Reason Attending ADM DC Status Source Details Type Number For Provider Date Date [facility] [id number] [place] 07/24 07/24 Andrew Mcleod /2016 [facility] Procedures Procedure Code Date Perfomer Comments Source Tubal ligation [id number] [facility]
[2018-12-25 00:18] LABS: Absolute Monocytes 0.8 K/uL (0.1-1.3); Absolute Neutrophil 5.3 K/uL (1.8-8.0); Basophils % 0.6 % (0-1.3); Eosinophils % 3.5 % (0-4.4); Hematocrit 37.1 % (36.0-45.0); Lymphocytes % 13.9 % (15.3-44.8); MPV 7.4 fL (7.6-11.3); Monocytes % 11.2 % (3.3-12.3); RBC Red Blood Cell Count 3.84 M/uL (3.86-4.86)
[2018-12-25 00:30] LABS: Potassium 3.6 mmol/L (3.5-5.1)
--- NOTE | 2018-12-25 01:32 | ER ---
Nurse's Notes [facility] Name: Shanon Han Age: 88 yrs Sex: Female : 1930 Arrival Date: 12/24/2018 Time: 23:04 Bed 8 Private MD: Diagnosis: Left Mid shaft Humerus Fracture Presentation: 12/24 23:05 Presenting complaint: EMS states: Pt had an xray today on left arm and was confirmed tl2 for "oblique medially displaced fracture of mid-left humerus." Pt states she fell several days ago but was not followed up with. left upper arm is swollen and bruised. Transition of care: patient was received from another setting of care ([facility]. Onset of symptoms was December 24, 2018. Risk Assessment: Do you want to hurt yourself or someone else? Patient reports no desire to harm self or others. Initial Sepsis Screen: Does the patient meet any 2 criteria? No. Patient's initial sepsis screen is negative. Does the patient have a suspected source of infection? No. Patient's initial sepsis screen is negative. Care prior to arrival: None. 23:05 Method Of Arrival: EMS: [facility] tl2 23:05 Acuity: HEMANT 3 tl2 Triage Assessment: 23:15 General: Appears in no apparent distress. comfortable, Behavior is calm, cooperative, tl2 appropriate for age. Pain: Complains of pain in left tricep. Neuro: Level of Consciousness is awake, alert, obeys commands, Oriented to person, place, time, situation. Cardiovascular: Denies chest pain. Respiratory: Airway is patent Respiratory effort is even, unlabored, Respiratory pattern is regular, symmetrical. GI: No signs and/or symptoms were reported involving the gastrointestinal system. Musculoskeletal: Circulation, motion, and sensation intact. Swelling present in left upper arm. Injury Description: Bruise sustained to left upper arm. Historical: - Allergies: 23:15 No Known Allergies; tl2 - Home Meds: 23:15 acetaminophen 500 mg Oral tab 2 tabs every 6 hours [Active]; aspirin 81 mg Oral TbEC 1 tl2 tab once daily [Active]; carbidopa-levodopa 25-250 mg Oral tab 1 tab 4 times per day [Active]; levothyroxine 150 mcg tab 1 tab once daily [Active]; Restasis 0.05 % ophthalmic dpet 1 drop 2 times per day [Active]; paroxetine HCl 20 mg Oral tab 1.5 tab once daily [Active]; venlafaxine 37.5 mg Oral tab 1 tab 3 times per day [Active]; rivastigmine 9.5 mg/24 hr transdermal pt24 [Active]; clonidine HCl 0.1 mg Oral tab 1 tab 4 times per day [Active]; lisinopril 20 mg Oral tab 1 tab once daily [Active]; docusate sodium 100 mg Oral cap 1 cap 2 times per day [Active]; Seroquel 25 mg Oral tab 1 tab [Active]; acetaminophen-codeine 300-30 mg Oral tab 1 tab every 6 hours [Active]; ferrous sulfate 325 mg (65 mg iron) Oral tab [Active]; amlodipine 2.5 mg tab 2 tabs once daily [Active]; - PMHx: 23:15 Anxiety; Depression; Hypertension; Hypothyroidism; Parkinsons; COPD; tl2 - Immunization history:: Adult Immunizations up to date. - Social history:: Smoking status: Patient/guardian denies using tobacco. - Ebola Screening: : No symptoms or risks identified at this time. Screenin:59 Abuse screen: Denies threats or abuse. Nutritional screening: No deficits noted. tl2 Tuberculosis screening: No symptoms or risk factors identified. Fall Risk Fall in past 12 months (25 points). IV access (20 points). Gait- Impaired (20 pts.). Assessment: 23:15 General: see triage assessment. tl2 12/25 00:01 Reassessment: Patient appears in no apparent distress at this time. Patient and/or tl2 family updated on plan of care and expected duration. Pain level reassessed. Patient is alert, oriented x 3, equal unlabored respirations, skin warm/dry/pink. awaiting xray results. 01:22 Reassessment: Patient appears in no apparent distress at this time. Patient and/or tl2 family updated on plan of care and expected duration. Pain level reassessed. Patient is alert, oriented x 3, equal unlabored respirations, skin warm/dry/pink. sling placed and wrapped with SHAUN Young at bedside. Awaiting form of transport before discharging patient. 01:59 Reassessment: Patient appears in no apparent distress at this time. Patient and/or tl2 family updated on plan of care and expected duration. Pain level reassessed. Assisted family with placing pt in car to transport back to [facility]. Vital Signs: 12/24 23:15 BP 153 / 62; Pulse 81; Resp 18; Temp 98.3(O); Pulse Ox 98% on R/A; Weight 77.11 kg; tl2 Height 5 ft. 3 in. (160.02 cm); 12/25 00:01 BP 145 / 56; Pulse 83; Resp 18; Pulse Ox 100% on R/A; tl2 01:59 BP 156 / 64; Pulse 77; Resp 18; Pulse Ox 99% on R/A; tl2 12/24 23:15 Body Mass Index 30.11 (77.11 kg, 160.02 cm) tl2 ED Course: 12/24 23:04 Patient arrived in ED. tl2 23:07 Hector Smith PA is PHCP. jr8 23:07 Terrence Land MD is Attending Physician. jr8 23:07 Triage completed. tl2 23:15 Arm band placed on right wrist. tl2 23:42 X-ray completed. Portable x-ray completed in exam room. Patient tolerated procedure sg4 well. 23:46 XRAY Humerus LEFT In Process Unspecified. EDMS 23:55 Inserted saline lock: 22 gauge in right antecubital area, using aseptic technique. tl2 Blood collected. placed by kwame Clay. 23:58 CBC with Diff Sent. tl2 23:58 Basic Metabolic Panel Sent. tl2 23:59 Patient has correct armband on for positive identification. Placed in gown. Bed in low tl2 position. Call light in reach. Side rails up X2. Adult w/ patient. 12/25 01:22 Vernell Ortiz, SAÚL is Primary Nurse. tl2 01:31 Sundar Agarwal MD is Referral Physician. jr8 01:40 Fadi wrap to left arm Sling applied to left arm. tl2 02:01 Cleaned of incontinence. tl2 02:01 No provider procedures requiring assistance completed. IV discontinued, intact, tl2 bleeding controlled, No redness/swelling at site. Pressure dressing applied. Administered Medications: No medications were administered Outcome: :31 Discharge ordered by . jr8 02:01 Discharged to [facility]. tl2 02:01 Condition: stable 02:01 Discharge instructions given to family, Instructed on discharge instructions, follow up and referral plans. Demonstrated understanding of instructions, follow-up care. 02:02 Patient left the ED. tl2 Signatures: Dispatcher [employer] Hector Nogueira PA PA jr8 Vernell Ortiz RN RN tl2 Toshia Alston sg4
--- NOTE | 2018-12-25 01:32 | EDPHYS ---
Physician Documentation [facility] Name: Shanon Han Age: 88 yrs Sex: Female : 1930 Arrival Date: 12/24/2018 Time: 23:04 Bed 8 Private MD: ED Physician Terrence Land HPI: 12/25 00:12 This 88 yrs old Female presents to ER via EMS with complaints of fractured jr8 humerus. 01:19 The patient or guardian complains of decreased range of motion, deformity, pain, jr8 swelling, tenderness. The complaints affect the left bicep. Context: The problem was sustained at a [facility] or assisted living facility, resulted from a fall. Onset: The symptoms/episode began/occurred at an unknown time. Modifying factors: The symptoms are alleviated by nothing. the symptoms are aggravated by movement. Associated signs and symptoms: The patient has no apparent associated signs or symptoms. Severity of symptoms: At their worst the symptoms were moderate, in the emergency department the symptoms are unchanged. The patient has experienced a previous episode. The patient has not recently seen a physician. Patient with history of dementia. Currently resides at [facility]. Came in via EMS tonight for humerus fracture left side. Patient stated that she thinks she did it a few days ago. Unclear time frame of fracture. Obvious swelling and deformity to mid shaft left humeral region present . Historical: - Allergies: 12/24 23:15 No Known Allergies; tl2 - Home Meds: 23:15 acetaminophen 500 mg Oral tab 2 tabs every 6 hours [Active]; aspirin 81 mg Oral TbEC 1 tl2 tab once daily [Active]; carbidopa-levodopa 25-250 mg Oral tab 1 tab 4 times per day [Active]; levothyroxine 150 mcg tab 1 tab once daily [Active]; Restasis 0.05 % ophthalmic dpet 1 drop 2 times per day [Active]; paroxetine HCl 20 mg Oral tab 1.5 tab once daily [Active]; venlafaxine 37.5 mg Oral tab 1 tab 3 times per day [Active]; rivastigmine 9.5 mg/24 hr transdermal pt24 [Active]; clonidine HCl 0.1 mg Oral tab 1 tab 4 times per day [Active]; lisinopril 20 mg Oral tab 1 tab once daily [Active]; docusate sodium 100 mg Oral cap 1 cap 2 times per day [Active]; Seroquel 25 mg Oral tab 1 tab [Active]; acetaminophen-codeine 300-30 mg Oral tab 1 tab every 6 hours [Active]; ferrous sulfate 325 mg (65 mg iron) Oral tab [Active]; amlodipine 2.5 mg tab 2 tabs once daily [Active]; - PMHx: 23:15 Anxiety; Depression; Hypertension; Hypothyroidism; Parkinsons; COPD; tl2 - Immunization history:: Adult Immunizations up to date. - Social history:: Smoking status: Patient/guardian denies using tobacco. - Ebola Screening: : No symptoms or risks identified at this time. ROS: 12/25 01:19 Eyes: Negative for injury, pain, redness, and discharge, ENT: Negative for injury, jr8 pain, and discharge, Neck: Negative for injury, pain, and swelling, Cardiovascular: Negative for chest pain, palpitations, and edema, Respiratory: Negative for shortness of breath, cough, wheezing, and pleuritic chest pain, Abdomen/GI: Negative for abdominal pain, nausea, vomiting, diarrhea, and constipation, Back: Negative for injury and pain, Skin: Negative for injury, rash, and discoloration, Neuro: Negative for headache, weakness, numbness, tingling, and seizure. MS/extremity: Positive for injury or acute deformity, decreased range of motion, ecchymosis, swelling, tenderness, of the left arm. Exam: 01:19 Eyes: Pupils equal round and reactive to light, extra-ocular motions intact. Lids and jr8 lashes normal. Conjunctiva and sclera are non-icteric and not injected. Cornea within normal limits. Periorbital areas with no swelling, redness, or edema. ENT: Nares patent. No nasal discharge, no septal abnormalities noted. Tympanic membranes are normal and external auditory canals are clear. Oropharynx with no redness, swelling, or masses, exudates, or evidence of obstruction, uvula midline. Mucous membranes moist. Neck: Trachea midline, no thyromegaly or masses palpated, and no cervical lymphadenopathy. Supple, full range of motion without nuchal rigidity, or vertebral point tenderness. No Meningismus. Chest/axilla: Normal chest wall appearance and motion. Nontender with no deformity. No lesions are appreciated. Cardiovascular: Regular rate and rhythm with a normal S1 and S2. No gallops, murmurs, or rubs. Normal PMI, no JVD. No pulse deficits. Respiratory: Lungs have equal breath sounds bilaterally, clear to auscultation and percussion. No rales, rhonchi or wheezes noted. No increased work of breathing, no retractions or nasal flaring. Abdomen/GI: Soft, non-tender, with normal bowel sounds. No distension or tympany. No guarding or rebound. No evidence of tenderness throughout. Back: No spinal tenderness. No costovertebral tenderness. Full range of motion. Skin: Warm, dry with normal turgor. Normal color with no rashes, no lesions, and no evidence of cellulitis. Neuro: Awake and alert, GCS 15, oriented to person, place, time, and situation. Cranial nerves II-XII grossly intact. Motor strength 5/5 in all extremities. Sensory grossly intact. Cerebellar exam normal. Normal gait. 01:19 Musculoskeletal/extremity: Extremities: grossly normal except: noted in the left arm: Patient has swollen left humeral region. Shoulder without any step off. Deformity to mid shaft humerus with ecchymosis. No skin tenting or laceration noted. Patient able to flex and extend wrist. Make the "ok " sign. Abduct all fingers. Normal sensation throughout arm and hand. Pulses 2+ radial bilaterally . Vital Signs: 12/24 23:15 BP 153 / 62; Pulse 81; Resp 18; Temp 98.3(O); Pulse Ox 98% on R/A; Weight 77.11 kg; tl2 Height 5 ft. 3 in. (160.02 cm); 12/25 00:01 BP 145 / 56; Pulse 83; Resp 18; Pulse Ox 100% on R/A; tl2 01:59 BP 156 / 64; Pulse 77; Resp 18; Pulse Ox 99% on R/A; tl2 12/24 23:15 Body Mass Index 30.11 (77.11 kg, 160.02 cm) tl2 Procedures: 01:19 Splinting: Splint applied to left arm using sling, applied by myself. nurse. Examined jr8 by in, post splint application: neurovascular intact, 2+ distal pulses palpable, brisk capillary refill noted, Patient tolerated well. MDM: 12/24 23:07 Patient medically screened. jr8 12/25 01:19 Data reviewed: vital signs, nurses notes, radiologic studies, plain films, and as a jr8 result, I will discharge patient. Data interpreted: Pulse oximetry: on room air is 100 %. Interpretation: normal. Counseling: I had a detailed discussion with the patient and/or guardian regarding: the historical points, exam findings, and any diagnostic results supporting the discharge/admit diagnosis, radiology results, the need for outpatient follow up, a orthopedic surgeon, to return to the emergency department if symptoms worsen or persist or if there are any questions or concerns that arise at home. 12/24 23:25 Order name: CBC with Diff jr8 12/24 23:25 Order name: Basic Metabolic Panel; Complete Time: 00:48 jr8 12/24 23:25 Order name: XRAY Humerus LEFT jr8 12/24 23:25 Order name: IV; Complete Time: 23:58 jr8 Administered Medications: No medications were administered Disposition: 07:09 Co-signature as Attending Physician, Terrence Land MD I agree with the assessment and tw4 plan of care. Disposition: 12/25/18 01:31 Discharged to Home. Impression: Left Mid shaft Humerus Fracture . - Condition is Stable. - Discharge Instructions: Humerus Fracture Treated With Immobilization, Humerus Fracture Treated With ORIF. - Medication Reconciliation Form, Thank You Letter, Antibiotic Education, Prescription Opioid Use form. - Follow up: Sundar Agarwal MD; When: 2 - 3 days; Reason: Recheck today's complaints, Continuance of care, Re-evaluation by your physician. - Problem is new. - Symptoms have improved. Signatures: Dispatcher [employer] EDMS Hector Smith PA PA jr8 Vernell Ortiz RN RN tl2 Terrence Land MD MD tw4 Corrections: (The following items were deleted from the chart) 02:02 01:31 12/25/2018 01:31 Discharged to Home. Impression: Left Mid shaft Humerus Fracture tl2 . Condition is Stable. Forms are Medication Reconciliation Form, Thank You Letter, Antibiotic Education, Prescription Opioid Use. Follow up: Sundar Agarwal; When: 2 - 3 days; Reason: Recheck today's complaints, Continuance of care, Re-evaluation by your physician. Problem is new. Symptoms have improved. jr8
[2018-12-25 02:14] VITALS: TEMP 98.3
[2018-12-25 02:17] VITALS: BP 156/64; O2SAT 99
--- NOTE | 2018-12-25 09:22 | RAD REPORT ---
EXAM DESCRIPTION: RAD - Humerus Left - 12/24/2018 11:47 pm CLINICAL HISTORY: Left arm pain FINDINGS: Oblique moderately displaced fracture involves the mid left humerus. Impaction fracture of the left humeral head/neck suspected of indeterminate age. Large amount of calc ification surrounds the proximal left humerus likely the sequela of the trauma.
== END 2018-12-25 02:02 | disposition home or self-care (01) ==
LOC: ER 23:01
PROC: 2W3DX1Z Immobilization of Left Lower Arm using Splint (ICD-10-PCS; principal; 2018-12-25)
DX: S42.302A Unspecified fracture of shaft of humerus, left arm, initial encounter for closed fracture (principal); W19.XXXA Unspecified fall, initial encounter; Y93.9 Activity, unspecified; Y92.129 Unspecified place in nursing home as the place of occurrence of the external cause; Z79.82 Long term (current) use of aspirin; I10 Essential (primary) hypertension; G20 Parkinson's disease; F02.80 Dementia in other diseases classified elsewhere, unspecified severity, without behavioral disturbance, psychotic disturbance, mood disturbance, and anxiety; F32.9 Major depressive disorder, single episode, unspecified; F41.9 Anxiety disorder, unspecified; E03.9 Hypothyroidism, unspecified
CPT/HCPCS: 36415; 80048; 85025; 99284

== ENCOUNTER 2019-01-07 21:34 | Emergency (ER) | payer OTHER ==
--- OUTSIDE RECORDS SUMMARY | 2019-01-07 21:37 | XMS REPORT | Continuity of Care Document ---
:1930 Author Organization Interface Problems Problem Status Onset Classification Date Comments Source Date Reported ZENKERS Active 09/06/20 [facility] ZENKERS Active 09/06/20 [facility]ERTICULUM 18 [facility] Discharge 07/24/20 07/27/2017 [facility] Diagnosis: 17 Medical Injury To Center Ligament Of Cervical Spine CERVICAL INJURY Active 07/23/20 [place] [address] [facility] HTN (<span Resolved Problem 07/27/2017 [facility] ID="[id number] Medical ">Confirmed</spa Center n>) Parkinson Resolved Problem 07/27/2017 [facility] disease [facility] Medications Medication Details Route Status Patient Ordering Order Source Instructions Provider Date Lisinopril 10 mg, 1 Inactive [facility] tab, Route: 017 Medical PO, Drug Center form: TAB, ONCE, Dosing Weight 113.636, kg, Priority: STAT, Start date: 07/24/17 13:56:00 CDT, Stop date: 07/24/17 13:56:00 CDTNotes: (Same as: Prinivil, Zestril) Ativan 0.5 mg, Inactive [facility] Route: IV, 017 Medical ONCE, Dosing Center Weight 113.636, kg, Start date: 07/24/17 11:56:00 CDT, Stop date: 07/24/17 11:56:00 CDT Acetaminophen 650 mg, 2 Inactive [facility] tab, Route: 017 Medical PO, Drug Center form: TAB, ONCE, Dosing Weight 113.636, kg, PRN Pain Score 1-5, Priority: STAT, Start date: 07/24/17 5:02:00 CDTNotes: Do not exceed 4 gm/day. (Same as: Tylenol) Zofran 4 mg, Route: Inactive [facility] IVP, Drug 017 Medical form: INJ, Center ONCE, Dosing Weight 113.636, kg, Priority: STAT, Start date: 07/24/17 5:02:00 CDT, Stop date: 07/24/17 5:02:00 CDT Iohexol 141 mL, Inactive [facility] Route: IVP, 017 Medical Drug Form: [place] SOLN, Dosing Weight 113.636, kg, ONCALL, STAT, Start date: 07/24/17 2:49:00 CDT, Duration: 1 doses or times, Dose=2.2ml/k g, Max [id number] -- "To be infused by Radiology Staff ONLY" Rocephin 1 gm, Route: Inactive [facility] IVPB, Drug 017 Medical form: [place] PDR/INJ, ONCE, Dosing Weight 113.636, kg, Priority: STAT, Start date: 07/24/17 0:22:00 CDT, Duration: 1 doses or times, Stop date: 07/24/17 0:22:00 CDT, ABX Indication: Urinary Tract Infection Fentanyl 50 Inactive [facility] microgram, 017 Medical Route: IVP, Center ONCE, Dosing Weight 113.636, kg, Priority: STAT, Start date: 07/23/17 23:41:00 CDT, Stop date: 07/23/17 23:41:00 CDT Saline Flush 10 mL, No Longer [facility] 0.9% Route: IVP, Active 017 Medical Drug Form: [place] INJ, Dosing Weight 113.636, kg, PRN, PRN [...] EXAM: XR CHEST 1 VIEW 09/12 - [facility] DX /2017 - [facility] Center DATE: 09/12/2018 9:11 AM BUTTON SPINDLER Read by: Janusz Ferrer MD Dictated Date/time: [...] EXAM: FLUOROSCOPY MODIFIED BARIUM SWALLOW 09/07 - [facility] swallow DX swallow DX /2017 - Medical EXAM: BARIUM ESOPHAGRAM WITH SINGLE CONTRAST. This report was dictated by a Child Neurologist/Fellow/Physician Twisting Frame Operator. I have personally Center reviewed the images as well as the interpretation and agree with the findings. Read by: Gilson Ellington MD Resident/Fellow/ Physician Twisting Frame Operator: Gilson Ellington MD Dictated Date/time: 09/07/18 14:40 DATE: 09/07/2018 7:26 AM BUTTON SPINDLER Electronically Signed by: Eduar Doll MD 09/07/18 [...] EXAM: FLUOROSCOPY MODIFIED BARIUM SWALLOW 09/07 - [facility] BA swallow swallow /2017 - Medical function function EXAM: BARIUM ESOPHAGRAM WITH SINGLE CONTRAST. This report was dictated by a Child Neurologist/Fellow/Physician Twisting Frame Operator. I have personally Center video DX video DX reviewed the images as well as the interpretation and agree with the findings. Read by: Gilson Ellington MD Resident/Fellow/ Physician Twisting Frame Operator: Gilson Ellington MD Dictated Date/time: 09/07/18 14:40 DATE: 09/07/2018 7:26 AM BUTTON SPINDLER Electronically Signed by: Eduar Doll MD 09/07/18 [...] EXAM: MRI CRANIOCERVICAL JUNCTION WITHOUT CONTRAST 07/24 [facility] Cranio-junc Cranio-juncti /2017 - Medical tion wo on wo This report was dictated by a Child Neurologist/ Fellow. I have personally reviewed the images [...] EXAM: XR CERVICAL SPINE 4 VIEWS 07/24 [facility] cervical 2 cervical 2 or /2016 - Medical or 3 view 3 view DX This report was dictated by a Child Neurologist/ Fellow. I have personally reviewed the images as Center DX well as the Resident's interpretation and agree with the findings. DATE: 07/24/2017 4:48AM CDT Read by: Forrest John MD Resident: Forrest John MD Dictated Date/time: 07/24/17 05:19 Electronically Signed by: Sil Womack MD 07/24/17 06:33 FINAL REPORT INDICATION: - include craniocervical junction. UPRIGHTS ONLY with UMKUMIUT J COMPARISON: None. TECHNIQUE: AP, open-mouth odontoid, [...] at C4-C7. 4. Diffuse osteopenia. [place] SECTION: ER BLOOD BANK Antibody Scrn Negative 07/24 [facility] RESULTS /2016 [facility] (07/23/17 11:41 PM) [place] BLOOD BANK ABO/Rh O NEG 07/24 [facility] RESULTS /2016 [facility] CHEM PANEL Lactic Acid 1.2 mMol/L 0.5 - 2.2 07/24 [facility] Lvl /2016 [facility] ELECTROLYTE AGAP 11.0 meq/L 10.0 - 07/24 [facility] S 20.0 [facility] ELECTROLYTE Calcium Lvl 9.5 mg/dL 8.5 - 10.5 07/24 [facility] S /2016 [facility] ELECTROLYTE CO2 28 meq/L 24 - 32 07/24 [facility] S /2017 [facility] ELECTROLYTE eGFR 77 07/24 Result Comment: The eGFR is calculated using the CKD-EPI formula. In most young, healthy individuals the eGFR will be >90 mL/ min/1.73m2. The eGFR declines with age. An eGFR of 60-89 may be normal in [facility] S mL/min/1. some populations, particularly the elderly, for whom the CKD-EPI formula has not been extensively validated. Use of the eGFR is not recommended in the following populations: [place] [address] [facility] Individuals with unstable creatinine concentrations, including [...] Lvl 111 mg/dL 70 - 99 07/24 [facility] ELECTROLYTE Creatinine 0.71 mg/dL 0.50 - 07/24 [facility] Lvl 1.40 [facility] ELECTROLYTE Sodium Lvl 140 meq/L 135 - 145 07/24 [facility] 2016 [facility] ELECTROLYTE BUN 20 mg/dL 7 - 22 07/[address] ELECTROLYTE Chloride Lvl 106 meq/L 95 - 109 07/24 [facility]2016 [facility] ELECTROLYTE Potassium Lvl 5.0 meq/L 3.5 - 5.1 07/24 [facility] [address] HEMATOLOGY Segs-Bands # 8.4 K/CMM 1.5 - 8.1 07/[address] [place] [address] HEMATOLOGY Lymphocytes # 1.0 K/CMM 1.0 - 5.5 07/[address] HEMATOLOGY Monocytes # 0.7 K/CMM 0.0 - 0.8 07/[address] [place] [address] HEMATOLOGY Lymphocytes 9.4 % 20.0 - 07/24 [facility] 40.0 [facility] HEMATOLOGY Eosinophils # 0.1 K/CMM 0.0 - 0.5 07/[address] HEMATOLOGY Basophils 0.3 % 0.0 - 1.0 07/[address] [place] [address] HEMATOLOGY Monocytes 6.5 % 2.0 - 12.0 07/24 2016 [facility] HEMATOLOGY Eosinophils 0.7 % 0.0 - 4.0 07/[address] [place] [address] HEMATOLOGY Segs 83.1 % 45.0 - 07/24 [place] 75.0 [facility] HEMATOLOGY WBC 10.2 K/CMM 3.7 - 10.4 07/24 [facility]2016 [facility] HEMATOLOGY MPV 7.2 fL 7.4 - 10.4 07/[address] HEMATOLOGY MCHC 32.7 g/dL 32.0 - 07/24 [place] 36.0 [facility] HEMATOLOGY Platelet 264 K/CMM 133 - 450 07/24 [facility] HEMATOLOGY Hct 40.9 % 36.0 - 07/24 [place] 48.0 [facility] HEMATOLOGY RDW 15.7 % 11.5 - 07/24 14.5 [facility] HEMATOLOGY MCH 31.9 pg 27.0 - 07/24 [place] 31.0 [facility] HEMATOLOGY MCV 97.5 fL 80.0 - 07/24 98.0 [facility] HEMATOLOGY Hgb 13.4 g/dL 12.0 - 07/24 [place] 16.0 [facility] HEMATOLOGY RBC 4.19 M/CMM 4.20 - 07/24 [place] 5.40 [facility] HEMATOLOGY G-value Rapid 11.4 K 5.0 - 11.6 07/24 [facility] d/ [facility] HEMATOLOGY ACT (TEG) 97 s 86 - 118 07/24 [facility] HEMATOLOGY [place] 0.4 min 07/24 [facility] HEMATOLOGY Estimated % 0.0 % 0.0 - 7.5 07/24 [facility] Lysis [facility] HEMATOLOGY Angle Rapid 80 degrees 64 - 80 07/24 [facility] HEMATOLOGY Max Amplitude 70 mm 52 - 71 07/24 [facility] HEMATOLOGY R-time Rapid 0.5 min 0.4 - 0.7 07/24 [facility] HEMATOLOGY K-time Rapid 0.8 min 0.6 - 2.3 07/24 [facility] URINE AND UA Turbidity Clear Clear 07/24 [facility] (07/23/17 11:41 PM) [place] URINE AND UA Color Yellow Yellow 07/24 [facility] Medical *NA* [place] (07/23/17 11:41 PM) URINE AND UA pH 5.5 5.0 - 8.0 07/24 [facility] URINE AND UA Spec Grav 1.015 <=1.030 07/24 [facility] URINE AND UA Protein Negative Negative 07/24 [facility] (07/23/17 11:41 PM) [place] URINE AND UA Bili Negative Negative 07/24 [facility] Medical *NA* [place] (07/23/17 11:41 PM) URINE AND UA Blood Moderate Negative 07/24 [facility] Medical *ABN* Center (07/23/17 11:41 PM) URINE AND UA 0.2 EU/dL 0.1 - 1.0 07/24 [facility] Urobilinogen [facility] URINE AND UA Nitrite Negative Negative 07/24 [facility] (07/23/17 11:41 PM) [place] URINE AND UA Ketones Negative Negative 07/24 [facility] *NA* [place] (07/23/17 11:41 PM) URINE AND UA Glucose Negative Negative 07/24 [facility] (07/23/17 11:41 PM) [place] URINE AND UA Leuk Est Moderate Negative 07/24 [facility] *ABN* [place] (07/23/17 11:41 PM) URINE AND UA RBC 3-5 /HPF 0 - 2 07/24 [facility] URINE AND UA Bacteria Few /HPF None Seen 07/24 [facility] STOOL /HPF [facility] URINE AND UA Mucus Few /LPF None Seen 07/24 [facility] STOOL /LPF [facility] URINE AND UA WBC 51-100 None Seen 07/24 [facility] STOOL /HPF /HPF [facility] URINE AND UA Sq Epi Few /LPF Few /LPF 07/24 [facility] [address] [place] [address] Chest/Abdom Chest/Abdomen EXAM: CT CHEST WITH CONTRAST 07/24 - [facility] en/Pelvis w /Pelvis w IV - [facility] IV contrast contrast CT EXAM: CT ABDOMEN AND PELVIS WITH CONTRAST This report was dictated by a Child Neurologist/Fellow. I have personally reviewed the images as [...] BONES WITHOUT CONTRAST, outside film interpretation 07/24 [facility] Consult Consult CT /2017 - [facility] CT Center DATE: 07/24/2017 12:43 AM CDT Read by: Sil Womack MD Dictated Date/time: 07/24/17 01:59 Electronically Signed by: Sil Womack MD 07/24/17 03:56 FINAL REPORT INDICATION: Following trauma transfer for higher level of care request for outside film interpretation of CT face without contrast performed on 07/23/2017 at 1551 hours from [facility] COMPARISON: None TECHNIQUE: Volumetric CT acquisition of [...] Brain-Outside EXAM: CT BRAIN WITHOUT CONTRAST 07/24 [facility] de Consult Consult CT - [facility] CT Center DATE: 07/24/2017 12:43 AM [...] EXAM: CT CERVICAL SPINE WITHOUT CONTRAST 07/24 [facility] de Consult Consult CT - [facility] CT Center DATE: 07/24/2017 12:43 AM CDT Read by: Sil Womack MD Dictated Date/time: 07/24/17 01:43 Electronically Signed by: Sil Womack MD 07/24/17 01:58 FINAL REPORT INDICATION: Following trauma transfer for higher level of care request for outside film interpretation of CT cervical spine without contrast performed at 1551 hours from [facility] COMPARISON: None TECHNIQUE: Volumetric acquisition of the [...] Source Temperature Oral (F) 98.7 F 07/24/2017 [facility] Systolic (mm Hg) 190 07/24/2017 [facility] Diastolic (mm Hg) 79 07/24/2017 [facility] Systolic (mm Hg) 184 07/24/2017 [facility] Diastolic (mm Hg) 83 07/24/2017 [facility] Systolic (mm Hg) 208 07/24/2017 [facility] Diastolic (mm Hg) 96 07/24/2017 [facility] Respitory Rate 14 07/24/2017 [facility] Respitory Rate 13 07/24/2017 [facility] Temperature Oral (F) 98.5 F 07/24/2017 [facility] Respitory Rate 16 07/24/2017 [facility] Temperature Oral (F) 98 F 07/24/2017 [facility] Height 157.48 cm 07/24/2017 [facility] BMI Calculated 45.82 07/24/2017 [facility] Weight 113.636 07/24/2017 [facility] Heart Rate 88 07/24/2017 [facility] Encounters Location Location Encounter Encounter Reason Attending ADM DC Status Source Details Type Number For Provider Date Date [facility] [id number] [place] 07/24 07/24 [facility] Procedures Procedure Code Date Perfomer Comments Source Tubal ligation [id number] [facility]
[2019-01-07] MEDS ORDERED: ACETAMINOPHEN 500 MG TAB ONE (22:20)
[2019-01-07] MEDS ORDERED: LIDOCAINE 1% W/EPI 1:100,000 MDV 50 ML VIAL ONE (22:23)
--- NOTE | 2019-01-08 00:13 | EDPHYS ---
Physician Documentation [facility] Name: Shanon Han Age: 88 yrs Sex: Female : 1930 Arrival Date: 01/07/2019 Time: 21:44 Bed 20 Private MD: ED Physician Jozef Mccarthy HPI: 01/07 22:05 This 88 yrs old Female presents to ER via EMS with complaints of Fall Injury. cp 22:05 Details of fall: The patient fell from an upright position. cp 22:05 Onset: The symptoms/episode began/occurred today. Associated injuries: The patient cp sustained injury to the head, laceration, of the forehead. Historical: - Allergies: 21:58 No Known Allergies; aj1 - Home Meds: 21:58 acetaminophen 325 mg oral cap 650 mg as needed [Active]; alendronate 70 mg oral tab 1 aj1 tab once wkly [Active]; amlodipine 2.5 mg tab 2 tabs once daily [Active]; aspirin 81 mg Oral TbEC 1 tab once daily [Active]; carbidopa-levodopa 25-250 mg Oral tab 1 tab 4 times per day [Active]; clonidine HCl 0.1 mg Oral tab 1 tab as needed [Active]; docusate sodium 100 mg Oral cap 1 cap 2 times per day [Active]; ferrous sulfate 325 mg (65 mg iron) Oral tab [Active]; levothyroxine 200 mcg oral tab 1 tab once daily [Active]; lisinopril 20 mg Oral tab 1 tab once daily [Active]; paroxetine HCl 20 mg Oral tab 1.5 tab once daily [Active]; Restasis 0.05 % ophthalmic dpet 1 drop 2 times per day [Active]; rivastigmine 9.5 mg/24 hr transdermal pt24 [Active]; Seroquel 25 mg Oral tab 1 tab [Active]; acetaminophen-codeine 300-30 mg Oral tab 1 tab every 6 hours [Active]; venlafaxine 37.5 mg Oral tab 1 tab 3 times per day [Active]; - PMHx: 21:58 Dementia; Anemia; iron deficiency; b12 deficiency; Hypothyroidism; Depression; Anxiety; aj1 Parkinsons; Hypertension; atherosclerosis of aorta; orthostatic hypotension; deviated septum; COPD; GERD; diverticulum of esophagus; acute kidney failure; dysphagia; humerus fracture; - Immunization history: Last tetanus immunization: unknown. - Social history:: Smoking status: Patient/guardian denies using tobacco. - Ebola Screening: : Patient denies travel to an Ebola-affected area in the 21 days before illness onset. ROS: 22:10 Constitutional: Negative for body aches, chills, fever, poor PO intake. cp 22:10 Neck: Negative for pain with movement, pain at rest, stiffness. cp 22:10 Cardiovascular: Negative for chest pain. 22:10 Respiratory: Negative for cough, shortness of breath. 22:10 Abdomen/GI: Negative for abdominal pain, vomiting, diarrhea, constipation. 22:10 Skin: Positive for laceration(s), of the forehead. 22:10 Neuro: Negative for altered mental status. 22:10 All other systems are negative. Exam: 22:25 Constitutional: The patient appears in no acute distress, alert, awake, cp non-diaphoretic, non-toxic, well developed, well nourished. 22:25 Head/face: Noted is a laceration(s), that is deep, of the forehead. cp 22:25 Eyes: Periorbital structures: appear normal, Conjunctiva: normal, no exudate, no injection, Lids and lashes: appear normal, bilaterally. 22:25 ENT: External ear(s): are unremarkable, Ear canal(s): are normal, Nose: is normal, Mouth: is normal, Posterior pharynx: Airway: no evidence of obstruction, patent. 22:25 Neck: C-spine: vertebral tenderness, is not appreciated, crepitus, is not appreciated. 22:25 Chest/axilla: Inspection: normal. 22:25 Cardiovascular: Rate: normal. 22:25 Respiratory: the patient does not display signs of respiratory distress, Respirations: normal, no use of accessory muscles. 22:25 Abdomen/GI: Inspection: abdomen appears normal. 22:25 Neuro: Orientation: no acute changes, per family, Mentation: no acute changes, per family. Vital Signs: 21:45 BP 178 / 69; Pulse 76; Resp 18; Temp 98.2; Pulse Ox 98% on R/A; Pain 0/10; aj1 22:16 BP 189 / 71; Pulse 77; Resp 18 S; Pulse Ox 99% on R/A; cc3 22:52 BP 168 / 72; Pulse 79; Resp 18 S; Pulse Ox 100% on R/A; cc3 23:00 BP 175 / 72; Pulse 79; Resp 18 S; Pulse Ox 99% on R/A; cc3 23:45 BP 157 / 73; Pulse 80; Resp 18 S; Pulse Ox 99% on R/A; cc3 01/08 00:20 BP 158 / 77; Pulse 82; Resp 17 S; Pulse Ox 99% on R/A; cc3 Remer Coma Score: 01/07 21:45 Eye Response: spontaneous(4). Verbal Response: confused(4). Motor Response: obeys aj1 commands(6). Total: 14. Trauma Score (Adult): 21:45 Eye Response: spontaneous(1); Verbal Response: confused(1); Motor Response: obeys aj1 commands(2); Systolic BP: > 89 mm Hg(4); Respiratory Rate: 10 to 29 per min(4); Remer Score: 14; Trauma Score: 12 Laceration: 01/08 00:05 Wound Repair of 4cm ( 1.6in ) subcutaneous laceration to forehead. Irregularly shaped.. cp Minimal bleeding noted.. Distal neuro/vascular/tendon intact. Anesthesia: Wound infiltrated with 3 mls of 1% lidocaine w/ Epi. Wound prep: Moderate cleansing by nurse. Skin closed with 7 5-0 Prolene using simple sutures and sterile technique. Dressed with Bacitracin, 4x4's. Patient tolerated well. 00:05 Wound Repair of 2.5cm ( 1.0in ) subcutaneous laceration to forehead. Linear shaped.. cp Distal neuro/vascular/tendon intact. Anesthesia: Wound infiltrated with 2 mls of 1% lidocaine w/ Epi. Wound prep: Moderate cleansing by nurse. Skin closed with 4 5-0 Prolene using simple sutures and sterile technique. Dressed with Bacitracin, Kerlix. Patient tolerated well. MDM: 01/07 21:53 Patient medically screened. cp 01/08 00:10 Data reviewed: vital signs, nurses notes, radiologic studies, CT scan. cp 00:10 Counseling: I had a detailed discussion with the patient and/or guardian regarding: the cp historical points, exam findings, and any diagnostic results supporting the discharge/admit diagnosis, radiology results, to return to the emergency department if symptoms worsen or persist or if there are any questions or concerns that arise at home. Response to treatment: the patient's symptoms have markedly improved after treatment, and as a result, I will discharge patient. Special discussion: Based on the patient's history, exam and DX evaluation, there is no indication for emergent intervention or inpatient TX. It is understood by the patient/guardian that if the SXs persist or worsen they need to return immediately for re-evaluation. 01/07 22:00 Order name: CT Head C Spine: fall cp 01/07 22:00 Order name: Dressing - Wound; Complete Time: 22:04 cp 01/07 22:00 Order name: Gloves, Sterile; Complete Time: 22:20 cp 01/07 22:00 Order name: Setup Suture Tray; Complete Time: 22:18 cp 01/07 23:05 Order name: Wound Care: please clean and irrigate wound; Complete Time: 23:08 cp 01/07 23:58 Order name: Wound dressing; Complete Time: 00:15 cp Administered Medications: 01/07 22:15 Drug: Tylenol 1000 mg Route: PO; cc3 23:04 Follow up: Response: No adverse reaction; Pain is decreased cc3 23:30 Drug: Lidocaine-Epinephrine -1%: (1:100,000) 5 ml {Note: Administered by SHAUN Flanagan cc3 Page.} Volume: 20 ml; Route: Infiltration; Site: wound; 01/08 00:00 Follow up: Response: No adverse reaction cc3 Disposition: 01:00 Chart complete. cp Disposition: 01/08/19 00:12 Discharged to Home. Impression: Fall from bed, Laceration without foreign body of other part of head - forehead. - Condition is Stable. - Discharge Instructions: Fall Prevention in the Home, Facial Laceration. - Medication Reconciliation Form, Thank You Letter, Antibiotic Education, Prescription Opioid Use form. - Follow up: Private Physician; When: 1 week; Reason: Staple/Suture removal. - Problem is new. - Symptoms have improved. Signatures: Dispatcher [employer] Conchis Horn RN RN aj1 Panchito Soto PA PA cp Cordel, Charlene cc3 Corrections: (The following items were deleted from the chart) 00:53 00:12 01/08/2019 00:12 Discharged to Home. Impression: Fall from bed; Laceration cc3 without foreign body of other part of head - forehead. Condition is Stable. Forms are Medication Reconciliation Form, Thank You Letter, Antibiotic Education, Prescription Opioid Use. Follow up: Private Physician; When: 1 week; Reason: Staple/Suture removal. Problem is new. Symptoms have improved. cp 23:32 23:20 Constitutional: The patient appears in no acute distress, alert, awake, cp non-toxic, well developed, well nourished, cp 23:32 23:20 Head/face: Noted is a laceration(s), that is deep, of the forehead, cp cp 23:32 23:20 Eyes: Periorbital structures: appear normal, Conjunctiva: normal, no exudate, no cp injection, Sclera: no appreciated abnormality, Lids and lashes: appear normal, bilaterally, cp 23:32 23:20 ENT: External ear(s): are unremarkable, Ear canal(s): are normal, Nose: is cp normal, Mouth: Lips: moist, Oral mucosa: moist, Posterior pharynx: Airway: no evidence of obstruction, patent, cp 23:32 23:20 Neck: C-spine: vertebral tenderness, is not appreciated, crepitus, is not cp appreciated, cp 23:32 23:20 Chest/axilla: Inspection: normal, cp cp 23:32 23:20 Cardiovascular: Rate: normal, cp cp 23:32 23:20 Respiratory: the patient does not display signs of respiratory distress, cp Respirations: normal, no use of accessory muscles, no retractions, no splinting, no tachypnea, cp 23:32 23:20 Abdomen/GI: Inspection: abdomen appears normal, cp cp 23:32 23:20 Neuro: Orientation: no acute changes, per family, Mentation: no acute changes, cp per family, cp
--- NOTE | 2019-01-08 00:13 | ER ---
Nurse's Notes [facility] Name: Shanon Han Age: 88 yrs Sex: Female : 1930 Arrival Date: 01/07/2019 Time: 21:44 Bed 20 Private MD: Diagnosis: Fall from bed;Laceration without foreign body of other part of head-forehead Presentation: 01/07 21:45 Presenting complaint: EMS states: Unwitnessed fall out of bed. Lacerations noted to aj1 forehead and back of head. Patient is alert and oriented x1, which assisted staff states is her normal mentation. Patient does not take blood thinners, no LOC, no vomiting per assisted staff. Patient has a cast to left arm for a humerus fracture she sustained when she fell one month ago. Patient denies any pain at this time. Care prior to arrival: None. Mechanism of Injury: Fall out of bed. Trauma event details: Injury occurred in the [facility]. 21:45 Acuity: HEMANT 3 aj1 21:45 Method Of Arrival: EMS: [facility] aj1 21:51 Transition of care: patient was received from [facility] setting [facility]. Onset of symptoms was January 07, 2019. Risk Assessment: Do you want to hurt yourself or someone else? Patient reports no desire to harm self or others. Initial Sepsis Screen: Does the patient meet any 2 criteria? No. Patient's initial sepsis screen is negative. Does the patient have a suspected source of infection? No. Patient's initial sepsis screen is negative. Trauma Activation: Alert Physician: ED Physician; Name: Panchito Soto; Notified At: 21:32; Arrived At: 21:32 Physician: General Surgeon; Name: ; Notified At: 21:32; Arrived At: Physician: Radiology; Name: ; Notified At: 21:32; Arrived At: Physician: Respiratory; Name: ; Notified At: 21:32; Arrived At: Physician: Lab; Name: ; Notified At: 21:32; Arrived At: Historical: - Allergies: 21:58 No Known Allergies; aj1 - Home Meds: 21:58 acetaminophen 325 mg oral cap 650 mg as needed [Active]; alendronate 70 mg oral tab 1 aj1 tab once wkly [Active]; amlodipine 2.5 mg tab 2 tabs once daily [Active]; aspirin 81 mg Oral TbEC 1 tab once daily [Active]; carbidopa-levodopa 25-250 mg Oral tab 1 tab 4 times per day [Active]; clonidine HCl 0.1 mg Oral tab 1 tab as needed [Active]; docusate sodium 100 mg Oral cap 1 cap 2 times per day [Active]; ferrous sulfate 325 mg (65 mg iron) Oral tab [Active]; levothyroxine 200 mcg oral tab 1 tab once daily [Active]; lisinopril 20 mg Oral tab 1 tab once daily [Active]; paroxetine HCl 20 mg Oral tab 1.5 tab once daily [Active]; Restasis 0.05 % ophthalmic dpet 1 drop 2 times per day [Active]; rivastigmine 9.5 mg/24 hr transdermal pt24 [Active]; Seroquel 25 mg Oral tab 1 tab [Active]; acetaminophen-codeine 300-30 mg Oral tab 1 tab every 6 hours [Active]; venlafaxine 37.5 mg Oral tab 1 tab 3 times per day [Active]; - PMHx: 21:58 Dementia; Anemia; iron deficiency; b12 deficiency; Hypothyroidism; Depression; Anxiety; aj1 Parkinsons; Hypertension; atherosclerosis of aorta; orthostatic hypotension; deviated septum; COPD; GERD; diverticulum of esophagus; acute kidney failure; dysphagia; humerus fracture; - Immunization history: Last tetanus immunization: unknown. - Social history:: Smoking status: Patient/guardian denies using tobacco. - Ebola Screening: : Patient denies travel to an Ebola-affected area in the 21 days before illness onset. Screenin:45 Abuse screen: Denies threats or abuse. Denies injuries from another. Tuberculosis aj1 screening: No symptoms or risk factors identified. 22:03 Nutritional screening: No deficits noted. Fall Risk Ambulatory Aid- None/Bed Rest/Nurse cc3 Assist (0 pts). Gait- Impaired (20 pts.). Mental Status- Overestimates/Forgets Limitations (15 pts.). Primary Survey: 21:45 NO uncontrolled hemorrhage observed. A: The patient is alert. Airway: patent. aj1 Breathing/Chest: Respiratory pattern: regular, Respiratory effort: spontaneous, unlabored, Chest inspection: symmetrical rise and fall of the chest. Circulation: Skin color: pink. Disability Alert. Exposure/Environment: There is no evidence of uncontrolled external bleeding. 22:03 Reassessment Airway Airway Patent Oxygen No O2 Breathing/Chest Respiratory pattern cc3 Regular Respiratory effort Spontaneous Unlabored Circulation Heart tones Present Disability Alert. Secondary Survey: 22:03 HEENT: Head Other laceration to forehead Face Other laceration to forehead Eyes: No cc3 injury or deformity noted. to bilateral eyes. Ears: clear bilaterally. Nose: clear to bilateral nares. Throat: is clear with gag reflex present. Assessment: 21:45 General: Appears in no apparent distress. comfortable, Behavior is calm, cooperative. aj1 Pain: Denies pain. Neuro: Level of Consciousness is awake, alert, obeys commands, confused, Oriented to person, Speech is normal, Facial symmetry appears normal. Cardiovascular: Heart tones S1 S2 present Patient's skin is warm and dry. Respiratory: Airway is patent Respiratory effort is even, unlabored, Respiratory pattern is regular, symmetrical. GI: No signs and/or symptoms were reported involving the gastrointestinal system. GI: Abdomen is non-distended, Abd is soft and non tender X 4 quads. : No signs and/or symptoms were reported regarding the genitourinary system. Derm: Skin is pink, warm \T\ dry. Musculoskeletal: Range of motion: limited in left elbow from previous humerus fracture. Injury Description: Laceration sustained to forehead moderate bleeding noted at this time. 22:00 Reassessment: Wound dressing done. cc3 22:50 Reassessment: Patient appears in no apparent distress at this time. Patient and/or cc3 family updated on plan of care and expected duration. Pain level reassessed. Patient is alert, oriented x 3, equal unlabored respirations, skin warm/dry/pink. Patient came back from CT scan department, awaiting result. 23:03 Reassessment: Patient appears in no apparent distress at this time. Patient and/or cc3 family updated on plan of care and expected duration. Pain level reassessed. Patient is alert, oriented x 3, equal unlabored respirations, skin warm/dry/pink. Patient denies pain at this time. Patient states feeling better. 01/08 00:53 Reassessment: Patient appears in no apparent distress at this time. Patient and/or cc3 family updated on plan of care and expected duration. Pain level reassessed. Patient is alert, oriented x 3, equal unlabored respirations, skin warm/dry/pink. SHAUN Soto discharged the patient home, no prescription given. No IV cannula in situ. Patient left ER vitally stable by wheelchair escorted by coil repair techniciankwame Johnson and the patient's daughter. Vital Signs: 01/07 21:45 BP 178 / 69; Pulse 76; Resp 18; Temp 98.2; Pulse Ox 98% on R/A; Pain 0/10; aj1 22:16 BP 189 / 71; Pulse 77; Resp 18 S; Pulse Ox 99% on R/A; cc3 22:52 BP 168 / 72; Pulse 79; Resp 18 S; Pulse Ox 100% on R/A; cc3 23:00 BP 175 / 72; Pulse 79; Resp 18 S; Pulse Ox 99% on R/A; cc3 23:45 BP 157 / 73; Pulse 80; Resp 18 S; Pulse Ox 99% on R/A; cc3 04 00:20 BP 158 / 77; Pulse 82; Resp 17 S; Pulse Ox 99% on R/A; cc3 Ahmet Coma Score: 01/07 21:45 Eye Response: spontaneous(4). Verbal Response: confused(4). Motor Response: obeys aj1 commands(6). Total: 14. Trauma Score (Adult): 21:45 Eye Response: spontaneous(1); Verbal Response: confused(1); Motor Response: obeys aj1 commands(2); Systolic BP: > 89 mm Hg(4); Respiratory Rate: 10 to 29 per min(4); [place] Score: 14; Trauma Score: 12 ED Course: 21:44 Patient arrived in ED. aj1 21:45 Patient has correct armband on for positive identification. Bed in low position. Side aj1 rails up X2. Adult w/ patient. 21:45 Patient maintains SpO2 saturation greater than 95% on room air. aj1 21:47 Triage completed. aj1 21:52 Panchito Soto PA is PHCP. cp 21:52 Jozef Mccarthy MD is Attending Physician. cp 21:58 Arm band placed on. aj1 21:59 Thermoregulation: warm blanket given to patient. aj1 22:03 Reba Moralez is Primary Nurse. cc3 22:37 CT completed. Patient tolerated procedure well. Patient moved to CT via stretcher. Patient moved back from CT. 22:39 CT Head C Spine: fall In Process Unspecified. EDMS 04 00:55 No provider procedures requiring assistance completed. Patient did not have IV access cc3 during this emergency room visit. Administered Medications: 01/07 22:15 Drug: Tylenol 1000 mg Route: PO; cc3 23:04 Follow up: Response: No adverse reaction; Pain is decreased cc3 23:30 Drug: Lidocaine-Epinephrine -1%: (1:100,000) 5 ml {Note: Administered by SHAUN Flanagan cc3 Page.} Volume: 20 ml; Route: Infiltration; Site: wound; 01/08 00:00 Follow up: Response: No adverse reaction cc3 Intake: 01/07 22:15 PO: 250ml (Water); Total: 250ml. cc3 Outcome: 01/08 00:12 Discharge ordered by . cp 00:53 Patient left the ED. cc3 00:53 Discharged to home via wheelchair, with family. cc3 00:53 Condition: stable 00:53 Discharge instructions given to patient, family, Instructed on discharge instructions, follow up and referral plans. Demonstrated understanding of instructions, follow-up care. 00:53 Patient's length of stay in the Emergency Department was greater than 2 hours[address] cc3 for CT scan result and wound suturing was done.Patient's length of stay extended due to Signatures: Dispatcher [employer] EDOH Conchis Lagos RN RN aj1 Yovany Griffith Panchito Soto PA PA cp Cordel, Charlene cc3 Corrections: (The following items were deleted from the chart) 02:14 02:11 PO 250, (Water), Intake Total 250. cc3 cc3
[2019-01-08 01:54] VITALS: TEMP 98.2
[2019-01-08 01:57] VITALS: O2SAT 99
[2019-01-08 01:58] VITALS: BP 157/73
--- NOTE | 2019-01-08 12:05 | RAD REPORT ---
EXAM DESCRIPTION: CT - Head C Spine Mpr Wo Con - 01/07/2019 11:07 pm CLINICAL HISTORY: The patient is 88 years old and is Female; headache TECHNIQUE: Axial computed tomography images of the head/brain and cervical spine without intravenous contrast. Sagittal and coronal reformatted images were created and reviewed. This CT exam was pe rformed using one or more of the following dose reduction techniques: automated exposure control, a djustment of the mA and/or kV according to patient size, and/or use of iterative reconstruction techn ique. COMPARISON: None. FINDINGS: BRAIN: Prominence of the cerebral sulci. Chappell-white differentiation is preserved. Confluent periventricular and subcortical white matter hypodensity. No hemorrhage. VENTRICLES: No hydrocephalus. SKULL: Diffuse osteopenia No acute fracture. SINUSES: Frontal sinuses are hypoplastic. No air fluid levels. MASTOID AIR CELLS: Unremarkable as visualized. No mastoid effusion. ORBITS: Prior cataract surgery. VERTEBRAE: Straightening of cervical lordosis with preservation of vertebral alignment. DISCS/SPINAL CANAL/NEURAL FORAMINA: Multilevel disc osteophyte complexes without significant spina l canal narrowing. SOFT TISSUES: Unremarkable. ESOPHAGUS: Posterior left laterally oriented diverticulum of the esophagus measuring 2.9 x 2.6 x 2 .7 cm with debris within it. Intraluminal debris are not seen on soft tissue axial images. IMPRESSION: Limited evaluation of the cervical spine due to patient's positioning. 1. No acute intracranial abnormality. 2. No acute fracture or subluxation. 3. Cerebral volume loss and chronic small vessel ischemic changes. 4. Left laterally oriented esophageal diverticulum. Esophagram is recommended. Electronically signed by: Jairo Spaulding DO 01/07/2019 10:51 PM CDT Due to temporary technical issues with the PACS/Fluency reporting system, reports are being signed by the in house radiologist as a courtesy to ensure prompt reporting. The interpreting radiologist is f ully responsible for the content of the report.
== END 2019-01-08 00:53 | disposition home or self-care (01) ==
LOC: ER 21:34
PROC: 0JQ10ZZ Repair Face Subcutaneous Tissue and Fascia, Open Approach (ICD-10-PCS; principal; 2019-01-08)
DX: S01.81XA Laceration without foreign body of other part of head, initial encounter (principal); W06.XXXA Fall from bed, initial encounter; Y93.9 Activity, unspecified; Y92.9 Unspecified place or not applicable; I10 Essential (primary) hypertension; N17.9 Acute kidney failure, unspecified; E03.9 Hypothyroidism, unspecified; F32.9 Major depressive disorder, single episode, unspecified; G20 Parkinson's disease; F02.80 Dementia in other diseases classified elsewhere, unspecified severity, without behavioral disturbance, psychotic disturbance, mood disturbance, and anxiety; F41.9 Anxiety disorder, unspecified; Z79.82 Long term (current) use of aspirin
CPT/HCPCS: 70450; 72125; 99285